=== PATIENT | female | born 1945 | race Caucasian/White ===

== ENCOUNTER 2021-10-30 08:20 | Day surgery (SDC) | payer OTHER ==
--- NOTE | 2021-10-29 12:44 | RAD REPORT ---
EXAM DESCRIPTION: Raciel Schmitz And Lupe (2 Views)10/29/2021 12:33 pm CLINICAL HISTORY: Preop for cardiac catheterization. Hypertension COMPARISON: None FINDINGS: The lungs appear clear of acute infiltrate. The heart is normal size IMPRESSION: No acute abnormalities displayed
[2021-10-29 13:07] LABS: Protime INR 0.94
[2021-10-29 13:32] LABS: Absolute Lymphocytes (CBC) 1.4 K/uL (0.7-4.9); Hematocrit 41.5 % (36.0-45.0); Lymphocytes % 27.6 % (15.3-44.8); MCV 96.7 fL (80-100); MPV 8.5 fL (7.6-11.3); RBC Red Blood Cell Count 4.29 M/uL (3.86-4.86)
[2021-10-29 13:50] LABS: Potassium 3.8 mmol/L (3.5-5.1)
[2021-10-30] MEDS ORDERED: NA CHLORIDE 0.9% 500 ML ONE (08:37)
[2021-10-30] MEDS ORDERED: FENTANYL CITR 100 MCG/2 ML ONE (08:59)
[2021-10-30] MEDS ORDERED: ATROPINE SULF 1 MG/10 ML SYR IV ONE (09:00)
[2021-10-30] MEDS ORDERED: MIDAZOLAM HCL 2 MG/2 ML INJ ONE (09:00)
[2021-10-30] MEDS ORDERED: NA CHLORIDE 0.9% 0 ML IV ONE (09:00)
[2021-10-30] MEDS ORDERED: DIPHENHYDRAMINE 50 MG/ML VIAL ONE (09:07)
[2021-10-30] MEDS ORDERED: METHYLPREDNISOLONE 125 MG INJ ONE (09:07)
[2021-10-30] MEDS ORDERED: HEPA 1000U/500MLS 1,000 UNIT/500 ML BAG IV ONE (09:27)
[2021-10-30 11:19] VITALS: O2SAT 97
--- NOTE | 2021-10-30 11:33 | OP ---
Date of Procedure: 10/30/2021 Surgeon: Randal Jeter MD [employer] Salesperson: Ms. Sunni Suarez. The patient will be at bedrest for 2 hours after her Angio-Seal and she will go home after that. We will see her in the office in the next 2 weeks. No change in medical therapy for now. Admitted on 10/30/2021 to the [facility] operator for an outpatient left heart catheterization, selective delgado ry arteriogram, common femoral artery angiogram. Indication: Unstable angina and multiple cardiac risk factors. Procedure In Detail: Ms. Hunter is 75, brought to the [facility] operator today 10/30/2021 as an outpatient, p repped and draped in routine sterile fashion. Given Versed and fentanyl for sedation. She also got 125 mg of Solu-Medrol because of iodine allergies. A 6-Mohawk sheath introduced in the right common femoral artery successfully using 10 cc of Xylocaine and Seldinger technique. Common femoral artery angiogram was normal. Angio-Seal was used to close the case. Sonu catheters were used. Initiall y, JL4 and JR4 both of them failed to cannulate the coronaries. On the left side, we used a JL3.5 an d on the right side, we used a 3DRC. She was found to have a normal RCA, was right dominant. She jung d diffuse plaquing in the circumflex and LAD without any focal stenosis. The patient tolerated the p rocedure well. There were no complications. Blood Loss: 5 mL. Postoperative Diagnosis: Mild coronary artery disease. Plan: Plan is for medical therapy. Anesthesia: Total conscious sedation 45 minutes. NB/MODL Voice ID: [id number] Report ID: [id number]
[2021-10-30 11:36] VITALS: BP 135/72
== END 2021-10-30 11:50 | disposition home or self-care (01) ==
LOC: CCL 08:20
DX: I25.110 Atherosclerotic heart disease of native coronary artery with unstable angina pectoris (principal); I34.0 Nonrheumatic mitral (valve) insufficiency; I10 Essential (primary) hypertension; E78.2 Mixed hyperlipidemia; I87.2 Venous insufficiency (chronic) (peripheral); E11.9 Type 2 diabetes mellitus without complications; Z87.891 Personal history of nicotine dependence; Z79.84 Long term (current) use of oral hypoglycemic drugs; Z79.02 Long term (current) use of antithrombotics/antiplatelets; Z79.899 Other long term (current) drug therapy; Z91.040 Latex allergy status; Z91.041 Radiographic dye allergy status; Z82.49 Family history of ischemic heart disease and other diseases of the circulatory system; Z82.3 Family history of stroke
CPT/HCPCS: 36415; 71046; 80048; 82947; 85025; 85610; 85730; 93454; C1760; C1893; G0269; J0583; J1200; J1644; J2250; J2930; J3010; J7040

== ENCOUNTER 2021-11-12 18:48 | Emergency (ER) | payer OTHER ==
--- OUTSIDE RECORDS SUMMARY | 2021-11-12 18:52 | XMS REPORT | Continuity of Care Document ---
:1945 Author Organization [facility] t Address [address] [place] [address] Dr. Penaloza [address] [place] [address] Care Team Providers Name Role Phone PCP, PATIENT DOES NOT HAVE A Primary Care Physician UnavailMaryanne Jade Attending Clinician Unavailable Lab, Ang - Db Attending Clinician Unavailable Nano Jalloh MD Attending Clinician ABDIRASHID GONZALEZ Attending Clinician Unavailable Yeni Attending Clinician Unavailable Stefany Nevarez PA-C Attending Clinician Jeannie Mims Attending Clinician Yeni Admitting Clinician Unavailable Payers Payer Name Policy Type Policy Number Effective Date Expiration Date S ource MEDICARE [place]: [id number] 2009 [employer] 00:00:00 AETNA (INDEMNITY) [id number] 2003 00:00:00 Problems Condition Condition Condition Status Onset Resolution Last Treating Co mments Source Name Details Category Date Date Treatment Clinician Date Sinus Sinus Disease Active Univers bradycardi bradycardi 7-19 it y of a a 00:00: [place] [facility] NSVT NSVT Disease Active Univers (nonsustai (nonsustai 7-19 it y of archana archana 00:00: [place] ventricula ventricula 00 Me dical r r Branch tachycardi tachycardi a) a) COVID-19 COVID-19 Disease Active Unive rs virus virus 09-25 [place] Pneumonia Pneumonia Disease Active Uni vers due to due to 09-25 [place] organism organism 00 Medica l Branch Hypoxia Hypoxia Disease Active Univers 7-17 ity of 00:00: [place] [facility] Pure Pure Disease Active 2009-03 Univers hyperchole hyperchole 1-29 it y of sterolemia sterolemia [place] Type II or Type II or Disease Active U nivers unspecifie unspecifie 4-06 it y of d type d type 00:00: [place] diabetes diabetes 00 Medica l mellitus mellitus Branch with with peripheral peripheral 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 Utility Essential Essential Disease Active Overview: Univers hypertensi hypertensi 3-27 Formattin ity of on on 00:00: g of this [place] 00 note Medical might be Branch different from the original. 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 Utility Allergies, Adverse Reactions, Alerts Allergy Allergy Status Severity Reaction(s) Onset Inactive Treating Comm ents Source Name Type Date Date Clinician iodine DA Active [facility] 09-24 [place] 00:00: [facility] tubercul DA Active [facility] in,PPD,m 718 [place] ulti-pun 00:00: Orthope cture 00 dic Hospita l nickel DA Active SV [facility] 09-24 [place] 00:00: [facility] 00 dic Hospita l latex DA Active MO [facility] 09-24 [place] 00:00: [facility]ope 00 dic Hospita l iodine DA Active [facility] 7-10 [facility] 00:[facility]: [facility]ospita 00 l of [place] tubercul DA Active [facility] in,PPD,m 7-10 [facility] ulti-pun 00:00: Hospita cture 00 l of [place] nickel DA Active [facility] 7-10 [facility] 00:00: Hospita 00 l of [place] iodine DA Active MO [facility] 5- Woman's 00:00: Hospita 00 l of [place] nickel DA Active MO [facility] 5- Woman's 00:00: Hospita 00 l of [place] latex DA Active MO [facility] 5- Woman's 00:00: Hospita 00 l of [place] Latex Propensi Active Rash Burning/p Unive rs ty to 05-26 ain ity of adverse 00:00: [place] reaction 00 Medical s Branch LATEX DRUG Active High Rash Univers INGREDI 05-26 ity of 00:00: [place] 00 Medical Branch iodine DA Active MO 2012-03 [facility] 03-10 [place] 00:00: [facility] 00 dic Hospita l niacin DA Active MO 2012-03 [facility] 03-10 [place] 00:00: [facility] 00 dic Hospita l latex DA Active MO 2012-03 [facility] 03-10 [place] 00:00: Orthope 00 dic Hospita l Iodine Propensi Active Anaphylaxis Uni vers ty to 327 ity of adverse 00:00: [place] reaction 00 Medical s Branch IODINE DRUG Active Anaphylaxis Unive rs INGREDI 06-03 ity of 00:00: [place] 00 Medical Branch Social History Social Habit Start Date Stop Date Quantity Comments Source Exposure to 2021-09-17 2021-09-27 Yes [facility] SARS-CoV-2 00:00:00 14:14:00 [place] [facility] (event) Branch Alcohol intake 2021-09-27 2021-09-27 Current University 00:00:00 00:00:00 non-drinker of [facility] alcohol (finding) [place] Tobacco use and 2021-09-24 2021-09-24 Smokeless tobacco Un iversity of exposure 00:00:00 00:00:00 non-user [facility] Sex Ass[birth year] Universit y of 00:00:00 00:00:00 [facility] Smoking Status Start Date Stop Date Source Never smoked tobacco [facility] Medications Ordered Filled Start Stop Current Ordering Indication Dosage Frequency Signature Comments Components Source Medication Medication Date Date Medication? Clinician (SIG) Name Name lisinopriL 2021- Yes [id number] 10mg Take 1 Univers 10 mg 7-21 10-20 tablet by ity of tablet 00:00: 04:59 mouth at [place] 00 :00 bedtime Medical for 90 Branch days. metFORMIN 2021- Yes [id number] 500mg Take 1 Univers 500 mg 7-21 10-20 tablet by ity of tablet 00:00: 04:59 mouth in [place] 00 :00 the Medical morning Branch for 90 days. mirtazapine 2021- Yes [id number] 7.5mg Take 1 Univers 7.5 mg 7-21 10-20 tablet by ity of tablet 00:00: 04:59 mouth at [place] 00 :00 bedtime Medical for 90 Branch days. Immunizations Ordered Filled Immunization Date Status Comments Sourc e Immunization Name Name Influenza Virus 2017-12-04 Completed Universit y of Vaccine [facility] 00:00:00 [place] Med ical Multi-dose 6+ MO Branch Pneumococcal 2012-09-23 Completed University o f Polysaccharide, 00:00:00 [place] Med ical PPSV23 (PNEUMOVAX) Branch Procedures Procedure Date / Time Performing Clinician Source Performed URINE CULTURE 2021-10-10 [facility]:19[facility] 2021-09-28 14:15:00 Yeimi [facility] HORMONE [facility] MICROALBUMIN URINE 2021-09-28 14:15:00 [facility] COMP. METABOLIC PANEL 2021-09-28 14:15:00 [id number] [place] LIPID PANEL 2021-09-28 14:15:00 [facility] ([id number])(TOTAL Medical Branch CHOLESTEROL, TRIGLYCERIDES, HDL) GLYCOSYLATED HEMOGLOBIN 2021-09-28 14:15:00 [facility] [place] ([facility] URINALYSIS 2021-09-28 14:15:00 [facility] HCV ANTIBODY 2021-09-28 14:15:00 [facility] VITAMIN D, 25-OH 2021-09-28 14:15:00 [facility] Encounters Start End Encounter Admission Attending Care Care Encounter Source Date/Time Date/Time Type Type Clinicians Facility Department ID 2021-04-[address] [id number] Common 13:37:37 Maryanne [address] [facility] 2021-09-28 2021-09-28 [place] [facility], Ang - Db [facility] [id number] Univers 09:00:00 09:46:20 [facility] [id number] [facility] [id number] Vito as MANASA?BLEA [phone] [place] [address] MEDICAL OFFICE BUILDING 2021-09-24 2021-09-24 Emergency X CARLOS HIMAMI ERT [id number] Univers 14:04:00 16:04:00 ABDIRASHID [facility] 2020-08-01 2020-08-01 Outpatient Scott_Harsha [facility] [id number] [place] 12:42:00 12:42:00 [id number] [facility] 2020-06-282020-06-28 Office Roque [facility] [id number] 13:40:14 14:10:14 Visit Stefany [facility] [id number] [place] [id number] [phone] Primary & 144 Specialty Care 2020-06-23 2020-06-23 Ancillary Rod [facility] [id number] 14:28:32 15:13:32 Visit [facility] [id number] [place] [id number] [phone] Primary & 141 Specialty Care Results Test Description Test Time Test Comments Results Result Comments Source HCV ANTIBODY 2021-09-28 22:13:17 Test Item Value Reference Range Interpretation Comme nts HCV Ab (test code = 46459-0) Negative HCV Semi-Quantitative (test code = 25889-0) [place] [facility] (A1C)2021-09-28 21:54:30 Test Item Value Reference Range Interpretation Comments HGB A1C (test code = 6.6 % 4-5.7 H 4548-4) YAHAIRA (test code = YAHAIRA) Reference RangesNormal: <5.7%Prediabetes: 5.7 - 6.4%Diabetes: > 6.5% Lab Interpretation (test Abnormal code = 62353-8) [place] [facility], [id number] 21:50:12 Test Item Value Reference Range Interpretation Comments VIT D 25OH (test code = 46 ng/mL 25-80 02712-4) YAHAIRA (test code = YAHAIRA) Deficiency: <20 ng/mLInsufficiency : 20-24 ng/mLOptimal: 25-80 ng/mL Lab Interpretation (test Normal code = 40623-2) [place] [facility] [id number] 21:08:47 Test Item Value Reference Range Interpretation Comments TSH (test code = See_Comment [Automated message] [id number]) The system [employer] generated this result transmitted ref erence range: 0.45 - 4 .70 mIU/L. The refe rence range was not u sed to interpret this result as normal/abnor mal. Lab Interpretation (test Normal code = 85795-5) [facility] [place] [facility]. METABOLIC PANEL ([id number])2021-09-28 20:52:03 Test Item Value Reference Range Interpretation Comments NA (test code = 142 mmol/L 135-145 3968723823) K (test code = 3.9 mmol/L 3.5-5 5341609447) CL (test code = 105 mmol/L 98-108 7445661973) CO2 TOTAL (test code = 31 mmol/L 23-31 1275471675) AGAP (test code = 2-16 1404691803) BUN (test code = 14 mg/dL 7-23 3717646569) GLUCOSE (test code = 98 mg/dL 70-110 4783910417) CREATININE (test code = 0.84 mg/dL 0.5-1.04 3587429384) TOTAL BILI (test code = 0.3 mg/dL 0.1-1.5 4443538375) CALCIUM (test code = 8.5 mg/dL 8.6-10.6 L 7339092700) T PROTEIN (test code = 5.7 g/dL 6.3-8.2 L 9764477816) ALBUMIN (test code = 3.5 g/dL 3.5-5 8056909490) ALK PHOS (test code = 68 U/L 34-122 0728220974) ALTv (test code = 15 U/L 5-35 1742-6) AST(SGOT) (test code = 26 U/L 13-40 7791063689) eGFR (test code = mL/min/1.73m2 1201949506) YAHAIRA (test code = YAHAIRA) Association of Glomerular Filtration Rate (GFR) and Staging of Kidney Disease* + --+ --+ ------+| GFR (mL/min/1.73 m2) ?| With Kidney Damage ?| ?Without Kidney Damage+ --------+ --------+ +| ?>90 ?| ?Stage one ?| ? Normal ?+ ---+ ---+ -------+| ?60-89 ?| ?Stage two ?| ? Decreased GFR ? + --+ --+ ------+| ?30-59 ?| ?Stage three ?| ? Stage three ? + --+ --+ ------+| ?15-29 ?| ?Stage four ? | ? Stage four ?+ ---+ ---+ -------+| ?<15 (or dialysis) ? ?| ?Stage five ? | ? Stage five ?+ ---+ ---+ -------+ *Each stage assumes the associated GFR level has been in effect for at least three months. ?Stages 1 to 5, with or without kidney disease, indicate chronic kidney disease. Notes: Determination of stages one and two (with eGFR >59mL/min/1.73 m2) requires estimation of kidney damage for at least three months as defined by structural or functional abnormalities of the kidney, manifested by either:Pathological abnormalities or Markers of kidney damage (including abnormalities in the composition of the blood or urine or abnormalities in imaging tests). Lab Interpretation Abnormal (test code = 72798-4) [place] [facility] (98157)(TOTAL CHOLESTEROL, TRIGLYCERIDES, HDL)2021-09-28 20:52:03 Test Item Value Reference Range Interpretation Comments CHOL (test code = 176 mg/dL 120-200 6434787506) HDL (test code = 45 mg/dL See_Comment L [Automated message] [id number]) The system [employer]am[employer] generated this result transmit john reference range : >=50. The refer ence range was not u sed to interpret th is result as normal/abnormal . HDLC RATIO (test code = See_Comment [Au tomated message] 5812513440) The system [employer] generated this result transmit john reference range : <=4.5. The refe rence range was not u sed to interpret th is result as normal/abnormal . TRIG (test code = 81 mg/dL 30-170 2476980265) LDL CHOL (test code = 115 mg/dL See_Comment [Auto mated message] 09695-4) The system [employer] generated this result transmit john reference range : <=160. The refe rence range was not u sed to interpret th is result as normal/abnormal . VLDL (test code = 16 mg/dL 5-60 1915035533) Lab Interpretation (test Abnormal code = 79335-3) [place] [facility]2019-07-19 17:21:00 Test Item Value Reference Range Interpretation Comments GLUBED (test code = GLUBED) 192 mg/dL 60-125 H [id number] 12:43:00 Test Item Value Reference Range Interpretation Comments GLUBED (test code = GLUBED) 138 mg/dL 60-125 H BASIC METABOLIC [id number] 07:12:00 Test Item Value Reference Range Interpretation Comments SODIUM (test code = NA) 140 mEq/L 135-145 POTASSIUM (test code = 4.8 mEq/L 3.5-5.0 K) CHLORIDE (test code = 106 mEq/L 100-115 CL) CARBON DIOXIDE (test 27 mEq/L 22-31 code = CO2) GLUCOSE (test code = 168 mg/dL 65-110 H GLU) BLOOD UREA NITROGEN 25 mg/dL 7-18 H (test code = BUN) GLOMERULAR FILTRATION 54.3 >60 Unit o f measure: RATE (test code = GFR) mL/mi n/1.73 w3Eybrytwcv Range:Healthy A dults >90 mL/min/1.73 m2 For Chronic Kid eda Disease: Stage II Mild Decrease i n GFR 60-90 Stage III Moderate Decrea se in GFR 30-59 Stag e IV Severe Decrease in GFR 15-29 Stage V Kidney Failure <15Unit of ruby ure: mL/min/1.73 x4Tdlopvets Range:Healthy A dults >90 mL/min/1.73 m2 For Chronic Kid eda Disease: Stage II Mild Decrease i n GFR 60-90 Stage III Moderate Decrea se in GFR 30-59 Stage IV Severe Decrease in GFR 15-29 Stag e V Kidney Failure <15 CREATININE (test code = 1.0 mg/dL 0.5-1.0 CREAT) CALCIUM (test code = 7.4 mg/dL 8.4-10.2 L CA) BASIC METABOLIC [id number] 07:11:00 Test Item Value Reference Range Interpretation Comments SODIUM (test code = NA) 140 mEq/L 135-145 N POTASSIUM (test code = K) 4.8 mEq/L 3.5-5.0 N CHLORIDE (test code = CL) 106 mEq/L 100-115 N CARBON DIOXIDE (test code = CO2) 27 mEq/L 22-31 N GLUCOSE (test code = GLU) 168 mg/dL 65-110 H BLOOD UREA NITROGEN (test code = 25 mg/dL 7-18 H BUN) GLOMERULAR FILTRATION RATE (test 54 ml/min >60 L code = GFR) CREATININE (test code = CREAT) 1.0 mg/dL 0.5-1.0 N CALCIUM (test code = CA) 7.4 mg/dL 8.4-10.2 L HGB [id number] 05:48:00 Test Item Value Reference Range Interpretation Comments HEMOGLOBIN (test code = HGB) 9.2 g/dL 12-16 L HEMATOCRIT (test code = HCT) 27.3 % 37-47 L [id number] 05:27:00 Test Item Value Reference Range Interpretation Comments GLUBED (test code = GLUBED) 150 mg/dL 60-125 H [id number] 20:15:00 Test Item Value Reference Range Interpretation Comments GLUBED (test code = GLUBED) 152 mg/dL 60-125 H [id number] 16:53:00 Test Item Value Reference Range Interpretation Comments GLUBED (test code = GLUBED) 170 mg/dL 60-125 H - XR PELVIS 1/2 [id number] 16:35:00 Patient Name: MAT WILLIAMSON Unit No: [id number] EXAMS: CPT CODE: [id number] XR PELVIS 1/2 VIEWS 19701 INTRAOPERATIVE LEG LENGTH FILM COMMENT: COMPARISON: No prior exams available. In progressright hip replacement is noted. AP PORTABLE RIGHT HIP COMMENT: The patient is status post joint replacement which is articulating normally. at 1635 Reported and signed by: Jake Shahid MD CC: Akin Ragsdale Technologist: MARU MANRIQUEZ (RT.R) Transcribed D/ (0655) t.CAMERON [facility] NAME: MAT WILLIAMSON [address] [facility] PHYS: Akin Kay : 1945 AGE: 72 SEX: F [place], [place] [address] LOC: Y.522 A PHONE #: [phone] EXAM DATE: 09/24/2018 ST ATUS: ADM IN FAX #: [phone] RAD #: D/C DT PAGE 1 Signed Report Patient Name: MAT WILLIAMSON Unit No: [id number] EXAMS: CPT CODE: [id number] XR PELVIS 1/2 VIEWS 18138 (Continued) Orig Print D/T: S: 09/24/2018 (163) [facility] NAME: MAT WILLIAMSON [address] [facility] PHYS: Akin Kay : 1945 AGE: 72 SEX: F [place], [place] [address] LOC: Y.522 A PHONE #: [phone] EXAM DATE: 09/24/2018 STATUS: ADM IN FAX #: [phone] RAD #: D/C DT PAGE 2 Signed Report - XR PELVIS 1/2 [id number] 16:35:00 Patient Name: MAT WILLIAMSON Unit No: [id number] EXAMS: CPT CODE: [id number] XR PELVIS 1/2 VIEWS 01489 INTRAOPERATIVE LEG LENGTH FILM COMMENT: COMPARISON: No prior exams available. In progressright hip replacement is noted. AP PORTABLE RIGHT HIP COMMENT: The patient is status post joint replacement which is articulating normally. at 1635 Reported and signed by: Jake Shahid MD CC: Akin Ragsdale Technologist: DESTINY YORK RT(R) Transcribed D/ (3605) DesiraeJCL [facility] NAME: MAT WILLIAMSON [address] [facility] PHYS: [place] - Akin Ragsdale : 1945 AGE: 72 SEX: F [place], [place] [address] LOC: Y.522 A PHONE #: [phone] EXAM DATE: 09/24/2018 ST ATUS: ADM IN FAX #: [phone] RAD #: D/C DT PAGE 1 Signed Report Patient Name: MAT WILLIAMSON Unit No: [id number] EXAMS: CPT CODE: [id number] XR PELVIS 1/2 VIEWS 91040 (Continued) Orig Print D/T: S: 09/24/2018 (163) [facility] NAME: MAT WILLIAMSON [address] [facility] PHYS: [place] - Akin Ragsdale : 1945 AGE: 72 SEX: F [place], [place] [address] LOC: YCindi2 A PHONE #: [phone] EXAM DATE: 09/24/2018 STATUS: ADM IN FAX #: [phone] RAD #: D/C DT PAGE 2 Signed [id number] 08:12:00 Test Item Value Reference Range Interpretation Comments GLUBED (test code = GLUBED) 85 mg/dL 60-125 N AB HIV 21:46:00 Test Item Value Reference Range Interpretation Comments AB HIV 1 (test code NONREACTIVE NONREACTIVE DONE AT: [facility] = HIV1AB) [facility] [address] [place], [place] [address]Done by [facility] aur 4th Gen HIV Ag/Ab C ombo Screen AB HIV 1 21:46:00 Test Item Value Reference Range Interpretation Comments AB HIV 1 2 (test NONREACTIVE NONREACTIVE Done by Sie [employer] code = [id number]) 4th Gen HIV Ag/Ab Combo Screen PROTHROMBIN [id number] 19:20:00 Test Item Value Reference Range Interpretation Comments PROTHROMBIN TIME 10.8 secs 10.1-12.5 N PATIENT (test code = PTP) INTERNATIONAL NORMAL 0.96 <2.0 RECOMME NDED THERAPEUTIC RATIO (test code = RANGE FOR ORAL INR) ANTICOAGULANTTR EATMENT: CONDITION INRPr ophylaxis of venous throm bosis in 2.0 - 3.0 high- risk medical or surg ical patientsTreatme nt of venous thrombos is 2.0 - 3.0Prevention o f embolism 2.0 - 3.0Prevention o f recurrent embol ism, or 3.0 - 4.5 patie nts with mechanical pros thetic intravascular v victor IS PATIENT ON ANTICOAGULANTS ? YLIST ANTICOAGULANT/ANTI PLT MEDICATION : AspirinHas Lab been notified if Patient is on Heparin Drip? NOIf Yes, order CBC, OCCULT BLOOD, PT every other day NTHROMBOPLASTIN TIME [id number] 19:20:00 Test Item Value Reference Range Interpretation Comments PTT ACTIVATED (test code = APTT) 29.9 secs 24.9-37.0 N IS PATIENT ON ANTICOAGULANTS ? YLIST ANTICOAGULANT/ANTI PLT MEDICATION : AspirinHas Lab been notified if Patient is on Heparin Drip? NOIf Yes, order CBC, OCCULT BLOOD, PT every other day NCOMPREHENSIVE METABOLIC [id number] 19:17:00 Test Item Value Reference Range Interpretation Comments SODIUM (test code = 142 mmol/L 136-145 N NA) POTASSIUM (test code = 3.7 mmol/L 3.5-5.1 N K) CHLORIDE (test code = 102.0 mmol/L 98-107 N CL) CARBON DIOXIDE (test 29.2 mmol/L 21-32 N code = CO2) GLUCOSE (test code = 87 mg/dL 70-110 N GLU) BLOOD UREA NITROGEN 22 mg/dL 7-18 H (test code = BUN) GLOMERULAR FILTRATION 52.5 >60 Unit o f measure: RATE (test code = GFR) mL/mi n/1.73 [id number] Range:Healthy Adults >90 mL/min/1.73 m2 For Chronic Kidney Disease: Stage II Mild Decrease i n GFR 60-90 Stage III Moderate Decrea se in GFR 30-59 St age IV Severe Decre ase in GFR 15-29 St age V Kidney Failur e <15 CREATININE (test code 1.03 mg/dL 0.55-1.30 N = CREAT) TOTAL PROTEIN (test 6.8 g/dL 6.4-8.2 N code = PROT) ALBUMIN (test code = 3.9 g/dL 3.4-5.0 N ALB) GLOBULIN (test code = 2.9 g/dL 2.2-4.2 N GLOB) ALBUMIN/GLOBULIN RATIO 1.3 0.7-2.0 N (test code = A/G) CALCIUM (test code = 8.9 mg/dL 8.2-10.1 N CA) BILIRUBIN TOTAL (test 0.27 mg/dL 0.2-1.00 N code = BILT) SGOT/AST (test code = 21.0 U/L 15-37 N AST) SGPT/ALT (test code = 23.0 U/L 12-78 N Please note new ALT) normal range. ALKALINE PHOSPHATASE 91 U/L 46-116 N TOTAL (test code = ALKP) URINALYSIS [id number] 19:02:00 Test Item Value Reference Range Interpretation Comments UA COLOR (test code = COLU) YELLOW YELLOW UA APPEARANCE (test code = CLEAR CLEAR APPU) UA GLUCOSE DIPSTICK (test code NEGATIVE NEGATIVE = DGLUU) UA BILIRUBIN DIPSTICK (test NEGATIVE NEGATIVE code = BILU) UA KETONE DIPSTICK (test code NEGATIVE mg/dL NEG = KETU) UA SPECIFIC GRAVITY (test code 1.010 1.003-1.035 = SGU) UA BLOOD DIPSTICK (test code = NEGATIVE NEGATIVE XAVI) UA PH DIPSTICK (test code = 6.5 >6.5 CLAUDIO) UA PROTEIN DIPSTICK (test code NEGATIVE mg/dL NEG = PROU) UA UROBILINIOGEN DIPSTICK 0.2 mg/dL NORM (test code = URO) UA NITRITE DIPSTICK (test code NEGATIVE NEG = JAMIN) UA LEUKOCYTE ESTERASE DIPSTICK TRACE NEGATIVE A (test code = LEUU) UA WBC (test code = WBCU) <5 /HPF 0-2 UA RBC (test code = RBCU) 0-2 /HPF 0-2 UA EPITHELIAL CELLS (test code FEW /HPF 0-2 = EPIU) UA BACTERIA (test code = BACU) FEW /HPF NONE CBC W/AUTO [id number] 18:55:00 Test Item Value Reference Range Interpretation Comments WHITE BLOOD CELL (test code = WBC) 5.9 K/mm3 5.8-11.0 N RED BLOOD CELL (test code = RBC) 3.79 M/mm3 4.2-5.4 L HEMOGLOBIN (test code = HGB) 11.8 g/dL 12-16 L HEMATOCRIT (test code = HCT) 35.8 % 37-47 L MEAN CELL VOLUME (test code = MCV) 95 fL 80-98 N MEAN CELL HGB (test code = MCH) 31.1 pg 27-34 N MEAN CELL HGB CONCENTRATION (test 33.0 g/dL 30.8-34.1 N code = MCHC) RED CELL DISTRIBUTION WIDTH (test 13.5 % 11-16 N code = RDW) PLT (test code = PLT) 187 K/mm3 130-400 N MEAN PLATELET VOLUME (test code = 11.5 fL 8.9-12.1 N MPV) NEUTROPHIL % (test code = NT%) 59.3 % 45-70 N LYMPHOCYTE % (test code = LY%) 32.7 % 20-40 N MONOCYTE % (test code = MO%) 5.6 % 3-10 N EOSINOPHIL % (test code = EO%) 1.9 % 1-5 N BASOPHIL % (test code = BA%) 0.3 % 0.0-1.1 N NEUTROPHIL # (test code = NT#) 3.51 K/mm3 2.00-7.50 N LYMPHOCYTE # (test code = LY#) 1.93 K/mm3 1.50-4.00 N MONOCYTE # (test code = MO#) 0.33 K/mm3 0.2-0.8 N EOSINOPHIL # (test code = EO#) 0.11 K/mm3 0.04-0.4 N BASOPHIL # (test code = BA#) 0.02 K/mm3 0.02-0.10 N MANUAL DIFF REQUIRED (test code = NO MANUAL DIFF MDIFF) NUCLEATED RED BLOOD CELL (test 0 % 0-0 N code = NRBC) GLYCOSYLATED HEMOGLOBIN (HA1C)2018-07-08 20:05:00 Test Item Value Reference Range Interpretation Comments GLYCOSYLATED 6.5 % 4.8-5.9 H Any condition t hat shortens HEMOGLOBIN (HA1C) erythocyte survival or (test code = GLYHGB) decreas esmean erythrocyte age (e.g., harmony very from acute blood los s,hemolytic anemai) will fa lsely lower HGBA1c resultsr egardless of the method used . HGBA1c results frompat ients with HbSS, HbCC and HbSc must be interpreted wit hcaution given the patho logical processes, incl uding anemia,increase d red cell turnover, trans fusion requirements, t hatadversely impact HGBA1c a s a marker of long-term glycemiccontrol . Alternative for ms of testing such as fructosaminesho uld be considered for these patients.DONE A T: [facility] [id number] [address], [place], [place] [address] GLYCOSYLATED HEMOGLOBIN [id number] 19:01:00 Test Item Value Reference Range Interpretation Comments GLYCOSYLATED 6.5 % 4.8-5.9 H Any condition t hat HEMOGLOBIN (HA1C) shortens e rythocyte (test code = survival or dec reasesmean GLYHGB) erythrocyte age (e.g., recovery from a cute blood loss,hemolytic anemia) will falsely lo wer HGBA1c resultsregardle ss of the method used. HG BA1c results from darrell prasad HbSS, HbCC, and HbSc must be interpreted with cautiongiven th e pathological pr ocesses, including anemia,increase d red cell turnover, trans fusion requirements, thatadversely i mpact HGBA1c as a mar ker of long-term glycemiccontrol . Alternative for ms of testing such as fructosaminesho uld be considered for these patients. MEAN BLOOD GLUCOSE 140 MG/DL 70-110 H (test code = MBG) COMPREHENSIVE METABOLIC [id number] 17:18:00 Test Item Value Reference Range Interpretation Comments SODIUM (test code = 139 mmol/L 136-145 N NA) POTASSIUM (test code = 3.9 mmol/L 3.5-5.1 N K) CHLORIDE (test code = 102.0 mmol/L 98-107 N CL) CARBON DIOXIDE (test 27.4 mmol/L 21-32 N code = CO2) GLUCOSE (test code = 98 mg/dL 70-110 N GLU) BLOOD UREA NITROGEN 14 mg/dL 7-18 N (test code = BUN) GLOMERULAR FILTRATION 59.8 >60 Unit o f measure: RATE (test code = GFR) mL/mi n/1.73 [id number] Range:Healthy Adults >90 mL/min/1.73 m2 For Chronic Kidney Disease: Stage II Mild Decrease i n GFR 60-90 Stage III Moderate Decrea se in GFR 30-59 St age IV Severe Decre ase in GFR 15-29 St age V Kidney Failur e <15 CREATININE (test code 0.92 mg/dL 0.55-1.30 N = CREAT) TOTAL PROTEIN (test 6.4 g/dL 6.4-8.2 N code = PROT) ALBUMIN (test code = 3.7 g/dL 3.4-5.0 N ALB) GLOBULIN (test code = 2.7 g/dL 2.2-4.2 N GLOB) ALBUMIN/GLOBULIN RATIO 1.4 0.7-2.0 N (test code = A/G) CALCIUM (test code = 8.6 mg/dL 8.2-10.1 N CA) BILIRUBIN TOTAL (test 0.33 mg/dL 0.2-1.00 N code = BILT) SGOT/AST (test code = 20.0 U/L 15-37 N AST) SGPT/ALT (test code = 23.0 U/L 12-78 N Please note new ALT) normal range. ALKALINE PHOSPHATASE 93 U/L 46-116 N TOTAL (test code = ALKP) PROTHROMBIN [id number] 16:54:00 Test Item Value Reference Range Interpretation Comments PROTHROMBIN TIME 10.4 secs 10.1-12.5 N PATIENT (test code = PTP) INTERNATIONAL NORMAL 0.92 <2.0 RECOMME NDED THERAPEUTIC RATIO (test code = RANGE FOR ORAL INR) ANTICOAGULANTTR EATMENT: CONDITION INRPr ophylaxis of venous throm bosis in 2.0 - 3.0 high- risk medical or surg ical patientsTreatme nt of venous thrombos is 2.0 - 3.0Prevention o f embolism 2.0 - 3.0Prevention o f recurrent embol ism, or 3.0 - 4.5 patie nts with mechanical pros thetic intravascular v victor IS PATIENT ON ANTICOAGULANTS ? YLIST ANTICOAGULANT/ANTI PLT MEDICATION : AspirinHas Lab been notified if Patient is on Heparin Drip? NOIf Yes, order CBC, OCCULT BLOOD, PT every other day NTHROMBOPLASTIN TIME [id number] 16:54:00 Test Item Value Reference Range Interpretation Comments PTT ACTIVATED (test code = APTT) 29.6 secs 24.9-37.0 N IS PATIENT ON ANTICOAGULANTS ? YLIST ANTICOAGULANT/ANTI PLT MEDICATION : AspirinHas Lab been notified if Patient is on Heparin Drip? NOIf Yes, order CBC, OCCULT BLOOD, PT every other day NCBC W/AUTO [id number] 16:21:00 Test Item Value Reference Range Interpretation Comments WHITE BLOOD CELL (test code = WBC) 5.5 K/mm3 5.8-11.0 L RED BLOOD CELL (test code = RBC) 3.73 M/mm3 4.2-5.4 L HEMOGLOBIN (test code = HGB) 11.6 g/dL 12-16 L HEMATOCRIT (test code = HCT) 35.1 % 37-47 L MEAN CELL VOLUME (test code = MCV) 94 fL 80-98 N MEAN CELL HGB (test code = MCH) 31.1 pg 27-34 N MEAN CELL HGB CONCENTRATION (test 33.0 g/dL 30.8-34.1 N code = MCHC) RED CELL DISTRIBUTION WIDTH (test 13.9 % 11-16 N code = RDW) PLT (test code = PLT) 195 K/mm3 130-400 N MEAN PLATELET VOLUME (test code = 11.1 fL 8.9-12.1 N MPV) NEUTROPHIL % (test code = NT%) 64.1 % 45-70 N LYMPHOCYTE % (test code = LY%) 26.9 % 20-40 N MONOCYTE % (test code = MO%) 7.1 % 3-10 N EOSINOPHIL % (test code = EO%) 1.3 % 1-5 N BASOPHIL % (test code = BA%) 0.4 % 0.0-1.1 N NEUTROPHIL # (test code = NT#) 3.53 K/mm3 2.00-7.50 N LYMPHOCYTE # (test code = LY#) 1.48 K/mm3 1.50-4.00 L MONOCYTE # (test code = MO#) 0.39 K/mm3 0.2-0.8 N EOSINOPHIL # (test code = EO#) 0.07 K/mm3 0.04-0.4 N BASOPHIL # (test code = BA#) 0.02 K/mm3 0.02-0.10 N MANUAL DIFF REQUIRED (test code = NO MANUAL DIFF MDIFF) NUCLEATED RED BLOOD CELL (test 0 % 0-0 N code = NRBC)
[2021-11-12] MEDS ORDERED: IBUPROFEN 200 MG TAB PO ONE (20:11)
[2021-11-12] MEDS ORDERED: IBUPROFEN 400 MG TAB ONE (20:11)
--- NOTE | 2021-11-12 20:57 | RAD REPORT ---
EXAM DESCRIPTION: RAD - Hand Left 3 View - 11/12/2021 8:50 pm CLINICAL HISTORY: PAIN COMPARISON: No comparisonsNo comparisons FINDINGS/IMPRESSION: No acute fracture. No malalignment. Moderate degenerative changes are present a t the base of the thumb.
--- NOTE | 2021-11-12 21:13 | ER ---
Nurse's Notes [facility] Name: Kathie Hunter Age: 75 yrs Sex: Female : 1945 Arrival Date: 11/12/2021 Time: 18:51 Bed 8 Private MD: Diagnosis: Pain in left hand Presentation: 11/12 18:55 Chief complaint: Patient states: I have left hand pain. My left hand hurts like hell. bm7 Coronavirus screen: At this time, the client does not indicate any symptoms associated with coronavirus-19. Ebola Screen: No symptoms or risks identified at this time. Initial Sepsis Screen: Does the patient meet any 2 criteria? No. Patient's initial sepsis screen is negative. Does the patient have a suspected source of infection? No. Patient's initial sepsis screen is negative. Risk Assessment: Do you want to hurt yourself or someone else? Patient reports no desire to harm self or others. Onset of symptoms is unknown. 18:55 Method Of Arrival: Ambulatory [facility] 18:55 Acuity: MAURICE 4 bm7 Triage Assessment: 18:56 General: Appears in no apparent distress. uncomfortable, Behavior is calm, cooperative, bm7 appropriate for age. Pain: Complains of pain in left hand Pain does not radiate. EENT: No deficits noted. No signs and/or symptoms were reported regarding the EENT system. Neuro: No deficits noted. Denies numbness in left hand. Cardiovascular: No deficits noted. Respiratory: No deficits noted. GI: No deficits noted. No signs and/or symptoms were reported involving the gastrointestinal system. : No deficits noted. No signs and/or symptoms were reported regarding the genitourinary system. Derm: No deficits noted. No signs and/or symptoms reported regarding the dermatologic system. Skin is intact, is healthy with good turgor, is fragile, is thin, Skin is dry, Skin is pink, warm \T\ dry. Skin temperature is warm. Musculoskeletal: Reports pain in left hand. Historical: - Allergies: 18:56 Iodine (Anaphylaxis); bm7 18:56 Latex, Natural Rubber; bm7 - Home Meds: 18:56 None [Active]; bm7 - PMHx: 18:56 diabetes mellitus; High Cholesterol; Hypertensive disorder; bm7 - PSHx: 18:56 TOTAL HIP REPLACEMENT; GASTRIC BYPASS; Tonsillectomy; HYSTERECTOMY; bm7 - Immunization history:: Adult Immunizations up to date, Client reports having NOT received the Covid vaccine. - Social history:: Smoking status: Patient denies any tobacco usage or history of. Screenin:31 Abuse screen: Denies threats or abuse. Nutritional screening: No deficits noted. vc1 Tuberculosis screening: No symptoms or risk factors identified. Fall Risk None identified. Vital Signs: 18:55 BP 185 / 95; Pulse 60; Resp 16; Temp 98.3(TE); Pulse Ox 100% on R/A; Weight 58.97 kg bm7 (R); Height 5 ft. 5 in. (165.10 cm); Pain 10/10; 21:07 BP 179 / 96; Pulse 57; Resp 16; Pulse Ox 100% ; vc1 18:55 Body Mass Index 21.63 (58.97 kg, 165.10 cm) bm7 ED Course: 18:51 Patient arrived in ED. ja2 18:56 Triage completed. bm7 18:56 Arm band placed on left wrist. bm7 19:01 Emanuel Rashid PA is PHCP. cp 19:01 Rogelio Zavala MD is Attending Physician. cp 19:47 David Lerner, AKUA is Primary Nurse. as6 19:50 Patient has correct armband on for positive identification. Bed in low position. Call vc1 light in reach. 20:52 XRAY Hand LEFT 3 View In Process Unspecified. EDMS 21:11 Les Morton MD is Referral Physician. cp 21:31 No provider procedures requiring assistance completed. Patient did not have IV access vc1 during this emergency room visit. Administered Medications: 20:04 Drug: Ibuprofen 600 mg Route: PO; vc1 21:30 Follow up: Response: No adverse reaction; Marked relief of symptoms vc1 Medication: 21:31 VIS not applicable for this client. vc1 Outcome: 21:13 Discharge ordered by . cp 21:31 Discharged to home ambulatory. vc1 21:31 Condition: good 21:31 Discharge instructions given to patient, Instructed on discharge instructions, follow up and referral plans. Demonstrated understanding of instructions, follow-up care. 21:43 Patient left the ED. vc1 Signatures: Dispatcher [employer] EDAR Emanuel Rashid PA PA Dona Kothari, RN RN bm7 Aisha Barnhart Ashby, RN RN as6 Caitlyn Fenton, RN RN vc1
--- NOTE | 2021-11-12 21:13 | EDPHYS ---
Physician Documentation [facility] Name: Kathie Hunter Age: 75 yrs Sex: Female : 1945 Arrival Date: 11/12/2021 Time: 18:51 Bed 8 Private MD: ED Physician Rogelio Zavala HPI: 11/12 20:00 This 75 yrs old Female presents to ER via Ambulatory with complaints of Hand Pain. cp 20:00 The patient or guardian reports pain, tenderness. The complaints affect the left fourth cp and fifth fingers. Context: resulted from an unknown cause. 20:00 Onset: The symptoms/episode began/occurred gradually, and became worse last night. cp 20:00 Associated signs and symptoms: Pertinent positives: tingling of left fourth and fifth cp fingers, Pertinent negatives: cyanosis distally. Severity of symptoms: in the emergency department the symptoms are unchanged, despite home interventions. Historical: - Allergies: 18:56 Iodine (Anaphylaxis); bm7 18:56 Latex, Natural Rubber; bm7 - Home Meds: 18:56 None [Active]; bm7 - PMHx: 18:56 diabetes mellitus; High Cholesterol; Hypertensive disorder; bm7 - PSHx: 18:56 TOTAL HIP REPLACEMENT; GASTRIC BYPASS; Tonsillectomy; HYSTERECTOMY; bm7 - Immunization history:: Adult Immunizations up to date, Client reports having NOT received the Covid vaccine. - Social history:: Smoking status: Patient denies any tobacco usage or history of. ROS: 20:05 Constitutional: Negative for chills, fever. cp 20:05 Neck: Negative for pain with movement, pain at rest, stiffness. cp 20:05 Back: Negative for pain at rest, pain with movement. 20:05 MS/extremity: Positive for pain, paresthesias, tenderness, of the left hand, Negative for injury or acute deformity, decreased range of motion, swelling, warmth. 20:05 All other systems are negative. Exam: 20:10 Constitutional: The patient appears in no acute distress, alert, awake, well developed, cp well nourished. 20:10 Head/Face: Normocephalic, atraumatic. cp 20:10 Neck: ROM/movement: is normal, is supple, without pain, no range of motions limitations. 20:10 Chest/axilla: Inspection: normal. 20:10 Cardiovascular: Rate: normal. 20:10 Musculoskeletal/extremity: Extremities: grossly normal except: noted in the left fourth and fifth fingers: pain, tenderness, There is no evidence of decreased ROM, deformity, ecchymosis, swelling, ROM: limited active range of motion due to pain, in the left hand, Pulses: noted to be 2+ in the left radial artery, Perfusion: the extremity is normally perfused throughout, the left fourth and fifth fingers decreased sensation. 20:10 Skin: cellulitis, is not appreciated, no rash present. Vital Signs: 18:55 BP 185 / 95; Pulse 60; Resp 16; Temp 98.3(TE); Pulse Ox 100% on R/A; Weight 58.97 kg bm7 (R); Height 5 ft. 5 in. (165.10 cm); Pain 10/10; 21:07 BP 179 / 96; Pulse 57; Resp 16; Pulse Ox 100% ; vc1 18:55 Body Mass Index 21.63 (58.97 kg, 165.10 cm) bm7 MDM: 19:48 Patient medically screened. cp 21:00 Differential diagnosis: dislocation, tendonitis, neuropathy, fracture. cp 21:12 Data reviewed: vital signs, nurses notes, radiologic studies, plain films. cp 21:12 Test interpretation: by ED physician or midlevel provider: plain radiologic studies. cp 21:12 Counseling: I had a detailed discussion with the patient and/or guardian regarding: the cp historical points, exam findings, and any diagnostic results supporting the discharge/admit diagnosis, radiology results, the need for outpatient follow up, a hand specialist, to return to the emergency department if symptoms worsen or persist or if there are any questions or concerns that arise at home. Response to treatment: the patient's symptoms have markedly improved after treatment, and as a result, I will discharge patient. 11/12 19:54 Order name: XRAY Hand LEFT 3 View; Complete Time: 21:09 cp 11/12 21:09 Order name: Splint - Thumb Spica; Complete Time: 21:30 cp Administered Medications: 20:04 Drug: Ibuprofen 600 mg Route: PO; vc1 21:30 Follow up: Response: No adverse reaction; Marked relief of symptoms vc1 Disposition Summary: 11/12/21 21:13 Discharge Ordered Location: Home cp Problem: new cp Symptoms: have improved cp Condition: Stable cp Diagnosis - Pain in left hand cp Followup: cp - With: Les Morton MD - When: 2 - 3 days - Reason: Recheck today's complaints Discharge Instructions: - Discharge Summary Sheet cp - Hand Exercises cp - Hand Pain cp Forms: - Medication Reconciliation Form cp - Thank You Letter cp - Antibiotic Education cp - Prescription Opioid Use cp Prescriptions: - Ibuprofen 600 mg Oral Tablet - take 1 tablet by ORAL route every 8 hours As needed take with food; 30 tablet; cp Refills: 0, Product Selection Permitted Signatures: Dispatcher [employer] EDMS Emanuel Rashid PA PA cp McCarthy, Brittany, RN RN bm7 Caitlyn Fenton RN RN vc1
[2021-11-12 23:16] VITALS: TEMP 98.3; O2SAT 100
[2021-11-12 23:19] VITALS: BP 179/96
== END 2021-11-12 21:43 | disposition home or self-care (01) ==
LOC: ER 18:48
DX: M79.642 Pain in left hand (principal); E11.9 Type 2 diabetes mellitus without complications; I10 Essential (primary) hypertension; Z91.040 Latex allergy status; Z91.048 Other nonmedicinal substance allergy status
CPT/HCPCS: 99283

== ENCOUNTER 2024-07-07 14:15 | Emergency (ER) | payer OTHER ==
--- OUTSIDE RECORDS SUMMARY | 2024-07-07 14:20 | XMS REPORT | Continuity of Care Document ---
Author Name Unknown Address [address] [facility] [place] [address] [facility] Address [address] [facility] [address] [place] [address] Care Team Providers Care Dietary Manager Name Role Phone No , Pcp Primary Care Physician Unavailab Maryanne Gao Attending Clinician Unavailable CURT REEVES Attending Clinician Unavailable JESUSITA SINGH Attending Clinician Unavail able TRED47 Attending Clinician Unavailable YUNG BRAGA Attending Clinician Unavailable LAB47 Attending Clinician Unavailable Ritesh Escobar MD Attending Clinician [phone] Sae Moreland MD Attending Clinician [phone] SAE MORELAND Attending Clinician Unavailab le Doctor Unassigned, [place] Attending Clinician U roxanne Gandhi MD, Nano Attending Clinician [phone] Lab, Ang - Db Attending Clinician Unavailable Pretty Wolff RN Attending Clinician Unavailab lauren Donohue MD, Abdirashid Mackay Attending Clinician [phone] ABDIRASHID DONOHUE Attending Clinician Unavailable MAXINE PRINCE Attending Clinician Unavailable Umair GALLO, Maxine Attending Clinician [phone] NADEEM WARREN Attending Clinician Unavailabl MATT Kate Attending Clinician Unavailable Briana GALLO, Nadeem Attending Clinician [phone] Kamila Quintero Attending Clinician + [phone] Derek PHD, Yarelis Mcnair Attending Clinician + [phone] YARELIS BILLINGS Attending Clinician Unavailab le Provider, [facility] Attending Clinician Unavailable Natasha Nolen Attending Clinician [phone] SUNNI MILLAN Attending Clinician Unavailable DEV CORADO Attending Clinician Unavailable Yeni Attending Clinician Unavailable Matt Martin PA-C Attending Clinician [phone] Jeannie Mims Attending Clinician +[phone] Sae Moreland MD Admitting Clinician [phone] SAE MORELAND Admitting Clinician Unavailab NADEEM Yoon Admitting Clinician Unavailabl lety Jaime Admitting Clinician Unavailable Payers Payer Name Policy Type Policy Number Effective Date Expirati on Date Source MEDICARE PART A \\T\\ B [id number] 2009 00:00:00 [employer] OPEN CHOICE PPO [id number] 2023 00:00:00 [employer] [place] 5 [id number] 2024 00:00:00 [employer] MEDICARE PPO 53 [id number] [facility] [place]IC[place]: [employer] [id number] 2009 00:00:00 [employer] (INDEMNITY) [id number] 2003 00:00:00 Problems Condition Name Condition Details Condition Category Status Onset Date Resolution Date Last Treatment Date Treating Clinician Comments Source Type 2 diabetes mellitus with stage 3a chronic kidney disease, without long-term current use of insulin (multi HCC) Type 2 diabetes mellitus with stage 3a chronic kidney disease, without long-term current use of insulin (multi HCC) Disease Active 04-16 00:00: 00 Mariah Alcala - [place] tabby Primary hypertensi on Primary hypertensi on Disease Active 04-16 00:00: 00 Mariah Alcala - [place] tabby Other hyperlipid emia Other hyperlipid emia Disease Active 04-16 00:00: 00 Mariah Hama tabby Age-relate d osteoporos is without current pathologic al fracture Age-relate d osteoporos is without current pathologic al fracture Disease Active 04-16 00:00: 00 Mariah Hama tabby Stage 3a chronic kidney disease Stage 3a chronic kidney disease Disease Active 04-16 00:00: 00 Mariah Alcala - [place] tabby Urinary incontinen ce Urinary incontinen ce Disease Active 04-16 00:00: 00 Mariah Hama l Statin intoleranc e Statin intoleranc e Disease Active 04-16 00:00: 00 Mariah Hama tabby Current severe episode of major depressive disorder without psychotic features (multi HCC) Current severe episode of major depressive disorder without psychotic features (multi HCC) Disease Active 04-16 00:00: 00 Mariah Hama tabby Sinus bradycardi a Sinus bradycardi a Disease Active 09-25 00:00: 00 [facility] NSVT (nonsustai archana ventricula r tachycardi a) NSVT (nonsustai archana ventricula r tachycardi a) Disease Active 09-25 00:00: 00 [facility] COVID-19 virus infection COVID-19 virus infection Disease Active 09-25 00:00: 00 [facility] Pneumonia due to infectious organism Pneumonia due to infectious organism Disease Active 09-25 00:00: 00 [facility] Hypoxia Hypoxia Disease Active 09-23 00:00: 00 [facility] Pure hyperchole sterolemia Pure hyperchole sterolemia Disease Active 2009-03 00:00: 00 [facility] Type II or unspecifie d type diabetes mellitus with peripheral nursing executive y disorders, uncontroll ed(250.72) Type II or unspecifie d type diabetes mellitus with peripheral nursing executive y disorders, uncontroll ed(250.72) Disease Active 06-13 00:00: 00 [facility] Dermatophy tosis of foot Dermatophy tosis of foot Disease Active 09-02 00:00: 00 [facility] HLD (hyperlipi demia) HLD (hyperlipi demia) Disease Active 06-03 00:00: 00 Overview: Formattin g of this note might be different from the original. 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[employer] [facility] Type II diabetes mellitus without complicati on Diabetes mellitus type 2, controlled , without complicati ons Problem Common [facility] High blood pressure High blood pressure Problem [facility] [id number] Viral illness Problem [facility] [id number] Arthritis Problem [facility] [id number] Grief Problem [facility] [id number] Uncontroll ed type 2 diabetes mellitus with hyperglyce esperanza Problem Common [facility] [id number] [address] current use of oral hypoglycem ic drug Problem [facility] [id number] Age-relate d osteoporos is with current pathologic al fracture with delayed healing, subsequent encounter Problem [facility] [id number] Rib pain Problem Commo n [facility] [id number] Rib injury Problem Com mon [facility] Allergies, Adverse Reactions, Alerts Allergy Name Allergy Type Status Severity Reaction(s) Onset Date Inactive Date Treating Clinician Comments Source Hmg-Coa- R Inhibito rs Propensi ty to adverse reaction s Active Myalgia 2-07 00:00: 00 Mariah Alcala - Externa l MILK DRUG INGREDI Active Med Diarrhea 8-10 00:00: 00 [facility] Milk Drug Intolera nce Active Diarrhea 8-10 00:00: 00 [facility] iodine DA Active SV 09-24 00:00: 00 [facility] tubercul in,PPD,m ulti-pun cture DA Active SV 09-24 00:00: 00 [facility] nickel DA Active SV 09-24 00:00: 00 [facility] latex DA Active MO 09-24 00:00: 00 [facility] iodine DA Active SV 09-16 00:00: 00 [facility] tubercul in,PPD,m ulti-pun cture DA Active SV 09-16 00:00: 00 [facility] nickel DA Active SV 09-16 00:00: 00 [facility] iodine DA Active MO 07-08 00:00: 00 [facility] nickel DA Active MO 07-08 00:00: 00 [facility] latex DA Active MO 5- 00:00: 00 [facility] Nickel Propensi ty to adverse reaction s Active 07-08 00:00: 00 Mariah Hama l Latex Propensi ty to adverse reaction s Active Rash 05-26 00:00: 00 Burning/p ain [facility] LATEX DRUG INGREDI Active High Rash 05-26 00:00: 00 [facility] iodine DA Active MO 2012-03 00:00: 00 [facility] niacin DA Active MO 2012-03 00:00: 00 [facility] latex DA Active MO 2012-03 00:00: 00 [facility] Latex Allergy to substanc e Active Rash 2012-03 00:00: 00 Other Reaction( s): Itching/H kyle/Rash Burning/p ain [facility] Iodine Propensi ty to adverse reaction s Active Anaphylaxis 2012-03 00:00: 00 Mariah Barrett l Latex Propensi ty to adverse reaction s Active Rash 2012-03 00:00: 00 Mariah mcnair Niacin, Antihype rlipidem ic Propensi ty to adverse reaction s Active 2012-03 00:00: 00 Mariah mcnair Niacin Allergy to substanc e Active 2012-03 00:00: 00 [facility] Iodine Propensi ty to adverse reaction s Active Anaphylaxis 06-03 00:00: 00 [facility] IODINE DRUG INGREDI Active Anaphylaxis 06-03 00:00: 00 [facility] Iodine Allergy to substanc e Active Anaphylaxis 06-03 00:00: 00 Other Reaction( s): shock [facility] 0 Drug allergy Active rash Common [facility] 463 Drug allergy Active shock Common [facility] Social History Social Habit Start Date Stop Date Quantity Comments Source History of tobacco use Cigarette Smoker Mariah eastman - External ASSERTION Possible Mariah Alcala - External Sexual orientation Freya Alcala - External Gender identity [facility] Alcoholic beverage intake 2024-04-20 00:00:00 2024-04-20 00:00:00 Current drinker of alcohol (finding) Mariah Cabreraybold - External History of Social function 2024-04-20 00:00:00 2024-04-20 00:00:00 Mariah carlos - External Tobacco Comment 2024-04-16 00:00:00 2024-04-16 00:00:00 Stopped smoking about 15 years ago Mariah Alcala - External Alcohol Comment 2024-04-16 00:00:00 2024-04-16 00:00:00 rarely Mariah Alcala - External Sex 2024-04-14 14:26:12 2024-04-14 14:26:12 Female (finding) Mariah Alcala - External Tobacco use and exposure 2024-04-13 00:00:00 2024-04-13 00:00:00 Smokeless tobacco non-user [facility] Exposure to SARS-CoV-2 (event) 2021-09-17 00:00:00 2021-09-27 14:14:00 Yes [facility] Alcohol intake 2021-09-27 00:00:00 2021-09-27 00:00:00 Current non-drinker of alcohol (finding) [facility] Sex assigned at 1945 00:00:00 1945 00[birth year]:00 Mariah Cabreramoyraiza Bartolome Hemphill Smoking Status Start Date Stop Date Source Ex-smoker 2024-04-16 00:00:00 2024-04-16 00:00:00 Freya orbles Semoyraiza - External [facility] smoked tobacco [facility] Medications Ordered Medication Name Filled Medication Name Start Date Stop Date Current Medication? Ordering Clinician Indication Dosage Frequency Signature (SIG) Comments Components Source Vibegron (GEMTESA OR) 04-20 16:00: 20 Yes Take by mouth. Mariah mcnair Ergocalcife rol 1.25 MG (49168 UT) oral Capsule 04-20 00:00: 00 Yes [id number] Q1W Take 1 capsule (50,000 units total) by mouth once a week. Mariah mcnair Vibegron (GEMTESA OR) 04-16 13:51: 26 Yes Take by mouth. Mariah mcnair Metformin HCl 500 MG oral Tablet 04-16 13:49: 31 04-16 00:00 :00 No TAKE 1 TABLET BY MOUTH TWICE A DAY WITH A MEAL FOR 90 DAYS for 90 Mariah mcnair Lisinopril 10 MG oral Tablet 04-16 13:49: 28 04-16 00:00 :00 No 1{tbl} QD Take 1 tablet (10 mg total) by mouth daily. Mariah mcnair Aspirin 81 MG oral Tablet Delayed Response 04-16 13:49: 22 04-16 00:00 :00 No 1{tbl} Take 1 tablet (81 mg total) by mouth every 24 hours. Mariah mcnair Alendronate Sodium 70 MG oral Tablet 04-16 13:49: 16 04-16 00:00 :00 No 1 tablet 30 minutes before the first food, beverage or medicine of the day with plain water Orally one a week for days Mariah mcnair Metoprolol Tartrate (LOPRESSOR) 50 MG oral Tablet 04-16 00:00: 00 Yes [id number] 50mg Q.5D Take 1 tablet (50 mg total) by mouth 2 times daily. Mariah mcnair oxyBUTYnin Chloride 5 MG oxyBUTYnin Chloride 5 MG 07-02 00:00: 00 No 1{table t} QD oxyBUTYnin Chloride 5 MG Furosemide 40 MG oral Tablet 07-02 00:00: 00 04-16 00:00 :00 No 1{tbl} 1 tablet (40 mg total) every 24 hours. Mariah mcnair oxyBUTYnin Chloride 5 MG oral Tablet 06-04 00:00: 00 04-16 00:00 :00 No 1{tbl} Take 1 tablet (5 mg total) by mouth every 24 hours. Mariah mcnair ondansetron (ZOFRAN (PF)) injection 4 mg 10-23 15:05: 37 Yes 4mg 4 mg, Slow IV Push, PRN, 1 dose, Starting on Fri10/23/22 at 1005, Until Discontinu ed, Routine, Nausea and Vomiting (N/V), PACU [facility] neomycin-po lymyxin-dex amethasone (MAXITROL) 3.5 mg/g-10,000 unit/g-0.1 % ophthalmic ointment 10-23 14:52: 00 10-23 14:57 :03 No PRN, Starting on Fri10/23/22 at 0952, Until Fri10/23/22 at 0957, Routine, [facility] sodium chloride (NS) injection 10-23 14:51: 00 10-23 14:57 :03 No PRN, Starting on Fri10/23/22 at 0951, Until Fri10/23/22 at 0957, Routine, [facility] dexamethaso ne (DECADRON PHOSPHATE) injection 10-23 14:51: 00 10-23 14:57 :03 No PRN, Starting on Fri10/23/22 at 0951, Until Fri10/23/22 at 0957, Routine, Intra-op [facility] ceFAZolin (ANCEF) injection 10-23 14:51: 00 10-23 14:57 :03 No PRN, Starting on Fri10/23/22 at 0951, Until Fri10/23/22 at 0957, KEY, Intra-op [facility] carbachoL (MIOSTAT) 0.01 % intraocular injection 10-23 14:50: 00 10-23 14:57 :03 No PRN, Starting on Fri10/23/22 at 0950, Until Fri10/23/22 at 0957, Routine, Intra-op [facility] EPINEPHrine 1:1,000 (1 mg/mL) (ADRENALIN) injection 10-23 14:40: 00 10-23 14:57 :03 No PRN, Starting on Fri10/23/22 at 0940, Until Fri10/23/22 at 0957, Routine, Intra-op [facility] balanced salt irrig soln comb1 (BSS PLUS) ophthalmic solution 500 mL bag 10-23 14:40: 00 10-23 14:57 :03 No PRN, Starting on Fri10/23/22 at 0940, Until Fri10/23/22 at 0957, Routine, Intra-op [facility] chondroitin sulf-sod hyaluronate (DUOVISC VISCO ELASTIC) intraocular injection 10-23 14:37: 00 10-23 14:57 :03 No PRN, Starting on Fri10/23/22 at 0937, Until Fri10/23/22 at 0957, Routine, Intra-op [facility] water for irrigation irrigation solution 10-23 14:33: 00 10-23 14:57 :03 No PRN, Starting on Fri10/23/22 at 0933, Until Fri10/23/22 at 0957, Routine, Intra-op [facility] Hyaluronida se, Human Recomb. (HYLENEX) injection 10-23 14:29: 00 10-23 14:57 :03 No PRN, Starting on Fri10/23/22 at 0929, Until Fri10/23/22 at 0957, Routine, Intra-op [facility] eye block syringe 11 mL 10-23 14:29: 00 10-23 14:57 :03 No PRN, Starting on Fri10/23/22 at 0929, Until Fri10/23/22 at 0957, Intra-op [facility] cyclopent 1%-tropic 1%-phenyl 2.5%-ketor 0.5% (MYDRIATIC #5) ophthalmic solution syringe 0.5 mL 10-23 12:45: 00 10-23 12:53 :00 No .5mL 0.5 mL, Right Eye, ONCE, 1 dose, On Fri10/23/22 at 0745, Routine, DSU Pre-op [facility] lactated ringers IV infusion 1,000 mL 10-23 12:45: 00 10-23 12:54 :00 No 1000mL at 42 mL/hr, 1,000 mL, IV Infusion, ONCE, 1 dose, On Fri10/23/22 at 0745, Routine, DSU Pre-op [facility] LISINOPRIL ORAL 2022-0 816 10:48: 16 Yes 10mg Take 10 mg by mouth in the morning. [facility] aspirin 81 mg EC tablet 2022-0 16 10:48: 16 Yes 81mg Take 1 tablet by mouth in the morning. [facility] LISINOPRIL ORAL 0 10-16 11:37: 32 Yes Take by mouth. [facility] METFORMIN 500 mg tablet 0 5 00:00: 00 10-28 04:59 :00 No [id number] 500mg TAKE 1 TABLET BY MOUTH IN THE MORNING FOR 90 DAYS. [facility] Lisinopril 10 MG Lisinopril 10 MG 2021-0 929 00:00: 00 No 1{table t} QD Lisinopril 10 MG Lisinopril 10 MG Lisinopril 10 MG 2021-0 929 00:00: 00 No 1{table t} QD Lisinopril 10 MG Lisinopril 10 MG Lisinopril 10 MG 2021-0 29 00:00: 00 No 1{table t} QD Lisinopril 10 MG lisinopriL 10 mg tablet 0 09-27 00:00: 00 12-27 04:59 :00 No [id number] 10mg Take 1 tablet by mouth at bedtime for 90 days. [facility] metFORMIN 500 mg tablet 0 09-27 00:00: 00 12-27 04:59 :00 No [id number] 500mg Take 1 tablet by mouth in the morning for 90 days. [facility] mirtazapine 7.5 mg tablet 0 09-27 00:00: 00 12-27 04:59 :00 No [id number] 7.5mg Take 1 tablet by mouth at bedtime for 90 days. [facility] Aspirin 81 81 MG Aspirin 81 81 MG No 1{table t} QD Aspirin 81 81 MG Aspirin 81 81 MG Aspirin 81 81 MG No 1{table t} QD Aspirin 81 81 MG Aspirin 81 81 MG Aspirin 81 81 MG No 1{table t} QD Aspirin 81 81 MG Pepcid 20 MG Pepcid 20 MG No 1{table t_at_be dtime} QD Pepcid 20 MG Alendronate Sodium 70 MG/75ML Alendronate Sodium 70 MG/75ML No Alendronat e Sodium 70 MG/75ML busPIRone HCl 5 MG busPIRone HCl 5 MG No 1{table t} BID busPIRone HCl 5 MG Zestoretic 20-12.5 MG Zestoretic 20-12.5 MG No 1{table t} QD Zestoretic 20-12.5 MG Tradjenta 5 MG Tradjenta 5 MG No Tradjenta 5 MG FreeStyle Lite Test - FreeStyle Lite Test - No FreeStyle Lite Test - Lisinopril- hydroCHLORO thiazide 20-12.5 MG Lisinopril- hydroCHLORO thiazide 20-12.5 MG No Lisinopril -hydroCHLO ROthiazide 20-12.5 MG Tradjenta 5 MG Tradjenta 5 MG No QD Tradjenta 5 MG Alendronate Sodium 70 MG/75ML Alendronate Sodium 70 MG/75ML No Alendronat e Sodium 70 MG/75ML Tradjenta 5 MG Tradjenta 5 MG No QD Tradjenta 5 MG Alendronate Sodium 70 MG/75ML Alendronate Sodium 70 MG/75ML No Alendronat e Sodium 70 MG/75ML Tradjenta 5 MG Tradjenta 5 MG No QD Tradjenta 5 MG Lisinopril 10 MG Lisinopril 10 MG No Lisinopril 10 MG Alendronate Sodium 70 MG/75ML Alendronate Sodium 70 MG/75ML No Alendronat e Sodium 70 MG/75ML Vital Signs Vital Name Observation Time Observation Value Comments S ource Systolic blood pressure 2024-04-20 21:53:00 142 mm[Hg] Mariah johnson - External Diastolic blood pressure 2024-04-20 21:53:00 76 mm[Hg] Mariah johnson - External Heart rate 2024-04-20 21:53:00 67 /min Samira Alcala - External Body temperature 2024-04-20 21:53:00 36.28 Cookie Mariah Cabreraybold - External Respiratory rate 2024-04-20 21:53:00 12 /min Mariah Cabreraybold - External Body height 2024-04-20 21:53:00 167.6 cm Cathy mesa Seybold - External Body weight 2024-04-20 21:53:00 68.493 kg Cathy ey Seybold - External BMI 2024-04-20 21:53:00 24.37 kg/m2 Cathy mesa Seybold - External Oxygen saturation in Arterial blood by Pulse oximetry 2024-04-20 21:53:00 100 /min Mariah Cabreraybo ld - External Systolic blood pressure 2024-04-16 19:44:00 146 mm[Hg] Mariah Cabreraybo ld - External Diastolic blood pressure 2024-04-16 19:44:00 96 mm[Hg] Mariah Cabreraybo ld - External Heart rate 2024-04-16 19:30:00 139 /min Samira y Seybold - External Body temperature 2024-04-16 19:30:00 36.89 Cookie Mariah Cabreraybold - External Respiratory rate 2024-04-16 19:30:00 14 /min Mariah Cabreraybold - External Body height 2024-04-16 19:30:00 167.6 cm Cathy mesa Seybold - External Body weight 2024-04-16 19:30:00 69.219 kg Cathy mesa Seybold - External BMI 2024-04-16 19:30:00 24.63 kg/m2 Cathy mesa Seybold - External Systolic blood pressure 2024-04-13 19:29:00 160 mm[Hg] [facility] Diastolic blood pressure 2024-04-13 19:29:00 80 mm[Hg] [facility] Body temperature 2024-04-13 19:29:00 36.56 Cookie [facility] Body height 2024-04-13 19:29:00 165.1 cm [facility] Body weight 2024-04-13 19:29:00 67.042 [facility] BMI 2024-04-13 19:29:00 24.60 kg[facility]m2 [facility] height 2023-07-03 15:20:00 64.5 [in_i] Comm on [facility] weight 2023-07-03 15:20:00 143.0 [lb_av] Co mmon [facility] temperature 2023-07-03 15:20:00 97.1 [degF] Com mon [facility] bmi 2023-07-03 15:20:00 24.16 kg/m2 Comm on [facility] oximetry 2023-07-03 15:20:00 98 % Commo n [facility] respiratory rate 2023-07-03 15:20:00 16 /min Common [facility] blood pressure systolic 2023-07-03 15:20:00 138 mm[Hg] Common [facility] blood pressure diastolic 2023-07-03 15:20:00 76 mm[Hg] Common [facility] height 2023-07-03 15:20:00 64.5 [in_i] Comm on [facility] weight 2023-07-03 15:20:00 143 [lb_av] Comm on [facility] temperature 2023-07-03 15:20:00 97.1 [degF] Com [facility] bmi 2023-07-03 15:20:00 24.16 kg/m2 Comm on [facility] oximetry 2023-07-03 15:20:00 98 % Commo n [facility] blood pressure systolic 2023-07-03 15:20:00 138 mm[Hg] Common [facility] blood pressure diastolic 2023-07-03 15:20:00 76 mm[Hg] Common [facility] height 2023-06-05 11:20:00 64.5 [in_i] Comm on [facility] weight 2023-06-05 11:20:00 143.4 [lb_av] Co mmon [facility] temperature 2023-06-05 11:20:00 97.3 [degF] Com mon [facility] bmi 2023-06-05 11:20:00 24.23 kg/m2 Comm on [facility] oximetry 2023-06-05 11:20:00 99 % Commo n [facility] respiratory rate 2023-06-05 11:20:00 16 /min Common [facility] blood pressure systolic 2023-06-05 11:20:00 137 mm[Hg] Common [facility] blood pressure diastolic 2023-06-05 11:20:00 70 mm[Hg] Common [facility] height 2023-02-05 11:40:00 64.5 [in_i] Comm on [facility] weight 2023-02-05 11:40:00 135 [lb_av] Comm on [facility] bmi 2023-02-05 11:40:00 22.81 kg/m2 Comm on [facility] height 2022-12-23 14:00:00 64.5 [in_i] Comm on [facility] weight 2022-12-23 14:00:00 134.6 [lb_av] Co mmon [facility] temperature 2022-12-23 14:00:00 97.6 [degF] Com mon [facility] bmi 2022-12-23 14:00:00 22.74 kg/m2 Comm on [facility] oximetry 2022-12-23 14:00:00 98 % Commo n [facility] respiratory rate 2022-12-23 14:00:00 16 /min [facility] blood pressure systolic 2022-12-23 14:00:00 135 mm[Hg] [facility] blood pressure diastolic 2022-12-23 14:00:00 88 mm[Hg] [facility] Systolic blood pressure 2022-10-23 15:20:00 133 mm[Hg] [facility] Diastolic blood pressure 2022-10-23 15:20:00 56 mm[Hg] [facility] Respiratory rate 2022-10-23 15:20:00 15 /min [facility] Oxygen saturation in Arterial blood by Pulse oximetry 2022-10-23 15:20:00 100 /min [facility] Heart rate 2022-10-23 15:10:00 84 /min [facility] Body temperature 2022-10-23 14:53:00 36.67 Cookie [facility] Body height 2022-10-17 22:00:00 166.4 cm [facility] Body weight 2022-10-17 22:00:00 59.875 kg [facility] BMI 2022-10-17 22:00:00 21.63 kg/m2 [facility] Systolic blood pressure 2022-10-23 12:49:00 168 mm[Hg] [facility] Diastolic blood pressure 2022-10-23 12:49:00 73 mm[Hg] [facility] Heart rate 2022-10-23 12:49:00 55 /min [facility] Body temperature 2022-10-23 12:49:00 36.72 Cookie [facility] Respiratory rate 2022-10-23 12:49:00 14 /min [facility] Oxygen saturation in Arterial blood by Pulse oximetry 2022-10-23 12:49:00 99 /min [facility] Body height 2022-10-17 22:00:00 166.4 cm [facility] Body weight 2022-10-17 22:00:00 59.875 kg [facility] BMI 2022-10-17 22:00:00 21.63 kg/m2 [facility] height 2022-08-12 15:20:00 64.5 [in_i] Comm on [facility] weight 2022-08-12 15:20:00 130.6 [lb_av] Co mmon [facility] temperature 2022-08-12 15:20:00 98.5 [degF] Com mon [facility] bmi 2022-08-12 15:20:00 22.07 kg/m2 Comm on [facility] oximetry 2022-08-12 15:20:00 98 % Commo n [facility] respiratory rate 2022-08-12 15:20:00 16 /min Common [facility] blood pressure systolic 2022-08-12 15:20:00 138 mm[Hg] Common [facility] blood pressure diastolic 2022-08-12 15:20:00 78 mm[Hg] Common [facility] height 2022-08-12 15:40:00 64.5 [in_i] Comm on [facility] weight 2022-08-12 15:40:00 130.6 [lb_av] Co mmon [facility] temperature 2022-08-12 15:40:00 98.5 [degF] Com [facility] bmi 2022-08-12 15:40:00 22.07 kg/m2 Comm on [facility] oximetry 2022-08-12 15:40:00 98 % Commo n [facility] respiratory rate 2022-08-12 15:40:00 16 /min Common [facility] blood pressure systolic 2022-08-12 15:40:00 138 mm[Hg] Common [facility] blood pressure diastolic 2022-08-12 15:40:00 78 mm[Hg] Common [facility] height 2022-05-24 09:40:00 64.5 [in_i] Comm on [facility] weight 2022-05-24 09:40:00 132.8 [lb_av] Co mmon [facility] temperature 2022-05-24 09:40:00 97.2 [degF] Com mon [facility] bmi 2022-05-24 09:40:00 22.44 kg/m2 Comm on [facility] oximetry 2022-05-24 09:40:00 100 % Commo n [facility] respiratory rate 2022-05-24 09:40:00 16 /min Common [facility] blood pressure systolic 2022-05-24 09:40:00 133 mm[Hg] [facility] diastolic 2022-05-24 09:40:00 83 mm[Hg] Common [facility] height 2022-03-28 10:40:00 64.5 [in_i] Comm on [facility] weight 2022-03-28 10:40:00 133 [lb_av] Comm on [facility] temperature 2022-03-28 10:40:00 97.6 [degF] Com mon [facility] bmi 2022-03-28 10:40:00 22.47 kg/m2 Comm on [facility] oximetry 2022-03-28 10:40:00 98 % Commo n [facility] respiratory rate 2022-03-28 10:40:00 16 /min [facility] blood pressure systolic 2022-03-28 10:40:00 140 mm[Hg] [facility] blood pressure diastolic 2022-03-28 10:40:00 82 mm[Hg] Common [facility] height 2021-12-26 09:40:00 65.0 [in_i] Comm on [facility] weight 2021-12-26 09:40:00 137.3 [lb_av] Co mmon [facility] temperature 2021-12-26 09:40:00 98.6 [degF] Com mon [facility] bmi 2021-12-26 09:40:00 22.85 kg/m2 Comm on [facility] oximetry 2021-12-26 09:40:00 100 % Commo n [facility] respiratory rate 2021-12-26 09:40:00 17 /min Common [facility] blood pressure systolic 2021-12-26 09:40:00 136 mm[Hg] Common [facility] blood pressure diastolic 2021-12-26 09:40:00 88 mm[Hg] Common [facility] height 2021-12-26 09:00:00 65.0 [in_i] Comm on [facility] weight 2021-12-26 09:00:00 137.3 [lb_av] Co mmon [facility] temperature 2021-12-26 09:00:00 98.6 [degF] Com mon [facility] bmi 2021-12-26 09:00:00 22.85 kg/m2 Comm on [facility] oximetry 2021-12-26 09:00:00 100 % Commo n [facility] respiratory rate 2021-12-26 09:00:00 17 /min [facility] blood pressure systolic 2021-12-26 09:00:00 179 mm[Hg] Common [facility] blood pressure diastolic 2021-12-26 09:00:00 84 mm[Hg] Common [facility] height 2021-12-06 13:20:00 65 [in_i] Commo n [facility] weight 2021-12-06 13:20:00 136 [lb_av] Comm on [facility] temperature 2021-12-06 13:20:00 96.3 [degF] Com mon [facility] bmi 2021-12-06 13:20:00 22.63 kg/m2 Comm on [facility] oximetry 2021-12-06 13:20:00 98 % Commo n [facility] respiratory rate 2021-12-06 13:20:00 18 /min Common [facility] blood pressure systolic 2021-12-06 13:20:00 150 mm[Hg] Common [facility] blood pressure diastolic 2021-12-06 13:20:00 82 mm[Hg] [facility] Procedures Procedure Date / Time Performed Performing Clinician Source POCT URINALYSIS DIPSTICK 2024-04-13 20:42:00 Shawn, [facility] PHACOEMULSIFICATION OF CATARACT WITH INTRAOCULAR LENS IMPLANT 2022-10-23 14:18:00 Sae Moreland [facility] POCT GLUCOSE (AUTOMATED) 2022-10-23 12:52:00 Sae Moreland [facility] POCT GLUCOSE (AUTOMATED) 2022-10-23 12:52:00 Sae Moreland [facility] ASSIGNMENT OF BENEFITS 2022-10-16 19:07:28 Doctor Unassigned, [place] [facility] URINE CULTURE 2021-10-10 15:19:00 Hiram [facility] THYROID STIMULATING HORMONE 2021-09-28 14:15:00 Hiram [facility] MICROALBUMIN URINE 2021-09-28 14:15:00 Hiram [facility] COMP. METABOLIC PANEL (75229) 2021-09-28 14:15:00 Hiram Nano [facility] LIPID PANEL (71270)(TOTAL CHOLESTEROL, TRIGLYCERIDES, HDL) 2021-09-28 14:15:00 Hiram [facility] GLYCOSYLATED HEMOGLOBIN (A1C) 2021-09-28 14:15:00 Hiram Nano [facility] URINALYSIS 2021-09-28 14:15:00 Hiram [facility] HCV ANTIBODY 2021-09-28 14:15:00 Hiram [facility] VITAMIN D, 25-OH 2021-09-28 14:15:00 Hiram [facility] Encounters Start Date/Time End Date/Time Encounter Type Admission Type Attending [facility] Care Facility Care Department Encounter ID Source 2023-07-03 16:55:00 Outpatient Maryanne Cooper [facility] [id number] [facility] 2023-04-24 07:40[facility]00 [facility] [id number] [facility] 2023-01-03 16:25:00 Outpatient Maryanne Cooper [facility] [id number] [facility] 2022-12-19 08:20:00 Outpatient Maryanne Cooper STLMLC STLMLC [id number] [facility] 2022-11-08 09:52:00 Outpatient Maryanne Cooper STLMLC STLMLC [id number] [facility] 2022-06-20 15:24:00 Outpatient Maryanne Cooper STLMLC STLMLC [id number] [facility] 2022-05-24 10:38:00 Outpatient Maryanne Cooper STLMLC STLMLC [id number] [facility] 2022-03-26 08:05:00 Outpatient Maryanne Cooper STLMLC STLMLC [id number] [facility] 2021-12-24 16:34:00 Outpatient Maryanne Cooper STLMLC STLMLC [id number] [facility] 2021-12-06 13:57:00 Outpatient Maryanne Cooper STLMLC STLMLC [id number] [facility] 2021-12-04 08:53:00 Outpatient Maryanne Cooper STLMLC STLMLC [id number] [facility] 2021 13:47:00 Outpatient Maryanne Cooper STLMLC STLMLC [id number] [facility] 2021-04-04 13:37:37 Outpatient Maryanne Cooper STLMLC STLMLC [id number] [facility] 2021-01-08 08:52:09 Emergency [facility] [id number] [facility] 2024-05-25 13:20:00 2024-05-25 13:20:00 Outpatient CURT REEVES [facility] [id number] [facility] 2024-05-09 00:00:00 2024-05-09 00:00:00 Outpatient JESUSITA SINGH [id number] Mariah [facility] 2024-04-20 16:45:00 2024-04-20 16:45:00 Outpatient TREAlexandr GARCIA [id number] [facility] 2024-04-20 16:30:00 2024-04-20 16:30:00 Outpatient YUNG BRAGASEY [id number] [facility] 2024-04-20 00:00:00 2024-04-20 00:00:00 Outpatient FRANCISCO JESUSITA GARCIA MARIAH [id number] Mariah [facility] 2024-04-16 16:45:00 2024-04-16 16:45:00 Outpatient JAVIER PRITCHETTSEY [id number] Mariah [facility] 2024-04-16 14:45:00 2024-04-16 14:45:00 Outpatient DEEAlexandr PRITCHETTSEY [id number] [facility] 2024-04-16 14:00:00 2024-04-16 14:00:00 Outpatient CALUDE SINGHIE MARIAH GARCIA [id number] [facility] 2024-04-13 13:40:00 2024-04-13 14:24:17 Office Visit Ritesh Escobar [facility] 1.2.840.114 [id number] [facility] 2023-07-10 00:00:00 2023-07-10 00:00:00 (TEL) STLMLC STLC [id number] [facility] 2023-07-03 00:00:00 2023-07-03 00:00:00 OFFICE VISIT ESTAB PT LEVEL 4 STLMLC STLMLC [id number] [facility] 2023-07-03 00:00:00 2023-07-03 00:00:00 [facility] STLMLC STLMLC [id number] [facility] 2023-06-05 00:00:00 2023-06-05 00:00:00 OFFICE VISIT ESTAB PT LEVEL 3 STLMLC STLC [id number] [facility] 2023-04-28 00:00:00 2023-04-28 00:00:00 (TEL) STLMLC STLMLC [id number] [facility] 2023-02-07 00:00:00 2023-02-07 00:00:00 (TEL) STLMLC STLMLC [id number] [facility] 2023-02-05 00:00:00 2023-02-05 00:00:00 (TEL) STLMLC STLMLC [id number] [facility] 2023-02-05 00:00:00 2023-02-05 00:00:00 OFFICE VISIT ESTAB PT LEVEL 3 STLMLC STLMLC [id number] [facility] 2023-01-06 00:00:00 2023-01-06 00:00:00 (TEL) STLMLC STLMLC [id number] [facility] 2022-12-23 00:00:00 2022-12-23 00:00:00 OFFICE VISIT ESTAB PT LEVEL 3 STLMLC STLMLC [id number] [facility] 2022-10-23 07:36:00 2022-10-23 10:36:00 Hospital Encounter Sae Moreland [facility] 1.2.840.114 350.1.13.10 4.2.7.2.686 [id number] [facility] 2022-10-23 07:36:00 2022-10-23 10:36:00 Outpatient R [facility] [id number] [facility] 2022-10-23 08:56:00 2022-10-23 09:31:00 Surgery Sae Moreland [facility] 1.2.840.114 350.1.13.10 4.2.7.2.686 [id number] [facility] 2022-10-16 00:00:00 2022-10-16 00:00:00 Orders Only Doctor Unassigned, [place] [facility] 1.2.840.114 350.1.13.10 4.2.7.2.686 [id number] [facility] 2022-08-14 00:00:00 2022-08-14 00:00:00 (TEL) STLMLC STLMLC [id number] [facility] 2022-08-12 00:00:00 2022-08-12 00:00:00 OFFICE VISIT ESTAB PT LEVEL 3 STLMLC STLMLC [id number] [facility] 2022-08-12 00:00:00 2022-08-12 00:00:00 SUB ANNUAL MCR WELLNESS VISIT STLMLC STLMLC [id number] [facility] 2022-07-28 00:00:00 2022-07-28 00:00:00 Brittny Gandhi [facility] 1.2.840.114 350.1.13.10 4.2.7.2.686 [id number] [facility] 2022-05-24 00:00:00 2022-05-24 00:00:00 OFFICE VISIT ESTAB PT LEVEL 3 STLMLC STLMLC [id number] [facility] 2022-03-28 00:00:00 2022-03-28 00:00:00 OFFICE VISIT NEW PT LEVEL 4 STLMLC STLMLC [id number] [facility] 2022-02-15 00:00:00 2022-02-15 00:00:00 (TEL) STLMLC STLMLC [id number] [facility] 2021-12-26 00:00:00 2021-12-26 00:00:00 OFFICE VISIT EST PT LEVEL 3 STLMLC STLMLC [id number] [facility] 2021-12-26 00:00:00 2021-12-26 00:00:00 SUB ANNUAL MCR WELLNESS VISIT STLMLC STLMLC [id number] [facility] 2021-12-20 13:15:00 2021-12-20 13:15:00 Ambulatory Pre-Reg nullFlavo r [facility] [place] [id number] Kassidy Melo 2021-12-06 00:00:00 2021-12-06 00:00:00 OFFICE VISIT NEW PT LEVEL 4 STLMLC STLMLC [id number] [facility] 2021-10-10 10:00:00 2021-10-10 10:17:14 Rn Postpartum Visit Lab, Henrry Gandhi [facility] MANASA?[facility] 1..840.114 350.1.13.10 4.2.7.2.686 [id number] [facility] 2021-10-10 10:00:00 2021-10-10 10:00:00 Outpatient Isaac GANDHI [facility] [id number] [facility] 2021-10-09 00:00:00 2021-10-09 00:00:00 [facility] 1..840.114 350.1.13.10 4.2.7.2.686 [id number] [facility] 2021-09-28 09:00:00 2021-09-28 09:46:20 Rn Postpartum Visit Lab, [facility] 1..840.114 350.1.13.10 4.2.7.2.686 [id number] [facility] 2021-09-28 09:00:00 2021-09-28 09:15:00 Rn Postpartum Visit Lab, Henrry Gandhi [facility] 1..840.114 350.1.13.10 4.2.7.2.686 [id number] [facility] 2021-09-28 09:00:00 2021-09-28 09:00:00 [facility] [id number] 2021-09-28 09:00:00 2021-09-28 09:00:00 [facility] [id number] [facility] 2021-09-27 14:00:00 2021-09-27 15:18:08 Outpatient R HIRAM [facility] [id number] [facility] 2021-09-27 14:00:00 2021-09-27 15:18:08 Office Visit Hiram [facility] MANASA?[facility] 1.2.840.114 350.1.13.10 4.2.7.2.686 [id number] [facility] 2021-09-27 14:00:00 2021-09-27 15:18:08 [facility] [id number] [facility] 2021-09-27 00:00:00 2021-09-27 00:00:00 Abstract [facility] 1.2.840.114 350.1.13.10 4.2.7.2.686 [id number] [facility] 2021-09-25 14:00:00 2021-09-25 14:00:00 Outpatient [facility] [id number] [facility] 2021-09-25 14:00:00 2021-09-25 14:00:00 Outpatient R HIRAM [facility] [id number] [facility] 2021-09-25 14:00:00 2021-09-25 14:00:00 Outpatient R HIRAM [facility] [id number] [facility] 2021-09-25 00:00:00 2021-09-25 00:00:00 Letter (Out) Pretty Wolff [facility] 1.2.840.114 350.1.13.10 4.2.7.2.686 [id number] [facility] 2021-09-24 14:04:00 2021-09-24 16:04:00 Emergency Abdirashid Donohue S [facility] 1.2.840.114 350.1.13.10 4.2.7.2.686 [id number] [facility] 2021-09-24 14:04:00 2021-09-24 16:04:00 Emergency X LEANNE DONOHUEMARIA [facility] [id number] [facility] 2021-09-24 14:04:00 2021-09-24 14:04:00 Emergency X ABDIRASHID DONOHUE [facility] ERT [id number] [facility] 2021-09-24 12:00:00 2021-09-24 12:27:00 Outpatient MAXINE MEYERS [facility] [id number] [facility] 2021-09-24 12:00:00 2021-09-24 12:27:00 Urgent Care [facility] 1.2.840.114 350.1.13.10 4.2.7.2.686 [id number] [facility] 2021-09-24 12:00:00 2021-09-24 12:27:00 Outpatient MAXINE MEYERS [facility] [id number] [facility] 2021-09-24 12:00:00 2021-09-24 12:27:00 Outpatient MAXINE MEYERS [facility] [id number] [facility] 2021-09-24 12:00:00 2021-09-24 12:27:00 Outpatient MAXINE MEYERS [facility] [id number] [facility] 2021-09-24 12:00:00 2021-09-24 12:27:00 Outpatient MAXINE MEYERS [facility] [id number] [facility] 2021-09-24 12:00:00 2021-09-24 12:27:00 Outpatient R MAXINE PRINCE [facility] [id number] [facility] 2021-09-24 12:00:00 2021-09-24 12:27:00 Outpatient R MAXINE PRINCE [facility] [id number] [facility] 2021-09-24 12:00:00 2021-09-24 12:27:00 Outpatient R MAXINE PRINCE [facility] [id number] [facility] 2021-09-24 12:00:00 2021-09-24 12:27:00 Outpatient R UMAIRMAXINE [facility] [id number] [facility] 2021-09-24 12:00:00 2021-09-24 12:27:00 Outpatient R UMAIRMAXINE [facility] [id number] [facility] 2021-06-11 11:15:00 2021-06-11 11:15:00 Outpatient R NADEEM WARREN [facility] [id number] [facility] 2021-04-23 11:15:00 2021-04-23 11:15:00 Outpatient R NADEEM WARREN [facility] [id number] [facility] 2021-04-19 11:00:00 2021-04-19 11:00:00 Outpatient R MATT MARTIN [facility] [id number] [facility] 2021-03-29 11:00:00 2021-03-29 11:00:00 Outpatient R MATT MARTIN [facility] [id number] [facility] 2021-03-28 14:26:37 2021-03-28 23:59:00 Outpatient R NADEEM WARREN [facility] [id number] [facility] 2021-03-28 14:26:37 2021-03-28 23:59:00 Hospital Encounter Nadeem Warren [facility] 1.2.840.114 350.1.13.10 4.2.7.2.686 [id number] [facility] 2021-03-14 10:45:00 2021-03-14 11:00:00 Office Visit Nadeem Warren [facility] 1.2.840.114 350.1.13.10 4.2.7.2.686 [id number] [facility] 2021-03-14 10:45:00 2021-03-14 10:45:00 Outpatient R NADEEM WARREN [facility] [id number] [facility] 2021-03-14 09:45:00 2021-03-14 10:30:00 Ancillary Visit Kamila Helton Deborah L [facility] 1.2840.114 350.1.13.10 4.2.7.2.686 [id number] [facility] 2021-03-14 09:45:00 2021-03-14 09:45:00 Outpatient YARELIS MARTIN [facility] [id number] [facility] 2021-03-14 09:45:00 2021-03-14 09:45:00 [facility] [id number] [facility] 2021-03-14 00:00:00 2021-03-14 00:00:00 Orders Only Doctor Unassigned, [place] [facility] 1.2840.114 350.1.13.10 4.2.7.2.686 [id number] [facility] 2021-02-15 16:15:00 2021-02-15 16:15:00 Outpatient MATT DENNEY [facility] [id number] [facility] 2021-02-15 16:15:00 2021-02-15 16:15:00 Outpatient MATT DENNEY [facility] [id number] [facility] 2021-01-04 15:00:00 2021-01-04 15:00:00 Outpatient Isaac MATT MARTIN [facility] [id number] [facility] 2021-01-04 15:00:00 2021-01-04 15:00:00 Outpatient Isaac MATT MARTIN [facility] [id number] [facility] 2020-11-19 16:36:36 2020-11-19 16:56:36 Urgent Care Provider, [facility] 1..840.114 350.1.13.10 4.2.7.2.686 [id number] [facility] 2020-11-19 16:40:00 2020-11-19 16:40:00 Outpatient [facility] [id number] [facility] 2020-10-19 13:00:00 2020-10-19 13:00:00 Outpatient SUNNI SOLO [facility] [id number] [facility] 2020-10-19 13:00:00 2020-10-19 13:00:00 Outpatient SUNNI SOLO [facility] [id number] [facility] 2020-09-23 08:00:00 2020-09-23 08:00:00 Outpatient DEV MCDONALD [facility] [id number] [facility] 2020-09-23 08:00:00 2020-09-23 08:00:00 Outpatient DEV MCDONALD [facility] [id number] [facility] 2020-08-01 12:42:00 2020-08-01 12:42:00 Outpatient Yeni [facility] [id number] [facility] 2020-06-28 13:40:14 2020-06-28 14:10:14 Office Visit Matt Martin [facility] 1..840.114 350.1.13.10 4.2.7.2.686 [id number] 2020-06-28 13:45:00 2020-06-28 13:45:00 Outpatient MATT DENNEY [facility] [id number] [facility] 2020-06-28 10:15:00 2020-06-28 10:15:00 Outpatient MATT DENNEY [facility] [id number] [facility] 2020-06-23 14:28:32 2020-06-23 15:13:32 Ancillary Visit Jeannie Velasco [facility] 1.2.840.114 350.1.13.10 4.2.7.2.686 [id number] 2020-06-23 14:30:00 2020-06-23 14:30:00 Outpatient MATT DENNEY [facility] [id number] [facility] Results Test Description Test Time Test Comments Results Result Co mments Source [facility] RATIO, RANDOM [id number] 00:00:00* Test Item Value Reference Range Interpretation Comme nts ALBUMIN, URINE, RANDOM (test code = 76546-5) 0.4 MG/DL NOT ESTAB MG/DL CALC ALBUMIN/CREAT, RND (test code = 41692-7) 2 MG/G See_Comment [Automated [employer]] The system which generated this result transmitted reference range: <30 MG/G. The reference range was not used to interpret this result as normal/abnormal. CREATININE, URINE, CONC. (test code = 2161-8) 166.9 MG/DL NOT ESTAB MG/DL POCT GLUCOSE (AUTOMATED)2022-10-23 12:55:29* Test Item Value Reference Range Interpretation Comme nts POCT GLU (test code = 1279946556) 86 mg/dL 70-110 Lab Interpretation (test cod e = 52596-0) [facility] 12:55:29* Test Item Value Reference Range Interpretation Comme nts POCT GLU (test code = 5480938173) 86 mg/dL 70-110 Lab Interpretation (test cod e = 74237-1) Normal [facility] [id number] 22:13:17* Test Item Value Reference Range Interpretation Comme [facility] HCV Ab (test code = 86429-6) Negative HCV Semi-Quantitative (test code = 59229-7) [facility] (A1C)2021-09-28 21:54:30* Test Item Value Reference Range Interpretation Comme [facility] HGB A1C (test code = 4548-4) 6.6 % 4-5.7 H YAHAIRA (test code = YAHAIRA) Reference RangesNormal: <5.7%Prediabetes: 5.7 - 6.4%Diabetes: > 6.5% Lab Interpretation (test code = 48003-5) [facility]normal [facility], [id number] 21:50:12* Test Item Value Reference Range Interpretation Comme [facility] VIT D 25OH (test code = 89995-9) 46 ng/mL 25-80 YAHAIRA (test code = YAHAIRA) Deficiency: <20 ng/mLInsufficiency : 20-24 ng/mLOptimal: 25-80 ng/mL Lab Interpretation (test code = 97955-5) [facility] [facility] [id number] 21:08:47 * Test Item Value Reference Range Interpretation Comme [facility] TSH (test code = 0935893164) See_Comment [Automated [employer]] The system which generated this result transmitted reference range: 0.45 - 4.70 mIU/L. The reference range was not used to interpret this result as normal/abnormal. Lab Interpretation (test code = 92260-5) Normal [facility] METABOLIC PANEL (51549)2021-09-28 20:52:03* Test Item Value Reference Range Interpretation Comme nts NA (test code = 2503177213) 142 mmol/L 135-145 K (test code = 8717561173) 3.9 mmol/L 3.5-5 CL (test code = 1121048579) 105 mmol/L 98-108 CO2 TOTAL (test code = 3220796415) 31 mmol/L 23-31 AGAP (test code = 4275385569) 2-16 BUN (test code = 6880056457) 14 mg/dL 7-23 GLUCOSE (test code = 0608208113) 98 mg/dL 70-110 CREATININE (test code = 0903520125) 0.84 mg/dL 0.5-1.04 TOTAL BILI (test code = 0916292558) 0.3 mg/dL 0.1-1.1 CALCIUM (test code = 5746812420) 8.5 mg/dL 8.6-10.6 L T PROTEIN (test code = 7064980566) 5.7 g/dL 6.3-8.2 L ALBUMIN (test code = 3543599960) 3.5 g/dL 3.5-5 ALK PHOS (test code = 8516713836) 68 U/L 34-122 ALTv (test code = 1742-6) 15 U/L 5-35 AST(SGOT) (test code = 1647633450) 26 U/L 13-40 eGFR (test code = 3396663217) mL/min/1.73m2 YAHAIRA (test code = YAHAIRA) Association of [...] or abnormalities in imaging tests). Lab Interpretation (test code = 29884-5) Abnormal [facility]ville[facility] (59023)(TOTAL CHOLESTEROL, TRIGLYCERIDES, HDL)2021-09-28 20:52:03* Test Item Value Reference Range Interpretation Comme nts CHOL (test code = 5483339925) 176 mg/dL 120-200 HDL (test code = 2455454774) 45 mg/dL See_Comment L [Automated [employer]] The system which generated this result transmitted reference range: >=50. The reference range was not used to interpret this result as normal/abnormal. HDLC RATIO (test code = 4314799733) See_Comment [Automated [employer]] The system which generated this result transmitted reference range: <=4.5. The reference range was not used to interpret this result as normal/abnormal. TRIG (test code = 4253287779) 81 mg/dL 30-170 LDL CHOL (test code = 81426-8) 115 mg/dL See_Comment [Automated [employer]] The system which generated this result transmitted reference range: <=160. The reference range was not used to interpret this result as normal/abnormal. VLDL (test code = 6845343895) 16 mg/dL 5-60 Lab Interpretation (test code = 63067-9) Abnormal [facility]villeGLUBED2019-07-19 17:21:00* Test Item Value Reference Range Interpretation Comme nts GLUBED (test code = GLUBED) 192 mg/dL 60-125 H [id number] 12:43:00* Test Item Value Reference Range Interpretation Comme nts GLUBED (test code = GLUBED) 138 mg/dL 60-125 H BASIC METABOLIC [id number] 07:12:00* Test Item Value Reference Range Interpretation Comme nts SODIUM (test code = NA) 140 mEq/L 135-145 POTASSIUM (test code = K) 4.8 mEq/L 3.5-5.0 CHLORIDE (test code = CL) 106 mEq/L 100-115 CARBON DIOXIDE (test code = CO2) 27 mEq/L 22-31 GLUCOSE (test code = GLU) 168 mg/dL 65-110 H BLOOD UREA NITROGEN (test code = BUN) 25 mg/dL 7-18 H GLOMERULAR FILTRATION RATE (test code = GFR) 54.3 >60 Unit of m easure: mL/min/1.73 e5Vplzfpipi Range:Healthy Adults >90 mL/min/1.73 m2 For Chronic Kidney Disease: Stage II Mild Decrease in GFR 60-90 Stage III Moderate Decrease in GFR 30-59 Stage IV Severe Decrease in GFR 15-29 Stage V Kidney Failure <15Unit of measure: mL/min/1.73 a2Odgwqzlsx Range:Healthy Adults >90 mL/min/1.73 m2 For Chronic Kidney Disease: Stage II Mild Decrease in GFR 60-90 Stage III Moderate Decrease in GFR 30-59 Stage IV Severe Decrease in GFR 15-29 Stage V Kidney Failure <15 CREATININE (test code = CREAT) 1.0 mg/dL 0.5-1.0 CALCIUM (test code = CA) 7.4 mg/dL 8.4-10.2 L BASIC METABOLIC [id number] 07:11:00* Test Item Value Reference Range Interpretation Comme nts SODIUM (test code = NA) 140 mEq/L 135-145 N POTASSIUM (test code = K) 4.8 mEq/L 3.5-5.0 N CHLORIDE (test code = CL) 106 mEq/L 100-115 N CARBON DIOXIDE (test code = CO2) 27 mEq/L 22-31 N GLUCOSE (test code = GLU) 168 mg/dL 65-110 H BLOOD UREA NITROGEN (test co de = BUN) 25 mg/dL 7-18 H GLOMERULAR FILTRATION RATE ( test code = GFR) 54 ml/min >60 L CREATININE (test code = CREAT) 1.0 mg/dL 0.5-1.0 N CALCIUM (test code = CA) 7.4 mg/dL 8.4-10.2 L HGB [id number] 05:48:00* Test Item Value Reference Range Interpretation Comme nts HEMOGLOBIN (test code = HGB) 9.2 g/dL 12-16 L HEMATOCRIT (test code = HCT) 27.3 % 37-47 L [id number] 05:27:00* Test Item Value Reference Range Interpretation Comme nts GLUBED (test code = GLUBED) 150 mg/dL 60-125 H [id number] 20:15:00* Test Item Value Reference Range Interpretation Comme nts GLUBED (test code = GLUBED) 152 mg/dL 60-125 H [id number] 16:53:00* Test Item Value Reference Range Interpretation Comme nts GLUBED (test code = GLUBED) 170 mg/dL 60-125 H - XR PELVIS 1/2 [id number] 16:35:00Patient Name: KATHIE HUNTER Unit No: [id number] EXAMS: CPT CODE: [id number] XR PELVIS 1/2 VIEWS 51615 INTRAOPERATIVE LEG LENGTH FILM COMMENT: COMPARISON: No prior exams available. In progress right hip replacement is noted. AP PORTABLE RIGHT HIP COMMENT: The patient is status post joint replacement which is articulating normally. Electronically Signed by Jake Shahid MD on09/24/2018 at 1635 Reported and signed by: Jake Shahid MD CC: Akin Ragsdale Technologist: Isaac MANRIQUEZ (RT.R) Transcribed D/ (4287) [facility] NAME: KATHIE HUNTER [address] [facility] PHYS: Akin Kay : 1945 AGE: 72 SEX: F [place] [address] LOC: Y.522 A PHONE #: [phone] EXAM DATE: 09/24/2018 STATUS: ADM IN FAX #: [phone] RAD #: D/C DT PAGE 1 Signed Report Patient Name: KATHIE HUNTER Unit No: [id number] EXAMS: CPT CODE: [id number] XR PELVIS 1/2 VIEWS 59358 (Continued) Orig Print D/T: S: 09/24/2018 (1638) [facility] NAME: KATHIE HUNTER [address] [facility] PHYS: Akin Kay Juan Mcleod : 1945 AGE: 72 SEX: F [place], [place] [address] LOC: Y.522 A PHONE #: [phone] EXAM DATE: 09/24/2018 STATUS: ADM IN FAX #: [phone] RAD #: D/C DT PAGE 2 Signed Report- XR PELVIS 1/2 [id number] 16:35:00Patient Name: KATHIE HUNTER Unit No: [id number] EXAMS: CPT CODE: [id number] XR PELVIS 1/2VIEWS 33690 INTRAOPERATIVE LEG LENGTH FILM COMMENT: COMPARISON: No prior exams available. In progress right hip replacement is noted. AP PORTABLE RIGHT HIP COMMENT: The patient is status post joint replacement which is articulating normally. at 1635 Reported and signed by: Jake Shahid MD CC: Akin Ragsdale Technologist: DESTINY ESTES RT(R) Transcribed D/ (2962) [facility] NAME: AKTHIE HUNTER [address] [facility] PHYS: [place]AR[place] - Melyssa,Akinserene Mcleod : 1945 AGE: 72 SEX: F [place] [address] LOC: Y.522 A PHONE #: [phone] EXAM DATE: 09/24/2018 STATUS: ADM IN FAX #: [phone] RAD #: D/C DT PAGE 1 Signed Report Patient Name: KATHIE HUNTER Unit No: [id number] EXAMS: CPT CODE: [id number] XR PELVIS 1/2 VIEWS 10087 (Continued) Orig Print D/T: S: 09/24/2018 (4868) [facility] NAME: KATHIE HUNTER [address] PHYS: Akin Kay M : 1945 AGE: 72 SEX: F [place], [place] [address] LOC: Y.522 A PHONE #: [phone] EXAM DATE: 09/24/2018 STATUS: ADM IN FAX #:[phone] RAD #: D/C DT PAGE 2 Signed Report [id number] 08:12:00* Test Item Value Reference Range Interpretation Comme nts GLUBED (test code = GLUBED) 85 mg/dL 60-125 N AB HIV 1 [id number] 21:46:00* Test Item Value Reference Range Interpretation Comme nts AB HIV 1 2 (test code = YWM66NA) NONREACTIVE NONREACTIVE Done by [employer] HIV Ag/Ab Combo Screen AB HIV 21:46:00* Test Item Value Reference Range Interpretation Comme nts AB HIV 1 (test code = HIV1AB) NONREACTIVE NONREACTIVE DONE AT: [address] [address] by [employer] 4[employer] HIV Ag/Ab Combo Screen PROTHROMBIN [id number] 19:20:00* Test Item Value Reference Range Interpretation Comme nts PROTHROMBIN TIME PATIENT (test code = PTP) 10.8 secs 10.1-12.5 N INTERNATIONAL NORMAL RATIO (test code = INR) 0.96 <2.0 RECOMMENDED THER APEUTIC RANGE FOR ORAL ANTICOAGULANTTREATMENT: CONDITION INRProphylaxis of venous thrombosis in 2.0 - 3.0 high-risk medical or surgical patientsTreatment of venous thrombosis 2.0 - 3.0Prevention of embolism 2.0 - 3.0Prevention of recurrent embolism, or 3.0 - 4.5 patients with mechanical prosthetic intravascular valves IS PATIENT ON ANTICOAGULANTS ? YLIST ANTICOAGULANT/ANTI PLT MEDICATION : AspirinHas Lab been notified if Patient is on Heparin Drip? NOIf Yes, order CBC, OCCULT BLOOD, PT every other day NTHROMBOPLASTIN TIME [id number] 19:20:00 * Test Item Value Reference Range Interpretation Comme nts PTT ACTIVATED (test code = APTT) 29.9 secs 24.9-37.0 N IS PATIENT ON ANTICOAGULANTS ? YLIST ANTICOAGULANT/ANTI PLT MEDICATION : AspirinHas Lab been notified if Patient is on Heparin Drip? NOIf Yes, order CBC, OCCULT BLOOD, PT every other day NCOMPREHENSIVE METABOLIC [id number] 19:17:00* Test Item Value Reference Range Interpretation Comme nts SODIUM (test code = NA) 142 mmol/L 136-145 N POTASSIUM (test code = K) 3.7 mmol/L 3.5-5.1 N CHLORIDE (test code = CL) 102.0 mmol/L 98-107 N CARBON DIOXIDE (test code = CO2) 29.2 mmol/L 21-32 N GLUCOSE (test code = GLU) 87 mg/dL 70-110 N BLOOD UREA NITROGEN (test code = BUN) 22 mg/dL 7-18 H GLOMERULAR FILTRATION RATE (test code = GFR) 52.5 >60 Unit of m easure: mL/min/1.73 u6Aayldizwd Range:Healthy Adults >90 mL/min/1.73 m2 For Chronic Kidney Disease: Stage II Mild Decrease in GFR 60-90 Stage III Moderate Decrease in GFR 30-59 Stage IV Severe Decrease in GFR 15-29 Stage V Kidney Failure <15 CREATININE (test code = CREAT) 1.03 mg/dL 0.55-1.30 N TOTAL PROTEIN (test code = PROT) 6.8 g/dL 6.4-8.2 N ALBUMIN (test code = ALB) 3.9 g/dL 3.4-5.0 N GLOBULIN (test code = GLOB) 2.9 g/dL 2.2-4.2 N ALBUMIN/GLOBULIN RATIO (test code = A/G) 1.3 0.7-2.0 N CALCIUM (test code = CA) 8.9 mg/dL 8.2-10.1 N BILIRUBIN TOTAL (test code = BILT) 0.27 mg/dL 0.2-1.00 N SGOT/AST (test code = AST) 21.0 U/L 15-37 N SGPT/ALT (test code = ALT) 23.0 U/L 12-78 N Please note new normal range. ALKALINE PHOSPHATASE TOTAL (test code = ALKP) 91 U/L 46-116 N URINALYSIS [id number] 19:02:00* Test Item Value Reference Range Interpretation Comme nts UA COLOR (test code = COLU) YELLOW YELLOW UA APPEARANCE (test code = APPU) CLEAR CLEAR UA GLUCOSE DIPSTICK (test co de = DGLUU) NEGATIVE NEGATIVE UA BILIRUBIN DIPSTICK (test code = BILU) NEGATIVE NEGATIVE UA KETONE DIPSTICK (test cod e = KETU) NEGATIVE mg/dL NEG UA SPECIFIC GRAVITY (test co de = SGU) 1.010 1.003-1.035 UA BLOOD DIPSTICK (test code = AXVI) NEGATIVE NEGATIVE UA PH DIPSTICK (test code = CLAUDIO) 6.5 >6.5 UA PROTEIN DIPSTICK (test co de = PROU) NEGATIVE mg/dL NEG UA UROBILINIOGEN DIPSTICK (test code = URO) 0.2 mg/dL NORM UA NITRITE DIPSTICK (test co de = JAMIN) NEGATIVE NEG UA LEUKOCYTE ESTERASE DIPSTI CK (test code = LEUU) TRACE NEGATIVE A UA WBC (test code = WBCU) <5 /HPF 0-2 UA RBC (test code = RBCU) 0-2 /HPF 0-2 UA EPITHELIAL CELLS (test co de = EPIU) FEW /HPF 0-2 UA BACTERIA (test code = BACU) FEW /HPF NONE CBC W/AUTO [id number] 18:55:00* Test Item Value Reference Range Interpretation Comme nts WHITE BLOOD CELL (test code = WBC) [...] 27-34 N MEAN CELL HGB CONCENTRATION (test code = MCHC) 33.0 g/dL 30.8-34.1 N RED CELL DISTRIBUTION WIDTH (test code = RDW) 13.5 % 11-16 N PLT (test code = PLT) 187 K/mm3 130-400 N MEAN PLATELET VOLUME (test c ode = MPV) 11.5 fL 8.9-12.1 N NEUTROPHIL % (test code = NT%) 59.3 [...] K/mm3 0.02-0.10 N MANUAL DIFF REQUIRED (test c ode = MDIFF) NO MANUAL DIFF NUCLEATED RED BLOOD CELL (te st code = NRBC) 0 % 0-0 N GLYCOSYLATED HEMOGLOBIN (HA1C)2018-07-08 20:05:00* Test Item Value Reference Range Interpretation Comme nts GLYCOSYLATED HEMOGLOBIN (HA1C) (test code = GLYHGB) 6.5 % 4.8-5.9 H Any conditi on that shortens erythocyte survival or decreasesmean erythrocyte age (e.g., recovery from acute blood loss,hemolytic anemai) will falsely lower HGBA1c resultsregardless of the method used. HGBA1c results frompatients with HbSS, HbCC and HbSc must be interpreted withcaution given the pathological processes, including anemia,increased red cell turnover, transfusion requirements, thatadversely impact HGBA1c as a marker of long-term glycemiccontrol. Alternative forms of testing such as fructosamineshould be considered for these patients.DONE AT: [facility] [address] [place] [address] GLYCOSYLATED HEMOGLOBIN [id number] 19:01:00* Test Item Value Reference Range Interpretation Comme nts GLYCOSYLATED HEMOGLOBIN (HA1C) (test code = GLYHGB) 6.5 % 4.8-5.9 H Any condition th at shortens erythocyte survival or decreasesmean erythrocyte age (e.g., recovery from acute blood loss,hemolytic anemia) will falsely lower HGBA1c resultsregardless of the method used. HGBA1c results from patientswith HbSS, HbCC, and HbSc must be interpreted with cautiongiven the pathological processes, including anemia,increased red cell turnover, transfusion requirements, thatadversely impact HGBA1c as a marker of long-term glycemiccontrol. Alternative forms of testing such as fructosamineshould be considered for these patients. MEAN BLOOD GLUCOSE (test code = MBG) 140 MG/DL 70-110 H COMPREHENSIVE METABOLIC [id number] 17:18:00* Test Item Value Reference Range Interpretation Comme nts SODIUM (test code = NA) 139 mmol/L 136-145 N POTASSIUM (test code = K) 3.9 mmol/L 3.5-5.1 N CHLORIDE (test code = CL) 102.0 mmol/L 98-107 N CARBON DIOXIDE (test code = CO2) 27.4 mmol/L 21-32 N GLUCOSE (test code = GLU) 98 mg/dL 70-110 N BLOOD UREA NITROGEN (test code = BUN) 14 mg/dL 7-18 N GLOMERULAR FILTRATION RATE (test code = GFR) 59.8 >60 Unit of m easure: mL/min/1.73 l5Prrscourj Range:Healthy Adults >90 mL/min/1.73 m2 For Chronic Kidney Disease: Stage II Mild Decrease in GFR 60-90 Stage III Moderate Decrease in GFR 30-59 Stage IV Severe Decrease in GFR 15-29 Stage V Kidney Failure <15 CREATININE (test code = CREAT) 0.92 mg/dL 0.55-1.30 N TOTAL PROTEIN (test code = PROT) 6.4 g/dL 6.4-8.2 N ALBUMIN (test code = ALB) 3.7 g/dL 3.4-5.0 N GLOBULIN (test code = GLOB) 2.7 g/dL 2.2-4.2 N ALBUMIN/GLOBULIN RATIO (test code = A/G) 1.4 0.7-2.0 N CALCIUM (test code = CA) 8.6 mg/dL 8.2-10.1 N BILIRUBIN TOTAL (test code = BILT) 0.33 mg/dL 0.2-1.00 N SGOT/AST (test code = AST) 20.0 U/L 15-37 N SGPT/ALT (test code = ALT) 23.0 U/L 12-78 N Please note new normal range. ALKALINE PHOSPHATASE TOTAL (test code = ALKP) 93 U/L 46-116 N PROTHROMBIN [id number] 16:54:00* Test Item Value Reference Range Interpretation Comme nts PROTHROMBIN TIME PATIENT (test code = PTP) 10.4 secs 10.1-12.5 N INTERNATIONAL NORMAL RATIO (test code = INR) 0.92 <2.0 RECOMMENDED THER APEUTIC RANGE FOR ORAL ANTICOAGULANTTREATMENT: CONDITION INRProphylaxis of venous thrombosis in 2.0 - 3.0 high-risk medical or surgical patientsTreatment of venous thrombosis 2.0 - 3.0Prevention of embolism 2.0 - 3.0Prevention of recurrent embolism, or 3.0 - 4.5 patients with mechanical prosthetic intravascular valves IS PATIENT ON ANTICOAGULANTS ? YLIST ANTICOAGULANT/ANTI PLT MEDICATION : AspirinHas Lab been notified if Patient is on Heparin Drip? NOIf Yes, order CBC, OCCULT BLOOD, PT every other day NTHROMBOPLASTIN TIME [id number] 16:54:00 * Test Item Value Reference Range Interpretation Comme nts PTT ACTIVATED (test code = APTT) 29.6 secs 24.9-37.0 N IS PATIENT ON ANTICOAGULANTS ? YLIST ANTICOAGULANT/ANTI PLT MEDICATION : AspirinHas Lab been notified if Patient is on Heparin Drip? NOIf Yes, order CBC, OCCULT BLOOD, PT every other day NCBC W/AUTO [id number] 16:21:00* Test Item Value Reference Range Interpretation Comme nts WHITE BLOOD CELL (test code = WBC) [...] 27-34 N MEAN CELL HGB CONCENTRATION (test code = MCHC) 33.0 g/dL 30.8-34.1 N RED CELL DISTRIBUTION WIDTH (test code = RDW) 13.9 % 11-16 N PLT (test code = PLT) 195 K/mm3 130-400 N MEAN PLATELET VOLUME (test c ode = MPV) 11.1 fL 8.9-12.1 N NEUTROPHIL % (test code = NT%) 64.1 [...] K/mm3 0.02-0.10 N MANUAL DIFF REQUIRED (test c ode = MDIFF) NO MANUAL DIFF NUCLEATED RED BLOOD CELL (te st code = NRBC) 0 % 0-0 N History and Physical Notes Date/Time Note Provider Source 2022-10-23 08:31:49 Formatting of this n ote might be different from the original. H&P Update H&P was reviewed and the patient was examined and there was no change in the patient's condition. [facility] Notes Date/Time Note Provider Source 2024-04-20 16:07:55 Chief Complaint Patient presents with Follow-Up Visit No noted acute distress. Vital signs stable. [phone] (home) [phone] (work) [facility] Denisha Santamaria MA [facility] 2024-04-16 13:33:13 Chief Complaint Patient presents with Physical Due for her HRA/physical, not fasting Marianne Villa MA, II [facility] 2022-10-22 12:26:27 Formatting of this n ote might be different from the original. Arrival time given for 10/23/22 at 0800. No reported change in health condition since pre-op screening call. No significant medical visits noted in chart review notes or reported by patient. Mana Hong RN [facility] 2022-10-17 17:26:09 Formatting of this n ote might be different from the original. Images from the original note were not included. Your procedure is at [facility] on 10/23/22. The address is [address] [place] [address], [address]. [facility] nursing staff will call you the workday before your procedure to let you know what time to arrive.On the day of your procedure, please go inside that door and check in at the desk. Please note: You may not travel home alone and that includes in a taxi or by bus. We must speak to your Responsible Adult (who will be picking you up) the morning of your procedure, before the start of your procedure. This person must be an adult over the age of 18 years of age. Do not eat any solid food after midnight the night before surgery. You may have sips of clear liquids such as water, gatorade, and sprite up until two hours before your scheduled procedure. You may take your medications with a sip of water as directed by physician. Anticoagulants will be per physician guidance. Medication Note(s)/Instructions:Will continue ASA per MD instruction. Pending screening, we may test for COVID. If a patient tests positive, their cases are cancelled and/or rescheduled. COVID SCREENING NOTE: Denies COVID symptoms, no testing required. Additional requests, questions, concerns:n/a Patient verbalized understanding of pre-op instructions and voiced no further questions at this time. T [facility] 2018-10-07 07:49:00 [facility] Discharge Summary REPORT#:[id number] REPORT STATUS: Signed DATE:10/07/18 TIME: 748 PATIENT: KATHIE HUNTER UNIT #: [id number] ROOM/BED: [facility]-A : 43 AGE: 72 SEX: F ATTEND: Akin Ragsdale MD ADM AUTHOR: Akin Ragsdale MD * ALL edits or amendments must be made on the electronic/computer document * PCP PCP Discharge to: home General Information Date of discharge: 09/25/18 Hospital course: Discharge Diagnosis: Right Hip Degenerative Disease Procedure: Right Hip Arthroplasty Hospital Course and Findings The patient underwent the procedure without incident. Findings were significant for degenerative disease of the hip. The patient was hemodynamically and medically monitored during the postoperative period. Anticoagulation was instituted for postoperative DVT prophylaxis. The patient was progressively able to tolerate PO pain medications and the appropriate diet. Physical therapy was instituted, with a progressive ability to ambulate and perform exercises. The patient was eventually deemed stable and safe for discharge. At discharge, the patient was comfortable, with a controlled pain level. There were no chest or abdominal symptoms present. Discharge physical examination demonstrated stable vital signs and no acute distress. The patient had an intact wound with no significant drainage, and no calf tenderness and a negative Aleksandr s sign bilaterally. There were no neurologic or vascular deficits or changes from the preoperative state. Disposition: Discharged to home Discharge Condition: Stable Instructions: Instruction sheet given to patient Activity: Ambulate with assistance and walking aid, with weight-bearing as instructed in the hospital. Weight bearing limitations were reviewed with the patient during the hospitalization. Diet: As per preoperatively Prescriptions 1. Pain Medications: As per discharge prescription, with progressive weaning as pain decreases 2. Anticoagulation: As per discharge prescription, or PreOp anticoagulant, as discussed with patient Follow-up Appointment: Patient instructed to arrange appointment for an office visit in 2 weeks Med Rec Med Rec Discharge meds: Stop taking the following medications: ASPIRIN (ASPIRIN) 81 MG TAB.CHEW ORAL DAILY. Continue taking these medications: metFORMIN (GLUCOPHAGE) 500 MG TAB 500 MILLIGRAM ORAL TWICE DAILY. BIOTIN (BIOTIN) 5 MG CAP ORAL DAILY. FAMOTIDINE (PEPCID) 20 MG TAB 20 MILLIGRAM ORAL DAILY. UBIDECARENONE (CO Q-10) 200 MG CAP 200 MILLIGRAM ORAL DAILY. MIRABEGRON (MYRBETRIQ) 50 MG TAB.ER.24H 50 MILLIGRAM ORAL DAILY. LISINOPRIL/HCTZ (ZESTORETIC 20/12.5 MG) 1 TAB TAB 1 TABLET ORAL DAILY. Start taking the following new medications: ASPIRIN EC (ECOTRIN) 81 MG TAB.EC 81 MILLIGRAM ORAL TWICE DAILY WITH MEALS. Qty = 60 No Refills POLYETHYLENE GLYCOL 3350 (MIRALAX) 17 GM POWDER 17 GRAM ORAL BEDTIME. Days = 30 Qty = 30 No Refills Instructions: please take daily for constipation prevention MELOXICAM (MOBIC) 15 MG TAB 15 MILLIGRAM ORAL DAILY. Qty = 30 No Refills HYDROcodone/APAP (NORCO 10/325) 1 TAB TAB 1 TABLET ORAL EVERY 6 HOURS NEEDED. as needed for pain Qty = 60 No Refills Instructions: take for breakthrough pain after taking Tramadol METHOCARBAMOL (ROBAXIN) 500 MG TAB 500 MILLIGRAM ORAL FOUR TIMES A DAY. Qty = 20 No Refills traMADol (ULTRAM) 50 MG TAB 50 MILLIGRAM ORAL EVERY FOUR HOURS. Qty = 60 No Refills Discharge Instructions Wound/dressing care: Keep wound clean and dry Equipment/supplies: Walker Follow-up Appointments Attending Physician: Attending Physician: Akin Ragsdale MD Follow up: In 1-2 weeks at 0753 RPT #:[id number] END OF REPORT [facility] 2018-09-25 10:04:00 [facility] ([facility]) Clinical Note REPORT#:[id number] REPORT STATUS: Signed DATE:09/25/18 TIME: 1004 PATIENT: KATHIE HUNTER UNIT #: [id number] ROOM/BED: [address] : 43 AGE: 72 SEX: F ATTEND: Akin Ragsdale MD ADM AUTHOR: Alexandr Delgado MD * ALL edits or amendments must be made on the electronic/computer document * Clinical Note Note: [facility] Alexandr Blanca M.D. (cell text [phone]) Assessment/Plan 1.) Anemia of acute blood loss- .Hgb 9.2, asymptomatic. 2.) S/p Left MARGARITO- .acute pain control. Anticoagulation as per Dr. Ragsdale. 3.) Hypertension- .follow BP and hold Rxs if SBP<120. 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 * OK for DISCHARGE per Internal Medicine. Prior Events/Overnight: Uneventful. Chief Complaint: No significant complaints. Objective Vital Signs Date Temp Pulse Resp B/P B/P Mean Pulse Ox FiO2 09/24-09/25 96.6-98.4 58-75 11-18 108-138/62-73 78.2-97 97-100 24-32 Gen: Alert, oriented, in mild discomfort Neck: No Masses, No Thyromegaly- CV: Regular Rate Rhythm / Edema- no significant Resp: Clear To Ascultation / Normal Respiratory Effort ABD: NonTender / NonDistended MS/Skin: No Cyanosis / No nodules / +Ankle DF/PF / nl capillary refill of toes. Other: thighs soft, deressing dry Labs/X-ray: Laboratory Tests: 09/25 09/25 09/24 09/24 0505 0400 2000 1641 Chemistry Sodium (135 - 145 mEq/L) 140 Potassium (3.5 - 5.0 mEq/L) 4.8 Chloride (100 - 115 mEq/L) 106 Carbon Dioxide (22 - 31 mEq/L) 27 BUN (7 - 18 mg/dL) 25 H Creatinine (0.5 - 1.0 mg/dL) 1.0 Glomerular Filtr Rate (>60) 54.3 Glucose (65 - 110 mg/dL) 168 H POC Glucose (60 - 125 mg/dL) 150 H 152 H 170 H Calcium (8.4 - 10.2 mg/dL) 7.4 L Hematology Hgb (12 - 16 g/dL) 9.2 L Hct (37 - 47 %) 27.3 L Alexandr Blanca M.D. at 1043 RPT #:[id number] END OF REPORT [facility] 2018-09-25 07:28:00 [facility] ([facility]) Clinical Note REPORT#:[id number] REPORT STATUS: Signed DATE:09/25/18 TIME: 727 PATIENT: KATHIE HUNTER UNIT #: [id number] ROOM/BED: [address] : 44 AGE: 72 SEX: F ATTEND: Akin Ragsadle MD ADM AUTHOR: Akin Ragsdale MD * ALL edits or amendments must be made on the electronic/computer document * Clinical Note Note: POD# 1 right hip Joint Arthroplasty Patient well, reports pain is mild-moderate AF VSS Exam: dressing dry/intact Moves toes DF/PF Sensory unchanged A/P: Mobilize with physical Therapy DVT prophylaxis ongoing Following labs Remove coverlet, do not recover, patient may shower Discharge planning at 0728 RPT #:[id number] END OF REPORT [facility] 2018-09-24 17:42:00 [facility] ([facility]) Clinical Note REPORT#:[id number] REPORT STATUS: Signed DATE:09/24/18 TIME: 1741 PATIENT: KATHIE HUNTER UNIT #: [id number] ROOM/BED: [address] : 44 AGE: 72 SEX: F ATTEND: Akin Ragsdale MD ADM AUTHOR: Alexandr Delgado MD * ALL edits or amendments must be made on the electronic/computer document * Clinical Note Note: [facility] Alexandr Blanca MD (cell text [phone]) Internal Medicine Consult at request of : Dr. Akin Ragsdale Chief Complaint: left hip pain HPI: .72 yo F is now s/p Left Total Hip Arthroplasty (MARGARITO) by Dr. Ragsdale. Ms. Hunter relates 4 years of progressive right hip pain (recently severe, 10/17), worse with activity, and achy and stiff at times in quality. She has failed conservative management. Comorbidities: see below. PmHx: .Hypertension, Type 2 diabetes, [place] (resolved with weight loss), congenital kidney anomaly, overactive bladder, Gerd, Esteban syndrome ALLERGY: Allergies: iodine (Coded, Severe, SHORTNESS OF BREATH, RASH, 09/24/18) nickel (Coded, Severe, REDNESS, ITCHING, 09/24/18) tuberculin,PPD,multi-puncture (Coded, Severe, swelling-not positive reaction, ) latex (Coded, Intermediate, HIVES, 09/24/18) Home Medications: Home Medications: metFORMIN (GLUCOPHAGE) 500 MG PO BID BIOTIN FAMOTIDINE (PEPCID) 20 MG PO DAILY UBIDECARENONE (CO Q-10) 200 MG PO DAILY MIRABEGRON (MYRBETRIQ) 50 MG PO DAILY LISINOPRIL/HCTZ (ZESTORETIC 20/12.5 MG) 1 TAB PO DAILY ASPIRIN EC (ECOTRIN) 81 MG PO BID MEALS POLYETHYLENE GLYCOL 3350 (MIRALAX) 17 GM PO BEDTIME MELOXICAM (MOBIC) 15 MG PO DAILY HYDROcodone/APAP (NORCO 10/325) 1 TAB PO Q6H PRN PRN pain METHOCARBAMOL (ROBAXIN) 500 MG PO QID traMADol (ULTRAM) 50 MG PO Q4H SgHx: .Gastric sleeve in 2014, Hysterectomy, Tonsillectomy SHx: Tob: Quit 1994, 1 ppd x 30 yrs, FHx: .No significant hx of DVT/PE. Alcohol: none Drugs: none Lives: with family Vitals: Vital Signs Date Temp Pulse Resp B/P B/P Mean Pulse Ox FiO2 /18 96.6-98.4 58-66 11-16 129-163/62-70 93-97 97-100 32 Gen: Alert, in mild discomfort, nl nutrition. EYE: Nl lids conjunctiva. ENT: Nl ears Nose, nl lips,. Neck: Supple, nl thyroid, No masses. CV: Regular Rate Rhythm, no heave or significant murmur. Edema- none Feet toes normal temperature. RESP: Clear to Auscultation, normal Respiratory effort. ABD: Soft, NonDistended,. LYM: No significant cervical Lymphadenopathy. MS: No Clubbing, cyanosis, r anterior thigh soft, dressing dry NEURO: Nonfocal, grossly normal sensation of LE, +Ankle DF/PF PSY: Normal insight, Normal mood, oriented, . Preop Labs(09/16/18): CBC:. Hgb 11.8, Plt 187, CHEM: Na 142, K 3.7, Cr 1.03(eGFR 52.5%), . (medium to high risk of complications or morbidity) (major surgery) (IV sedative, meds) Assessment Plan 1.) Anemia of Acute Blood Loss- .will recheck 09/25/18. 2.) S/p Left MARGARITO- .acute pain control. Anticoagulation as per Dr. Ragsdale. 3.) Hypertension- .follow BP and hold Rxs if SBP<120. 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 Alexandr Blanca M.D. Thanks! at 1821 [facility] #:[id number] END OF REPORT [facility] 2018-09-24 10:07:00 [facility] ([facility]) Operative Note - Full REPORT#:[id number] REPORT STATUS: Signed DATE:09/24/18 TIME: 1007 PATIENT: KATHIE HUNTER UNIT #: [id number] ROOM/BED: [place] [address] : 44 AGE: 72 SEX: F ATTEND: Akin Ragsdale MD ADM AUTHOR: Akin Ragsdale MD * ALL edits or amendments must be made on the electronic/computer document * Operative Report Start date: 09/24/18 Start time: 0000 Pre-procedure diagnosis: R HIP OA Post-procedure diagnosis: SAME Procedures performed: R AHA Technique/Procedure: Anterior Approach Total Hip Replacement OPERATIVE PROCEDURE IN DETAIL The patient was identified in the holding area, and all questions and concerns were answered. The patient verbally confirmed the site and side of the surgery and marking of the site was done. The patient was brought to the operating room and after adequate anesthesia was obtained was placed supine on a well-padded Al[place] table. The leg was then prepped in routine sterile manner, following which it was draped including the perineum and operative areas with adhesive Ioban Drape. A surgical time-out was performed to identify correct patient, surgical site and surgery. We verified patient had received preoperative antibiotics. An incision was started slightly lateral to the anterior superior iliac spine and extended distally to make it centered over the greater trochanter. The incision was carried deep to the fascia. The fascia was incised, and the interval between the sartorius and tensor fascia juana was developed. The leash of vessel across the interval was cauterized. The hip capsule was identified and retractors were placed laterally and medially around the femoral neck. The capsule was incised in an H fashion with one limb along the neck and the other along the acetabular labrum. The capsule elevated from the intertrochanteric line distally and proximally. The neck is cut in situ according to pre-operative templating at two sites, using intraoperative fluoroscopy to confirm the level of resection. The fragment of femoral neck is removed, and the head is removed using a corkscrew. Our attention was then directed to the acetabulum. Anterior and posterior retractors were placed around the acetabulum. Remnants of labrum were excised anteriorly and posteriorly using a combination of electrocautery and sharp dissection. The acetabulum was reamed sequentially with increasing size hemispherical reamers using an offset reamer handle under fluoroscopic guidance until bleeding cancellous bone was uncovered. An acetabular component was impacted with offset inserters under fluoroscopic guidance to assure an adequate amount of inclination and anteversion. The poly liner was placed and fully seated with an impactor. Our attention was then directed to the femur. A trochanteric hook was placed lateral, around the greater trochanter. The femur was then was mobilized by external rotation, hyperextension and adduction of the leg. Dissection of the lateral capsule from the lateral neck and piriformis fossa allowed elevation of the femur which was held in place with the trochanteric hook. Preparation of the femur was started with a box osteotome, followed by a canal finder and then sequential broaching of the femoral canal using an offset broach handle until an appropriate fit and stability was encountered. A trial head and neck were assembled onto the broach and the hip was reduced. An intraoperative low AP pelvis x-ray was used to confirm the position and orientation of acetabular components, the fit and fill of the femoral component, and the leg length at trial reduction. The x-ray was used to make any adjustments needed. The trial components were then removed and the final components inserted. The tissues were then lavaged, and the hip was relocated and stability was checked. Closure was completed with a heavy absorbable suture to the capsule, followed by a running absorbable suture to the fascia. Subcutaneous absorbable suture and skin subcuticular stitches were then placed. If appropriate a 1/8 hemovac drain was placed below the fascia exiting distal and lateral to the wound. Sterile dressings were then applied. The patient was woken up from anesthesia and transferred to the recovery in stable condition. INDICATIONS FOR MOBILE WEB APPLICATION DEVELOPER The presence of a skilled surgical instrument repair specialist was medically necessary to aid for the entire procedure. Their responsibilities include patient positioning, retraction of soft tissues for wide exposure so that the surgeon can use both hands to perform the surgery, as well as stabilizing the limb for surgical instrumentation throughout the case. Retraction for exposure/visualization, as well as stabilization of the extremity is vital to the procedure and not possible without an assistant maintenance manager. In addition having an assistant maintenance manager shortens operative times which decreases expenses and improves outcomes. I am not part of any residency or fellowship training programs and therefore require the help of the assistant maintenance manager listed above for this surgery. IMPLANTS Depuy 54mm [place] cup, 36+4 liner, 4 hi trilock, 36+1.5 mm CERAMIC head Primary Surgeon: MELYSSA Wool Brusher(s): BEATRIZ PALOMARES Anesthesia: TIVA Operative findings: OA Complications: none Estimated blood loss in ml's: 300 Specimens removed/altered: none Implant(s): DEPUY at 1009 RPT #:[id number] END OF REPORT [facility] 2018-07-08 15:07:00 [id number] [place] [address] PATIENT NAME: KATHIE HUNTER ADMIT DATE: ACCOUNT NO: [id number] ROOM NO: AGE: 72 REPORT TYPE: ELECTROCARDIOGRAM SEX: F ADMITTING PHYSICIAN:Jose Carlos Alicea MD ATTENDING PHYSICIAN:Jose Carlos Alicea MD Order: [id number] Test Reason : PRE OP CLEARANCE, H/O HTN Test Date/Time Stamp: FriJul 08 2018 15:07:27 Blood Pressure : / mmHG Vent. Rate : 066 BPM Atrial Rate : 066 BPM P-R Int : 142 ms QRS Dur : 092 ms QT Int : 412 ms P-R-T Axes : 073 078 074 degrees QTc Int : 431 ms Normal sinus rhythm Normal ECG No previous ECGs available Confirmed by ELINOR OWENS MD ([id number]) on 07/11/2018 12:46:17 PM Referred By: Jose Carlos Alicea Confirmed by:ELINOR OWENS MD at 1246 PATIENT NAME: KATHIE HUNTER HCATO
--- NOTE | 2024-07-07 15:39 | RAD REPORT ---
EXAMINATION: CT CERVICAL SPINE WITHOUT CONTRAST HISTORY: PAIN COMPARISON: None TECHNIQUE: Multiple contiguous axial images were obtained in a CT of the cervical spine without IV co ntrast. Sagittal and coronal reformats were performed. One or more of the following dose reduction techniques were used: Automated exposure control, adjustment of the mA and kV according to patient si ze, and iterative reconstruction. Unless otherwise specified, incidental findings do not require dedicated imaging follow-up. FINDINGS: The vertebral bodies and intervertebral discs demonstrate normal height and alignment without fractu re or subluxation. There is disc thinning seen with posterior osteophyte formation noted mid and lower cervical levels. No prevertebral soft tissue swelling is seen. The posterior facets are well aligned. Normal alignment of the skull base with the cervical spine is seen. The odontoid appears normal and the lateral masses are symmetric. The lung apices are unremarkable. Mild carotid atherosclerosis. IMPRESSION: No evidence of acute osseous abnormality of the cervical spine. Moderate mid and lower cervical degenerative changes.
--- NOTE | 2024-07-07 15:49 | RAD REPORT ---
EXAMINATION: CT CHEST WITHOUT CONTRAST CLINICAL INDICATION: Cough;Chest pain TECHNIQUE: Routine CT scan of the chest without intravenous contrast. One or more of the following do se reduction techniques were used: Automated exposure control, adjustment of the mA and/or kV according to patient size, and/or iterative reconstruction. Unless otherwise specified, incidental fi ndings do not require dedicated imaging follow-up. COMPARISON: No prior exam. FINDINGS: LOWER NECK: Visualized thyroid gland and soft tissues are normal. LUNGS: The lungs are clear. No evidence of airspace or interstitial process. No worrisome nodules. PLEURA: No pleural effusion. No pneumothorax. . MEDIASTINUM AND LYMPH NODES: No mediastinal mass or fluid collection. Normal size mediastinal, hilar, and axillary lymph nodes. OSSEOUS STRUCTURES AND CHEST WALL: Intact. Mild dextroscoliosis of the thoracic spine. UPPER ABDOMEN: No significant abnormalities. IMPRESSION: No acute intrathoracic findings. Examination limited by lack of IV contrast.
[2024-07-07 16:16] LABS: Absolute Eosinophils 0.1 K/uL (0-0.5); Absolute Lymphocytes (CBC) 1.6 K/uL (0.7-4.9); Absolute Monocytes 0.3 K/uL (0.1-1.3); Absolute Neutrophil 2.7 K/uL (1.8-8.0); Basophils % 0.6 % (0-1.3); Eosinophils % 1.7 % (0-4.4); Hematocrit 35.4 % (36.0-45.0); Hemoglobin 11.9 g/dL (12.0-15.0); Lymphocytes % 33.9 % (15.3-44.8); MCH 29.2 pg (27.0-35.0); MCHC 33.6 g/dL (32.0-36.0); MCV 87.1 fL (80-100); MPV 8.7 fL (7.6-11.3); Monocytes % 6.2 % (3.3-12.3); Neutrophils % 57.6 % (41.7-73.7); Nucleated Red Blood Cells % 0.1 % (0-0); Platelets 160 thou/uL (152-406); RBC Red Blood Cell Count 4.06 M/uL (3.86-4.86); Red Cell Distribution Width 15.9 % (12.1-15.2)
[2024-07-07 16:31] LABS: Albumin 3.6 g/dL (3.4-5.0); Albumin/Globulin Ratio 1.1 (1.1-1.8); Anion Gap 7.8 mEq/L (5.0-15.0); Bilirubin Total 0.3 mg/dL (0.2-1.0); Globulin 3.2 g/dL (2.3-3.5); Potassium 3.8 mEq/L (3.5-5.1); Protein, Total 6.8 g/dL (6.4-8.2)
[2024-07-07] MEDS ORDERED: ONDANSETRON 4 MG/2 ML VIAL ONE (16:36)
[2024-07-07] MEDS ORDERED: DIAZEPAM 5 MG TABLET ONE (16:37)
[2024-07-07] MEDS ORDERED: NA CHLORIDE 0.9% 500 ML ONE (16:37)
[2024-07-07] MEDS ORDERED: KETOROLAC 30 MG/ML INJ ONE (16:37)
--- NOTE | 2024-07-07 17:55 | ER ---
Nurse's Notes [facility] Name: Kahtie Hunter Age: 78 yrs Sex: Female : 1945 Arrival Date: 07/07/2024 Time: 14:15 Bed 12 Private MD: Diagnosis: Torticollis;Strain of muscle, fascia and tendon at neck level, initial encounter Presentation: 07/07 14:47 Chief complaint: Patient states: woke up with a crick on right side of neck that has iw been bothering her all day, she feels it catch when she turns her head , radiates to her shoulder and into her ribs. Coronavirus screen: At this time, the client does not indicate any symptoms associated with coronavirus-19. Ebola Screen: No symptoms or risks identified at this time. Initial Sepsis Screen: Does the patient meet any 2 criteria? No. Patient's initial sepsis screen is negative. Does the patient have a suspected source of infection? No. Patient's initial sepsis screen is negative. Risk Assessment: Do you want to hurt yourself or someone else? Patient reports no desire to harm self or others. Onset of symptoms was July 07, 2024. 14:47 Method Of Arrival: Ambulatory iw 14:47 Acuity: MAURICE 4 iw 15:22 Acuity: MAURICE 3 iw Historical: - Allergies: 14:48 Iodine (Anaphylaxis); iw 14:48 Latex; iw - PMHx: 14:48 diabetes mellitus; High Cholesterol; Hypertensive disorder; iw - PSHx: 14:48 Gastric Bypass; hysterectomy; Tonsillectomy; TOTAL HIP REPLACEMENT; iw - Immunization history:: Adult Immunizations unknown. - Infectious Disease History:: Denies. - Social history:: Smoking status: Patient/guardian denies using tobacco, but has a distant history of tobacco abuse. Screenin:46 [facility] ED Fall Risk Assessment (Adult) History of falling in the last 3 months, ph including since admission No falls in past 3 months (0 pts) Confusion or Disorientation No (0 pts) Intoxicated or Sedated No (0 pts) Impaired Gait No (0 pts) Mobility Assist Device Used No (0 pt) Altered Elimination No (0 pt) Score/Fall Risk Level 0 - 2 = Low Risk Oriented to surroundings, Maintained a safe environment, Hourly rounding (assess needs \T\ fall precautionary measures) done. Abuse screen: Denies threats or abuse. Denies injuries from another. Nutritional screening: No deficits noted. Tuberculosis screening: No symptoms or risk factors identified. Assessment: 16:47 General: Appears in no apparent distress. slender, well groomed, Behavior is calm, ph cooperative, appropriate for age. Pain: Complains of pain in R side of neck. Neuro: Level of Consciousness is awake, alert, obeys commands, Oriented to person, place, time, situation. Cardiovascular: Capillary refill < 3 seconds in bilateral fingers Patient's skin is warm and dry. Respiratory: Airway is patent Respiratory effort is even, unlabored. Derm: Skin is pink, warm \T\ dry. Vital Signs: 14:47 BP 169 / 89; Pulse 66; Resp 16; Pulse Ox 100% on R/A; Weight 79.38 kg; Height 5 ft. 5 iw in. ; Pain 10/10; 16:47 BP 158 / 87; Pulse 65; Resp 18; Pulse Ox 100% on R/A; ph 18:25 BP 139 / 78; Pulse 61; Resp 18; Temp 97.4; Pulse Ox 100% on R/A; ph 14:47 Body Mass Index 29.12 (79.38 kg, 165.1 cm) iw 14:47 Pain Scale: Adult iw ED Course: 14:18 Patient arrived in ED. im 14:18 Emanuel Rashid PA is PHCP. cp 14:37 Emanuel Ortiz MD is Attending Physician. yadira 14:48 Triage completed. iw 14:49 Arm band placed on. iw 15:31 CT Chest Wo Con In Process Unspecified. EDMS 15:31 CT C Spine In Process Unspecified. EDMS 16:09 CMP Sent. bc6 16:09 CBC with Diff Sent. bc6 16:09 Initial lab(s) drawn, by il, sent to lab. Inserted saline lock: 20 gauge in right bc6 antecubital area, using aseptic technique. Blood collected. Flushed with 10 mL NS. 16:32 Lorin Melgoza, RN is Primary Nurse. ph 16:46 Patient has correct armband on for positive identification. Bed in low position. Call ph light in reach. Side rails up X 1. Pulse ox on. NIBP on. Door closed. Noise minimized. Warm blanket given. 16:47 No provider procedures requiring assistance completed. ph 17:56 Stalin Smith MD is Referral Physician. yadira 18:25 IV discontinued, intact, bleeding controlled, No redness/swelling at site. Pressure ph dressing applied. Administered Medications: 16:48 Drug: Ketorolac IVP 15 mg IVP once Route: IVP; Site: right antecubital; ph 18:24 Follow up: Response: No adverse reaction; Pain is decreased ph 16:48 Drug: Ondansetron IVP 4 mg IVP once; over 2 minutes Route: IVP; Site: right antecubital;ph 18:24 Follow up: Response: No adverse reaction ph 16:48 Drug: Diazepam PO 5 mg PO once Route: PO; ph 17:30 Follow up: Response: No adverse reaction; Pain is decreased ph 16:48 Drug: NS 0.9% IV 500 ml 500 ml IV at 1 bolus once; to be given as a bolus over 30 ph minutes Volume: 500 ml; Route: IV; Rate: 1 bolus; Site: right antecubital; 17:30 Follow up: Response: No adverse reaction; IV Status: Completed infusion; IV Intake: ph 500ml 18:23 Drug: Decadron - Dexamethasone IVP 10 mg IVP once Route: IVP; Site: right antecubital; ph 18:24 Follow up: Response: No adverse reaction ph Medication: 16:46 VIS not applicable for this client. ph Intake: 17:30 IV: 500ml; Total: 500ml. ph Outcome: 17:54 Discharge ordered by . yadira 18:25 Discharged to home ambulatory, ph 18:25 Condition: good 18:25 Discharge instructions given to patient, Instructed on discharge instructions, follow up and referral plans. medication usage, Demonstrated understanding of instructions, follow-up care, medications, Prescriptions given X 4, 18:25 Patient left the ED. ph Signatures: Dispatcher [employer] EDMS Emanuel Ortiz MD MD cha Williams, Irene, RN RN Lorin Melgoza RN RN Emanuel Rashid PA PA cp [place], [facility] Irlanda Walsh Corrections: (The following items were deleted from the chart) 14:48 14:47 BP 169 / 89; Pulse 66bpm; Resp 16bpm; Pulse Ox 100% RA; Pain 10/10, Adult; iw iw
--- NOTE | 2024-07-07 17:55 | EDPHYS ---
Physician Documentation [facility] Name: Kathie Hunter Age: 78 yrs Sex: Female : 1945 Arrival Date: 07/07/2024 Time: 14:15 Bed 12 Private MD: JONNA Physician Emanuel Ortiz HPI: 07/07 17:47 This 78 yrs old Female presents to ER via Ambulatory with complaints of Neck yadira Pain, <24hrs Old, Shoulder Pain, Flank Pain. 17:47 The patient or guardian complains of decreased range of motion, pain, that is acute. yadira The symptoms are located at the cervical spine on the left trapezius and right trapezius. Onset: The symptoms/episode began/occurred 3 day(s) ago. Context: The problem was sustained at an unknown location, at a SLEEPING IN HER CAR. Associated signs and symptoms: The patient has no apparent associated signs or symptoms. Associated signs and symptoms: The patient has no apparent associated signs or symptoms. The pain does not radiate. Modifying factors: The symptoms are alleviated by remaining still, the symptoms are aggravated by movement, pressure. Severity of symptoms: At their worst the symptoms were moderate, in the emergency department the symptoms are unchanged. The patient has experienced similar episodes in the past, a few times. Historical: - Allergies: 14:48 Iodine (Anaphylaxis); iw 14:48 Latex; iw - PMHx: 14:48 diabetes mellitus; High Cholesterol; Hypertensive disorder; iw - PSHx: 14:48 Gastric Bypass; hysterectomy; Tonsillectomy; TOTAL HIP REPLACEMENT; iw - Immunization history:: Adult Immunizations unknown. - Infectious Disease History:: Denies. - Social history:: Smoking status: Patient/guardian denies using tobacco, but has a distant history of tobacco abuse. ROS: 17:48 Constitutional: Negative for fever, chills, and weight loss, Eyes: Negative for injury, yadira pain, redness, and discharge, ENT: Negative for injury, pain, and discharge, Cardiovascular: Negative for chest pain, palpitations, and edema, Respiratory: Negative for shortness of breath, cough, wheezing, and pleuritic chest pain, Abdomen/GI: Negative for abdominal pain, nausea, vomiting, diarrhea, and constipation, Back: Negative for injury and pain, : Negative for injury, bleeding, discharge, and swelling, MS/Extremity: Negative for injury and deformity, Skin: Negative for injury, rash, and discoloration, Neuro: Negative for headache, weakness, numbness, tingling, and seizure, Psych: Negative for depression, anxiety, suicide ideation, homicidal ideation, and hallucinations, Allergy/Immunology: Negative for hives, rash, and allergies, Endocrine: Negative for neck swelling, polydipsia, polyuria, polyphagia, and marked weight changes, Hematologic/Lymphatic: Negative for swollen nodes, abnormal bleeding, and unusual bruising, 17:48 Neck: Positive for injury or acute deformity, pain with movement, pain at rest, tenderness, of the back and right trapezius and cervical spine, Exam: 17:48 Constitutional: This is a well developed, well nourished patient who is awake, alert, yadira and in no acute distress. Head/Face: Normocephalic, atraumatic. Eyes: Pupils equal round and reactive to light, extra-ocular motions intact. Lids and lashes normal. Conjunctiva and sclera are non-icteric and not injected. Cornea within normal limits. Periorbital areas with no swelling, redness, or edema. ENT: Nares patent. No nasal discharge, no septal abnormalities noted. Tympanic membranes are normal and external auditory canals are clear. Oropharynx with no redness, swelling, or masses, exudates, or evidence of obstruction, uvula midline. Mucous membranes moist. Chest/axilla: Normal chest wall appearance and motion. Nontender with no deformity. No lesions are appreciated. Cardiovascular: Regular rate and rhythm with a normal S1 and S2. No gallops, murmurs, or rubs. Normal PMI, no JVD. No pulse deficits. Respiratory: Lungs have equal breath sounds bilaterally, clear to auscultation and percussion. No rales, rhonchi or wheezes noted. No increased work of breathing, no retractions or nasal flaring. Abdomen/GI: Soft, non-tender, with normal bowel sounds. No distension or tympany. No guarding or rebound. No evidence of tenderness throughout. Skin: Warm, dry with normal turgor. Normal color with no rashes, no lesions, and no evidence of cellulitis. MS/ Extremity: Pulses equal, no cyanosis. Neurovascular intact. Full, normal range of motion., bilateral aka Neuro: Awake and alert, GCS 15, oriented to person, place, time, and situation. Cranial nerves II-XII grossly intact. Motor strength 5/5 in all extremities. Sensory grossly intact. Cerebellar exam normal. Normal gait. Psych: Awake, alert, with orientation to person, place and time. Behavior, mood, and affect are within normal limits. 17:48 Neck: External neck: is normal, no acute changes, C-spine: appears grossly normal, no acute changes, Thyroid: appears normal, Trachea: is midline with no obvious abnormalities, ROM/movement: limited range of motion, that is mild, Meningeal signs: are not present, Kernig's sign is negative, Brudzinski's sign is negative, Lymph nodes: no appreciated lymphadenopathy, 17:48 Cardiovascular: Rate: normal, Rhythm: regular, Pulses: no pulse deficits are appreciated, Pulses are 4+ in bilateral radial, brachial, femoral, popliteal, posterior tibial and and dorsalis pedis arteries.. Heart sounds: normal, Edema: is not appreciated, JVD: is not appreciated, Vital Signs: 14:47 BP 169 / 89; Pulse 66; Resp 16; Pulse Ox 100% on R/A; Weight 79.38 kg; Height 5 ft. 5 iw in. ; Pain 10/10; 16:47 BP 158 / 87; Pulse 65; Resp 18; Pulse Ox 100% on R/A; ph 18:25 BP 139 / 78; Pulse 61; Resp 18; Temp 97.4; Pulse Ox 100% on R/A; ph 14:47 Body Mass Index 29.12 (79.38 kg, 165.1 cm) iw 14:47 Pain Scale: Adult iw MDM: 14:37 Medical Screening Exam initiated yadira 17:50 Differential diagnosis: arthritis, C-Spine Fracture Cervical Disc Herniation Cervical yadira Discogenic Pain Cervical Facet Syndrome Cervical Raiculopathy cervical strain, Degenerative Disc Disease fracture, Neck Contusion Osteoarthritis Simple Wedge Fracture Spondylosis subluxation, Thoracic Outlet Syndrome torticollis. Data reviewed: vital signs, nurses notes, lab test result(s), radiologic studies, CT scan. Consideration of Admission/Observation Escalation of care including admission/observation considered. I considered the following discharge prescriptions or medication management in the emergency department Medications were administered in the Emergency Department. See MAR. Independent interpretation of the following test(s) in the Emergency Department CT Scan: My interpretation is CT C SPINE. Test considered but Not performed: MRI: NO MRI SPINE. Historians other than the Patient: PT WELL INFORMED. Care significantly affected by the following chronic conditions: Diabetes, Hypertension, OA. Counseling: I had a detailed discussion with the patient and/or guardian regarding the historical points, exam findings, and any diagnostic results supporting the discharge/admit diagnosis, lab results, radiology results, the need for outpatient follow up, for definitive care, a family practitioner. 07/07 15:15 Order name: CBC with Diff; Complete Time: 17:40 [facility] 07/07 15:15 Order name: CMP; Complete Time: 17:40 [facility] 07/07 15:15 Order name: CT Chest Wo Con; Complete Time: 17:40 [facility] 07/07 15:15 Order name: CT C Spine; Complete Time: 17:40 yadira Administered Medications: 16:48 Drug: Ketorolac IVP 15 mg IVP once Route: IVP; Site: right antecubital; ph 18:24 Follow up: Response: No adverse reaction; Pain is decreased ph 16:48 Drug: Ondansetron IVP 4 mg IVP once; over 2 minutes Route: IVP; Site: right antecubital;ph 18:24 Follow up: Response: No adverse reaction ph 16:48 Drug: Diazepam PO 5 mg PO once Route: PO; ph 17:30 Follow up: Response: No adverse reaction; Pain is decreased ph 16:48 Drug: NS 0.9% IV 500 ml 500 ml IV at 1 bolus once; to be given as a bolus over 30 ph minutes Volume: 500 ml; Route: IV; Rate: 1 bolus; Site: right antecubital; 17:30 Follow up: Response: No adverse reaction; IV Status: Completed infusion; IV Intake: ph 500ml 18:23 Drug: Decadron - Dexamethasone IVP 10 mg IVP once Route: IVP; Site: right antecubital; ph 18:24 Follow up: Response: No adverse reaction ph Disposition Summary: 07/07/24 17:54 Discharge Ordered Notes: Location: Home yadira Problem: new yadira Symptoms: have improved yadira Condition: Stable yadira Diagnosis - Torticollis yadira - Strain of muscle, fascia and tendon at neck level, initial encounter yadira Followup: yadira - With: Private Physician - When: 2 - 3 days - Reason: Recheck today's complaints, Continuance of care, Re-evaluation by your physician Followup: [facility] - With: Stalin Smith MD - When: 2 - 3 days - Reason: Recheck today's complaints, Re-evaluation by your physician Discharge Instructions: - Discharge Summary Sheet [facility] - Acute Torticollis, Adult [facility] - Cervical Sprain yadira - Cervical Sprain, [id number] yadira - Neck Contusion, [id number] Forms: - Medication Reconciliation Form [facility] - Antibiotic Education [facility] - Prescription Opioid Use [facility] - Patient Portal Instructions [facility] - Leadership Thank You Letter [facility] Prescriptions: - diclofenac sodium 50 mg Oral tablet, delayed release (enteric coated) - take 1 tablet ORAL route 3 times per day; 21 tablet; Refills: 0, Product [facility] Selection Permitted - Tylenol 325 mg Oral tablet - take 2 tablets ORAL route every 6 hours as needed; 16 tablet; Refills: 0, [facility] Product Selection Permitted - methocarbamol 750 mg Oral tablet - take 1 tablet ORAL route 4 times per day; 28 tablet; Refills: 0, Product [facility] Selection Permitted - Dexamethasone 4mg Oral tablet - take 1 tablet ORAL route daily for 4 days; 4 tablet; Refills: 0, Product [facility] Selection Permitted Signatures: Dispatcher [employer] Emanuel Contreras MD MD cha Williams, Irene, AKUA RN Lorin Livingston RN RN ph
[2024-07-07] MEDS ORDERED: dexAMETHasone 10 MG/ML VIAL ONE (18:11)
[2024-07-07 18:40] VITALS: O2SAT 100
[2024-07-07 18:52] VITALS: BP 139/78; TEMP 97.4
== END 2024-07-07 18:25 | disposition home or self-care (01) ==
LOC: ER 14:15
DX: S16.1XXA Strain of muscle, fascia and tendon at neck level, initial encounter (principal); M43.6 Torticollis
CPT/HCPCS: 36415; 71250; 72125; 80053; 85025; J1100; J2405; J7040

== ENCOUNTER 2024-10-13 10:17 | Emergency (ER) | payer OTHER ==
--- OUTSIDE RECORDS SUMMARY | 2024-10-13 10:24 | XMS REPORT | Continuity of Care Document ---
Author Name Unknown Address [address] [facility] [address] [place] [address] [facility] Address [address] [facility] [address] [place] [address] Care Team Providers Care Station Usher Name Role Phone No MD, Pcp Primary Care Physician Unavailab Maryanne Gao Attending Clinician Unavailable CURT REEVES Attending Clinician Unavailable JESUSITA SINGH Attending Clinician Unavail able TRED47 Attending Clinician Unavailable YUNG BRAGA Attending Clinician Unavailable LAB47 Attending Clinician Unavailable Ritesh Escobar MD Attending Clinician [phone] Sae Moreland MD Attending Clinician [phone] SAE MORELAND Attending Clinician Unavailab le Doctor Unassigned, [place] Attending Clinician U roxanne Gandhi MD, Nano Attending Clinician [phone] Lab, Ang - Db Attending Clinician Unavailable Pretty Wolff RN Attending Clinician Unavailab lauren Donohue MD, Abdirashid Mackay Attending Clinician [phone] ABDIRASHID DONOHUE Attending Clinician Unavailable MAXINE PRINCE Attending Clinician Unavailable Umair GALLO, Maxine Attending Clinician [phone] NADEEM WARREN Attending Clinician Unavailabl MATT Kate Attending Clinician Unavailable Briana GALLO, Nadeem Attending Clinician [phone] Kamila Quintero Attending Clinician + [phone] Derek PHD, Yarelis Mcnair Attending Clinician + [phone] YARELIS BILLINGS Attending Clinician Unavailab le Provider, [facility] Attending Clinician Unavailable Natasha Nolen Attending Clinician [phone] SUNNI MILLAN Attending Clinician Unavailable DEV CORADO Attending Clinician Unavailable Yeni Attending Clinician Unavailable Matt Martin PA-C Attending Clinician [phone] Jeannie Mims Attending Clinician +[phone] Sae Moreland MD Admitting Clinician [phone] SAE MORELAND Admitting Clinician Unavailab NADEEM Yoon Admitting Clinician Unavailabl lety Jaime Admitting Clinician Unavailable Payers Payer Name Policy Type Policy Number Effective Date Expirati on Date Source MEDICARE PART A \\T\\ B [id number] 2009 00:00:00 [employer] OPEN CHOICE PPO [id number] 2023 00:00:00 [employer] [place] 5 [id number] 2024 00:00:00 [employer] MEDICARE PPO 53 [id number] [facility] [place]: [employer] [id number] 2009 00:00:00 [employer] (INDEMNITY) [id number] 2003 00:00:00 Problems Condition Name Condition Details Condition Category Status Onset Date Resolution Date Last Treatment Date Treating Clinician Comments Source Stage 3a chronic kidney disease Stage 3a chronic kidney disease Disease Active 04-16 00:00: 00 Mariah mcnair Urinary incontinen ce Urinary incontinen ce Disease Active 04-16 00:00: 00 Mariah Hama tabby Statin intoleranc e Statin intoleranc e Disease Active 04-16 00:00: 00 Mariah mcnair Current severe episode of major depressive disorder without psychotic features (multi HCC) Current severe episode of major depressive disorder without psychotic features (multi HCC) Disease Active 04-16 00:00: 00 Mariah mcnair Type 2 diabetes mellitus with stage 3a chronic kidney disease, without long-term current use of insulin (multi HCC) Type 2 diabetes mellitus with stage 3a chronic kidney disease, without long-term current use of insulin (multi HCC) Disease Active 04-16 00:00: 00 Mariah mcnair Primary hypertensi on Primary hypertensi on Disease Active 04-16 00:00: 00 Mariah mcnair Other hyperlipid emia Other hyperlipid emia Disease Active 04-16 00:00: 00 Mariah Hama tabby Age-relate d osteoporos is without current pathologic al fracture Age-relate d osteoporos is without current pathologic al fracture Disease Active 04-16 00:00: 00 Mariah Hama tabby Sinus bradycardi a Sinus bradycardi a Disease Active 09-25 00:00: 00 [facility] NSVT (nonsustai archana ventricula r tachycardi a) NSVT (nonsustai archana ventricula r tachycardi a) Disease Active 09-25 00:00: 00 [facility] COVID-19 virus infection COVID-19 virus infection Disease Active 09-25 00:00: 00 [facility] Pneumonia due to infectious organism Pneumonia due to infectious organism Disease Active 09-25 00:00: 00 [facility] Hypoxia Hypoxia Disease Active 09-23 00:00: 00 [facility] Pure hyperchole sterolemia Pure hyperchole sterolemia Disease Active 2009-03 00:00: 00 [facility] Type II or unspecifie d type diabetes mellitus with peripheral coordinator mining products y disorders, uncontroll ed(250.72) Type II or unspecifie d type diabetes mellitus with peripheral coordinator mining products y disorders, uncontroll ed(250.72) Disease Active 06-13 00:00: 00 [facility] Dermatophy tosis of foot Dermatophy tosis of foot Disease Active 09-02 00:00: 00 [facility] HLD (hyperlipi demia) HLD (hyperlipi demia) Disease Active 06-03 00:00: 00 Overview: Formattin g of this note might be different from the original. ICD10 Diagnosis Term Account Contact Associate Utility [facility] Essential hypertensi on Essential hypertensi on Disease Active 06-03 00:00: 00 Overview: Formattin g of this note might be different from the original. ICD10 Diagnosis Term Account Contact Associate Utility [facility] Dyspnea and respirator y abnormalit y Dyspnea and respirator y abnormalit y Disease Active 06-03 00:00: 00 Overview: Formattin g of this note might be different from the original. ICD10 Diagnosis Term Account Contact Associate Utility [facility] Type II diabetes mellitus without complicati on Diabetes mellitus type 2, controlled , without complicati ons Problem [facility] High blood pressure High blood pressure Problem [facility] [id number] Viral illness Problem [facility] [id number] Arthritis Problem [facility] [id number] Grief Problem [facility] [id number] Uncontroll ed type 2 diabetes mellitus with hyperglyce esperanza Problem [facility] [id number] assisted current use of oral hypoglycem ic drug Problem [facility] [id number] Age-relate d osteoporos is with current pathologic al fracture with delayed healing, subsequent encounter Problem [facility] [id number] Rib pain Problem [facility] [id number] Rib injury Problem [facility] Allergies, Adverse Reactions, Alerts Allergy Name Allergy Type Status Severity Reaction(s) Onset Date Inactive Date Treating Clinician Comments Source Hmg-Coa- R Inhibito rs Propensi ty to adverse reaction s Active Myalgia 2-07 00:00: 00 Mariah Alcala - Externa l MILK DRUG INGREDI Active Med Diarrhea 8-10 00:00: 00 [facility] Milk Drug Intolera nce Active Diarrhea 8-10 00:00: 00 [facility] iodine DA Active SV 09-24 00:00: 00 [...] reaction s Active 07-08 00:00: 00 Mariah Barrett l Latex Propensi ty to adverse reaction s Active Rash 05-26 00:00: 00 Burning/p ain [facility] LATEX DRUG INGREDI Active High Rash 05-26 00:00: 00 [facility] iodine DA Active MO 2012-03 00:00: 00 [facility] niacin DA Active MO 2012-03 00:00: 00 [facility] latex DA Active MO 2012-03 00:00: 00 [facility] Iodine Propensi ty to adverse reaction s Active Anaphylaxis 2012-03 00:00: 00 Mariah Hama l Latex Propensi ty to adverse reaction s Active Rash 2012-03 00:00: 00 Mariah mcnair Niacin, Antihype rlipidem ic Propensi ty to adverse reaction s Active 2012-03 00:00: 00 Mariah mcnair Latex Allergy to substanc e Active Rash 2012-03 00:00: 00 Other Reaction( s): Itching/H kyle/Rash Burning/p ain [facility] Niacin Allergy to substanc e Active 2012-03 00:00: 00 [facility] Iodine Propensi ty to adverse reaction s Active Anaphylaxis 06-03 00:00: 00 [facility] IODINE DRUG INGREDI Active Anaphylaxis 06-03 00:00: 00 [facility] Iodine Allergy to substanc e Active Anaphylaxis 06-03 00:00: 00 Other Reaction( s): shock [facility] 0 Drug allergy Active rash [facility] 463 Drug allergy Active shock [facility] Social History Social Habit Start Date Stop Date Quantity Comments Source History of tobacco use Cigarette Smoker Mariah eastman - External ASSERTION Possible Mariah Alcala - External Sexual orientation Freya Alcala - External Gender identity [facility] Alcoholic beverage intake 2024-04-20 00:00:00 2024-04-20 00:00:00 [...] SARS-CoV-2 (event) 2021-09-17 00:00:00 2021-09-27 14:14:00 Yes [facility] Alcohol intake 2021-09-27 00:00:00 2021-09-27 00:00:00 Current non-drinker of alcohol (finding) [facility] Sex assigned at 1945 00:00:00 1945 00[birth year]:00 Mariah Cabreramoyraiza Bartolome Hemphill Smoking Status Start Date Stop Date Source Ex-smoker 2024-04-16 00:00:00 2024-04-16 00:00:00 Freya robles Semoyraiza - External Never smoked tobacco [facility] Medications Ordered Medication Name Filled Medication Name Start Date Stop Date Current Medication? Ordering Clinician Indication Dosage Frequency Signature (SIG) Comments Components Source Vibegron (GEMTESA OR) 04-20 16:00: 20 Yes Take by mouth. Mariah mcnair Ergocalcife rol 1.25 MG (35546 UT) oral Capsule 04-20 00:00: 00 Yes [id number] Q1W Take 1 capsule (50,000 units total) [...] MG oral Tablet 04-16 00:00: 00 Yes [id number] 50mg Q.5D Take 1 tablet (50 mg [...] Nausea and Vomiting (N/V), PACU [facility] neomycin-po lymyxin-dex amethasone (MAXITROL) 3.5 mg/g-10,000 unit/g-0.1 % ophthalmic ointment 10-23 14:52: 00 10-23 14:57 :03 No PRN, Starting on Fri10/23/22 at 0952, Until Fri10/23/22 at 0957, Routine, [facility] sodium chloride (NS) [facility] 10-23 14:51: 00 10-23 14:57 :03 No PRN, Starting on Fri10/23/22 at 0951, Until Fri10/23/22 at 0957, Routine, [facility] dexamethaso ne (DECADRON PHOSPHATE) injection 10-23 14:51: 00 10-23 14:57 :03 No PRN, Starting on Fri10/23/22 at 0951, Until Fri10/23/22 at 0957, Routine, Intra-op [facility] ceFAZolin (ANCEF) injection 10-23 14:51: 00 10-23 14:57 :03 No PRN, Starting on Fri10/23/22 at 0951, Until Fri10/23/22 at 0957, KEY, Intra-op [facility] carbachoL (MIOSTAT) 0.01 % intraocular injection 10-23 14:50: 00 10-23 14:57 :03 No PRN, Starting on Fri10/23/22 at 0950, Until Fri10/23/22 at 0957, Routine, Intra-op [facility] EPINEPHrine 1:1,000 (1 mg/mL) (ADRENALIN) injection 10-23 14:40: 00 10-23 14:57 :03 No PRN, Starting on Fri10/23/22 at 0940, Until Fri10/23/22 at 0957, Routine, Intra-op [facility] balanced salt irrig soln comb1 (BSS PLUS) ophthalmic solution 500 mL bag 10-23 14:40: 00 10-23 14:57 :03 No PRN, Starting on Fri10/23/22 at 0940, Until Fri10/23/22 at 0957, Routine, Intra-op [facility] chondroitin sulf-sod hyaluronate (DUOVISC VISCO ELASTIC) intraocular injection 10-23 14:37: 00 10-23 14:57 :03 No PRN, Starting on Fri10/23/22 at 0937, Until Fri10/23/22 at 0957, Routine, Intra-op [facility] water for irrigation irrigation solution 10-23 14:33: 00 10-23 14:57 :03 No PRN, Starting on Fri10/23/22 at 0933, Until Fri10/23/22 at 0957, Routine, Intra-op [facility] Hyaluronida se, Human Recomb. (HYLENEX) injection 10-23 14:29: 00 10-23 14:57 :03 No PRN, Starting on Fri10/23/22 at 0929, Until Fri10/23/22 at 0957, Routine, Intra-op [facility] eye block syringe 11 mL 10-23 14:29: 00 10-23 14:57 :03 No PRN, Starting on Fri10/23/22 at 0929, Until Fri10/23/22 at 0957, Intra-op [facility] cyclopent 1%-tropic 1%-phenyl 2.5%-ketor 0.5% (MYDRIATIC #5) ophthalmic solution syringe 0.5 mL 10-23 12:45: 00 10-23 12:53 :00 No .5mL 0.5 mL, Right Eye, ONCE, 1 dose, On Fri10/23/22 at 0745, Routine, DSU Pre-op [facility] lactated ringers IV infusion 1,000 mL 10-23 12:45: 00 10-23 12:54 :00 No 1000mL at 42 mL/hr, 1,000 mL, IV Infusion, ONCE, 1 dose, On Fri10/23/22 at 0745, Routine, DSU Pre-op [facility] LISINOPRIL ORAL 2022-0 816 10:48: 16 Yes 10mg Take 10 mg by mouth in the morning. [facility] aspirin 81 mg EC tablet 2022-0 16 10:48: 16 Yes 81mg Take 1 tablet by mouth in the morning. [facility] LISINOPRIL ORAL 0 10-16 11:37: 32 Yes Take by mouth. [facility] METFORMIN 500 mg tablet 0 5 00:00: 00 10-28 04:59 :00 No [id number] 500mg TAKE 1 TABLET BY MOUTH IN THE MORNING FOR 90 DAYS. [facility] Lisinopril 10 MG Lisinopril 10 MG 2021-0 929 00:00: 00 No 1{table t} QD Lisinopril 10 MG Lisinopril 10 MG Lisinopril 10 MG 2021-0 929 00:00: 00 No 1{table t} QD Lisinopril 10 MG Lisinopril 10 MG Lisinopril 10 MG 2021-0 29 00:00: 00 No 1{table t} QD Lisinopril 10 MG lisinopriL 10 mg tablet 0 09-27 00:00: 00 12-27 04:59 :00 No [id number] 10mg Take 1 tablet by mouth at bedtime for 90 days. [facility] metFORMIN 500 mg tablet 0 09-27 00:00: 00 12-27 04:59 :00 No [id number] 500mg Take 1 tablet by mouth in the morning for 90 days. [facility] mirtazapine 7.5 mg tablet 0 09-27 00:00: 00 12-27 04:59 :00 No [id number] 7.5mg Take 1 tablet by mouth at bedtime for 90 days. [facility] Aspirin 81 81 MG Aspirin 81 81 [...] height 2023-07-03 15:20:00 64.5 [in_i] [facility] weight 2023-07-03 15:20:00 143.0 [lb_av] [facility] temperature 2023-07-03 15:20:00 97.1 [degF] [facility] bmi 2023-07-03 15:20:00 24.16 kg/m2 [facility] oximetry 2023-07-03 15:20:00 98 % [facility] respiratory rate 2023-07-03 15:20:00 16 /min [facility] blood pressure systolic 2023-07-03 15:20:00 138 mm[Hg] [facility] blood pressure diastolic 2023-07-03 15:20:00 76 mm[Hg] [facility] height 2023-07-03 15:20:00 64.5 [in_i] [facility] weight 2023-07-03 15:20:00 143 [lb_av] [facility] temperature 2023-07-03 15:20:00 97.1 [degF] Com [facility] bmi 2023-07-03 15:20:00 24.16 kg/m2 [facility] oximetry 2023-07-03 15:20:00 98 % [facility] blood pressure systolic 2023-07-03 15:20:00 138 mm[Hg] [facility] blood pressure diastolic 2023-07-03 15:20:00 76 mm[Hg] Common [facility] height 2023-06-05 11:20:00 64.5 [in_i] [facility] weight 2023-06-05 11:20:00 143.4 [lb_av] [facility] temperature 2023-06-05 11:20:00 97.3 [degF] [facility] bmi 2023-06-05 11:20:00 24.23 kg/m2 [facility] oximetry 2023-06-05 11:20:00 99 % [facility] respiratory rate 2023-06-05 11:20:00 16 /min [facility] blood pressure systolic 2023-06-05 11:20:00 137 mm[Hg] [facility] blood pressure diastolic 2023-06-05 11:20:00 70 mm[Hg] [facility] height 2023-02-05 11:40:00 64.5 [in_i] [facility] weight 2023-02-05 11:40:00 135 [lb_av] [facility] bmi 2023-02-05 11:40:00 22.81 kg/m2 [facility] height 2022-12-23 14:00:00 64.5 [in_i] [facility] weight 2022-12-23 14:00:00 134.6 [lb_av] [facility] temperature 2022-12-23 14:00:00 97.6 [degF] [facility] bmi 2022-12-23 14:00:00 22.74 kg/m2 [facility] oximetry 2022-12-23 14:00:00 98 % [facility] respiratory rate 2022-12-23 14:00:00 16 /min [facility] blood pressure systolic 2022-12-23 14:00:00 135 mm[Hg] [facility] blood pressure diastolic 2022-12-23 14:00:00 88 mm[Hg] [facility] Systolic blood pressure 2022-10-23 15:20:00 133 mm[Hg] [facility] Diastolic blood pressure 2022-10-23 15:20:00 56 mm[Hg] [facility] Respiratory rate 2022-10-23 15:20:00 15 /min [facility] Oxygen saturation in Arterial blood by Pulse oximetry 2022-10-23 15:20:00 100 /min [facility] Heart rate 2022-10-23 15:10:00 84 /min [facility] Body temperature 2022-10-23 14:53:00 36.67 Cookie [facility] Body height 2022-10-17 22:00:00 166.4 cm [facility] Body weight 2022-10-17 22:00:00 59.875 kg [facility] BMI 2022-10-17 22:00:00 21.63 kg/m2 [facility] Systolic blood pressure 2022-10-23 12:49:00 168 mm[Hg] [facility] Diastolic blood pressure 2022-10-23 12:49:00 73 mm[Hg] [facility] Heart rate 2022-10-23 12:49:00 55 /min [facility] Body temperature 2022-10-23 12:49:00 36.72 Cookie [facility] Respiratory rate 2022-10-23 12:49:00 14 /min [facility] Oxygen saturation in Arterial blood by Pulse oximetry 2022-10-23 12:49:00 99 /min [facility] Body height 2022-10-17 22:00:00 166.4 cm [facility] Body weight 2022-10-17 22:00:00 59.875 kg [facility] BMI 2022-10-17 22:00:00 21.63 kg/m2 [facility] height 2022-08-12 15:20:00 64.5 [in_i] [facility] weight 2022-08-12 15:20:00 130.6 [lb_av] [facility] temperature 2022-08-12 15:20:00 98.5 [degF] [facility] bmi 2022-08-12 15:20:00 22.07 kg/m2 [facility] oximetry 2022-08-12 15:20:00 98 % [facility] respiratory rate 2022-08-12 15:20:00 16 /min [facility] blood pressure systolic 2022-08-12 15:20:00 138 mm[Hg] Common [facility] blood pressure diastolic 2022-08-12 15:20:00 78 mm[Hg] Common [facility] height 2022-08-12 15:40:00 64.5 [in_i] [facility] weight 2022-08-12 15:40:00 130.6 [lb_av] [facility] temperature 2022-08-12 15:40:00 98.5 [degF] Com [facility] bmi 2022-08-12 15:40:00 22.07 kg/m2 [facility] oximetry 2022-08-12 15:40:00 98 % [facility] respiratory rate 2022-08-12 15:40:00 16 /min [facility] blood pressure systolic 2022-08-12 15:40:00 138 mm[Hg] Common [facility] blood pressure diastolic 2022-08-12 15:40:00 78 mm[Hg] Common [facility] height 2022-05-24 09:40:00 64.5 [in_i] [facility] weight 2022-05-24 09:40:00 132.8 [lb_av] [facility] temperature 2022-05-24 09:40:00 97.2 [degF] [facility] bmi 2022-05-24 09:40:00 22.44 kg/m2 [facility] oximetry 2022-05-24 09:40:00 100 % [facility] respiratory rate 2022-05-24 09:40:00 16 /min [facility] blood pressure systolic 2022-05-24 09:40:00 133 mm[Hg] [facility] blood pressure diastolic 2022-05-24 09:40:00 83 mm[Hg] [facility] height 2022-03-28 10:40:00 64.5 [in_i] [facility] weight 2022-03-28 10:40:00 133 [lb_av] [facility] temperature 2022-03-28 10:40:00 97.6 [degF] [facility] bmi 2022-03-28 10:40:00 22.47 kg/m2 [facility] oximetry 2022-03-28 10:40:00 98 % [facility] respiratory rate 2022-03-28 10:40:00 16 /min [facility] blood pressure systolic 2022-03-28 10:40:00 140 mm[Hg] [facility] blood pressure diastolic 2022-03-28 10:40:00 82 mm[Hg] Common [facility] height 2021-12-26 09:40:00 65.0 [in_i] [facility] weight 2021-12-26 09:40:00 137.3 [lb_av] [facility] temperature 2021-12-26 09:40:00 98.6 [degF] Com [facility] bmi 2021-12-26 09:40:00 22.85 kg/m2 [facility] oximetry 2021-12-26 09:40:00 100 % [facility] respiratory rate 2021-12-26 09:40:00 17 /min [facility] blood pressure systolic 2021-12-26 09:40:00 136 mm[Hg] [facility] blood pressure diastolic 2021-12-26 09:40:00 88 mm[Hg] Common [facility] height 2021-12-26 09:00:00 65.0 [in_i] [facility] weight 2021-12-26 09:00:00 137.3 [lb_av] [facility] temperature 2021-12-26 09:00:00 98.6 [degF] Com [facility] bmi 2021-12-26 09:00:00 22.85 kg/m2 [facility] oximetry 2021-12-26 09:00:00 100 % [facility] respiratory rate 2021-12-26 09:00:00 17 /min [facility] blood pressure systolic 2021-12-26 09:00:00 179 mm[Hg] Common [facility] blood pressure diastolic 2021-12-26 09:00:00 84 mm[Hg] Common [facility] height 2021-12-06 13:20:00 65 [in_i] [facility] weight 2021-12-06 13:20:00 136 [lb_av] [facility] temperature 2021-12-06 13:20:00 96.3 [degF] Com [facility] bmi 2021-12-06 13:20:00 22.63 kg/m2 [facility] oximetry 2021-12-06 13:20:00 98 % [facility] respiratory rate 2021-12-06 13:20:00 18 /min [facility] blood pressure systolic 2021-12-06 13:20:00 150 mm[Hg] Common [facility] blood pressure diastolic 2021-12-06 13:20:00 82 mm[Hg] [facility] Procedures Procedure Date / Time Performed Performing Clinician Source POCT URINALYSIS DIPSTICK 2024-04-13 20:42:00 Shawn, [facility] PHACOEMULSIFICATION OF CATARACT WITH INTRAOCULAR LENS IMPLANT 2022-10-23 14:18:00 Sae Moreland [facility] POCT GLUCOSE (AUTOMATED) 2022-10-23 12:52:00 Sae Moreland [facility] POCT GLUCOSE (AUTOMATED) 2022-10-23 12:52:00 Sae Moreland [facility] ASSIGNMENT OF BENEFITS 2022-10-16 19:07:28 Doctor Unassigned, [place] [facility] URINE CULTURE 2021-10-10 15:19:00 [facility] THYROID STIMULATING HORMONE 2021-09-28 14:15:00 [facility] MICROALBUMIN URINE 2021-09-28 14:15:00 [facility] COMP. METABOLIC PANEL (03022) 2021-09-28 14:15:00 Hiram Nano [facility] LIPID PANEL (12684)(TOTAL CHOLESTEROL, TRIGLYCERIDES, HDL) 2021-09-28 14:15:00 [facility] GLYCOSYLATED HEMOGLOBIN (A1C) 2021-09-28 14:15:00 Hiram Nano [facility] URINALYSIS 2021-09-28 14:15:00 [facility] HCV ANTIBODY 2021-09-28 14:15:00 [facility] VITAMIN D, 25-OH 2021-09-28 14:15:00 [facility] Encounters Start Date/Time End Date/Time Encounter Type Admission Type Attending [facility] Care Facility Care Department Encounter ID Source 2023-07-03 16:55:00 Outpatient Maryanne Cooper [facility] [id number] [facility] 2023-04-24 07:40[facility] [id number] [facility] 2023-01-03 16:25:00 Outpatient Maryanne Cooper [facility] [id number] [facility] 2022-12-19 08:20:00 Outpatient Maryanne Cooper STLMLC STLMLC [id number] [facility] 2022-11-08 09:52:00 Outpatient Maryanne Cooper STLMLC STLMLC [id number] [facility] 2022-06-20 15:24:00 Outpatient Maryanne Cooper STLMLC STLMLC [id number] [facility] 2022-05-24 10:38:00 Outpatient Maryanne Cooper STLMLC STLMLC [id number] [facility] 2022-03-26 08:05:00 Outpatient Maryanne Cooper STLMLC STLMLC [id number] [facility] 2021-12-24 16:34:00 Outpatient Maryanne Cooper STLMLC STLMLC [id number] [facility] 2021-12-06 13:57:00 Outpatient Maryanne Cooper STLMLC STLMLC [id number] [facility] 2021-12-04 08:53:00 Outpatient Maryanne Cooper STLMLC STLMLC [id number] [facility] 2021 13:47:00 Outpatient Maryanne Cooper STLMLC STLMLC [id number] [facility] 2021-04-04 13:37:37 Outpatient Maryanne Cooper STLMLC STLMLC [id number] [facility] 2021-01-08 08:52:09 Emergency [facility] [id number] [facility] 2024-05-25 13:20:00 2024-05-25 13:20:00 Outpatient CURT REEVES [facility] [id number] [facility] 2024-05-09 00:00:00 2024-05-09 00:00:00 Outpatient JESUSITA SINGH [id number] [facility] 2024-04-20 16:45:00 2024-04-20 16:45:00 Outpatient TREAlexandr GARCIA [id number] [facility] 2024-04-20 16:30:00 2024-04-20 16:30:00 Outpatient YUNG BRAGASEY [id number] [facility] 2024-04-20 00:00:00 2024-04-20 00:00:00 Outpatient FRANCISCO JESUSITA GARCIA MARIAH [id number] [facility] 2024-04-16 16:45:00 2024-04-16 16:45:00 Outpatient JAVIER PRITCHETTSEY [id number] [facility] 2024-04-16 14:45:00 2024-04-16 14:45:00 Outpatient DEEAlexandr PRITCHETTSEY [id number] [facility] 2024-04-16 14:00:00 2024-04-16 14:00:00 Outpatient CLAUDE SINGHIE MARIAH GARCIA [id number] [facility] 2024-04-13 13:40:00 2024-04-13 14:24:17 Office Visit Ritesh Escobar [facility] [address] [facility] 1.2.840.114 350.1.13.58 9.2.7.2.686 [id number] [facility] 2023-07-10 00:00:00 2023-07-10 00:00:00 (TEL) STLMLC STLC [id number] [facility] 2023-07-03 00:00:00 2023-07-03 00:00:00 OFFICE VISIT ESTAB PT LEVEL 4 STLMLC STLMLC [id number] [facility] 2023-07-03 00:00:00 2023-07-03 00:00:00 SUB ANNUAL [facility] WELLNESS VISIT STLMLC STLMLC [id number] [facility] 2023-06-05 00:00:00 2023-06-05 00:00:00 OFFICE VISIT ESTAB PT LEVEL 3 STLMLC STLC [id number] [facility] 2023-04-28 00:00:00 2023-04-28 00:00:00 (TEL) STLMLC STLMLC [id number] [facility] 2023-02-07 00:00:00 2023-02-07 00:00:00 (TEL) STLMLC STLMLC [id number] [facility] 2023-02-05 00:00:00 2023-02-05 00:00:00 (TEL) STLMLC STLMLC [id number] [facility] 2023-02-05 00:00:00 2023-02-05 00:00:00 OFFICE VISIT ESTAB PT LEVEL 3 STLMLC STLMLC [id number] [facility] 2023-01-06 00:00:00 2023-01-06 00:00:00 (TEL) STLMLC STLMLC [id number] [facility] 2022-12-23 00:00:00 2022-12-23 00:00:00 OFFICE VISIT ESTAB PT LEVEL 3 STLMLC STLMLC [id number] [facility] 2022-10-23 07:36:00 2022-10-23 10:36:00 Hospital Encounter Sae Moreland [facility] 1.2.840.114 350.1.13.10 4.2.7.2.686 [id number] [facility] 2022-10-23 07:36:00 2022-10-23 10:36:00 Outpatient R SAE [facility] OPH [id number] [facility] 2022-10-23 08:56:00 2022-10-23 09:31:00 Surgery Sae Moreland [facility] 1.2.840.114 350.1.13.10 4.2.7.2.686 [id number] [facility] 2022-10-16 00:00:00 2022-10-16 00:00:00 Orders Only Doctor Unassigned, [place] [facility] 1.2.840.114 350.1.13.10 4.2.7.2.686 [id number] [facility] 2022-08-14 00:00:00 2022-08-14 00:00:00 (TEL) STLMLC STLMLC [id number] [facility] 2022-08-12 00:00:00 2022-08-12 00:00:00 OFFICE VISIT ESTAB PT LEVEL 3 STLMLC STLMLC [id number] [facility] 2022-08-12 00:00:00 2022-08-12 00:00:00 SUB ANNUAL MCR WELLNESS VISIT STLMLC STLMLC [id number] [facility] 2022-07-28 00:00:00 2022-07-28 00:00:00 Brittny Gandhi [facility] 1.2.840.114 350.1.13.10 4.2.7.2.686 [id number] [facility] 2022-05-24 00:00:00 2022-05-24 00:00:00 OFFICE VISIT ESTAB PT LEVEL 3 STLMLC STLMLC [id number] [facility] 2022-03-28 00:00:00 2022-03-28 00:00:00 OFFICE VISIT NEW PT LEVEL 4 STLMLC STLMLC [id number] [facility] 2022-02-15 00:00:00 2022-02-15 00:00:00 (TEL) STLMLC STLMLC [id number] [facility] 2021-12-26 00:00:00 2021-12-26 00:00:00 OFFICE VISIT EST PT LEVEL 3 STLMLC STLMLC [id number] [facility] 2021-12-26 00:00:00 2021-12-26 00:00:00 SUB ANNUAL MCR WELLNESS VISIT STLMLC STLMLC [id number] [facility] 2021-12-20 13:15:00 2021-12-20 13:15:00 Ambulatory Pre-Reg nullFlavo r [facility] [place] [id number] Kassidy Melo 2021-12-06 00:00:00 2021-12-06 00:00:00 OFFICE VISIT NEW PT LEVEL 4 STLMLC STLMLC [id number] [facility] 2021-10-10 10:00:00 2021-10-10 10:17:14 Rig Welder Visit Lab, Henrry Gandhi [facility] MANASA?[facility] 1..840.114 350.1.13.10 4.2.7.2.686 [id number] [facility] 2021-10-10 10:00:00 2021-10-10 10:00:00 Outpatient Isaac GANDHI [facility] [id number] [facility] 2021-10-09 00:00:00 2021-10-09 00:00:00 [facility] 1..840.114 350.1.13.10 4.2.7.2.686 [id number] [facility] 2021-09-28 09:00:00 2021-09-28 09:46:20 Rig Welder Visit Lab, [facility] 1..840.114 350.1.13.10 4.2.7.2.686 [id number] [facility] 2021-09-28 09:00:00 2021-09-28 09:15:00 Rig Welder Visit Lab, Henrry Gandhi [facility] OFF[facility] 1..840.114 350.1.13.10 4.2.7.2.686 [id number] [facility] 2021-09-28 09:00:00 2021-09-28 09:00:00 [facility] [id number] [facility] 2021-09-28 09:00:00 2021-09-28 09:00:00 [facility] [id number] [facility] 2021-09-27 14:00:00 2021-09-27 15:18:08 Outpatient R HIRAM [facility] [id number] [facility] 2021-09-27 14:00:00 2021-09-27 15:18:08 Office Visit Hiram [facility] MANASA?[facility] 1.2.840.114 350.1.13.10 4.2.7.2.686 [id number] [facility] 2021-09-27 14:00:00 2021-09-27 15:18:08 Outpatient R [facility] [id number] [facility] 2021-09-27 00:00:00 2021-09-27 00:00:00 Abstract [facility] 1.2.840.114 350.1.13.10 4.2.7.2.686 [id number] [facility] 2021-09-25 14:00:00 2021-09-25 14:00:00 Outpatient [facility] [id number] [facility] 2021-09-25 14:00:00 2021-09-25 14:00:00 Outpatient R HIRAM [facility] [id number] [facility] 2021-09-25 14:00:00 2021-09-25 14:00:00 Outpatient R HIRAM [facility] [id number] [facility] 2021-09-25 00:00:00 2021-09-25 00:00:00 Letter (Out) Pretty Wolff [facility] 1.2.840.114 350.1.13.10 4.2.7.2.686 [id number] [facility] 2021-09-24 14:04:00 2021-09-24 16:04:00 Emergency Abdirashid Donohue S [facility] 1.2.840.114 350.1.13.10 4.2.7.2.686 [id number] [facility] 2021-09-24 14:04:00 2021-09-24 16:04:00 Emergency X LEANNE DONOHUEMARIA ESTHER [facility] ERT [id number] [facility] 2021-09-24 14:04:00 2021-09-24 14:04:00 Emergency X ABDIRASHID DONOHUE [facility] ERT [id number] [facility] 2021-09-24 12:00:00 2021-09-24 12:27:00 Outpatient MAXINE MEYERS [facility] [id number] [facility] 2021-09-24 12:00:00 2021-09-24 12:27:00 Urgent Care Umair [facility] 1.2.840.114 350.1.13.10 4.2.7.2.686 [id number] [facility] 2021-09-24 12:00:00 2021-09-24 12:27:00 Outpatient MAXINE MEYERS [facility] [id number] [facility] 2021-09-24 12:00:00 2021-09-24 12:27:00 Outpatient MAXINE MEYERS [facility] [id number] [facility] 2021-09-24 12:00:00 2021-09-24 12:27:00 Outpatient MAXINE MEYERS [facility] [id number] [facility] 2021-09-24 12:00:00 2021-09-24 12:27:00 Outpatient MAXINE MEYERS [facility] [id number] [facility] 2021-09-24 12:00:00 2021-09-24 12:27:00 Outpatient R MAXINE PRINCE [facility] [id number] [facility] 2021-09-24 12:00:00 2021-09-24 12:27:00 Outpatient R MAXINE PRINCE [facility] [id number] [facility] 2021-09-24 12:00:00 2021-09-24 12:27:00 Outpatient R MAXINE PRINCE [facility] [id number] [facility] 2021-09-24 12:00:00 2021-09-24 12:27:00 Outpatient R [facility] [id number] [facility] 2021-09-24 12:00:00 2021-09-24 12:27:00 Outpatient R UMAIRMAXINE [facility] [id number] [facility] 2021-06-11 11:15:00 2021-06-11 11:15:00 Outpatient R NADEEM WARREN [facility] [id number] [facility] 2021-04-23 11:15:00 2021-04-23 11:15:00 Outpatient R NADEEM WARREN [facility] [id number] [facility] 2021-04-19 11:00:00 2021-04-19 11:00:00 Outpatient R MATT MARTIN [facility] [id number] [facility] 2021-03-29 11:00:00 2021-03-29 11:00:00 Outpatient R MATT MARTIN [facility] [id number] [facility] 2021-03-28 14:26:37 2021-03-28 23:59:00 Outpatient R NADEEM WARREN [facility] [id number] [facility] 2021-03-28 14:26:37 2021-03-28 23:59:00 Hospital Encounter Nadeem Warren [facility] 1.2.840.114 350.1.13.10 4.2.7.2.686 [id number] [facility] 2021-03-14 10:45:00 2021-03-14 11:00:00 Office Visit Nadeem Warren [facility] 1.2.840.114 350.1.13.10 4.2.7.2.686 [id number] [facility] 2021-03-14 10:45:00 2021-03-14 10:45:00 Outpatient R NADEEM WARREN [facility] [id number] [facility] 2021-03-14 09:45:00 2021-03-14 10:30:00 Ancillary Visit Kamila Helton Deborah L [facility] 1.2840.114 350.1.13.10 4.2.7.2.686 [id number] [facility] 2021-03-14 09:45:00 2021-03-14 09:45:00 Outpatient YARELIS MARTIN [facility] [id number] [facility] 2021-03-14 09:45:00 2021-03-14 09:45:00 [facility] [id number] [facility] 2021-03-14 00:00:00 2021-03-14 00:00:00 Orders Only Doctor Unassigned, [place] [facility] 1.2840.114 350.1.13.10 4.2.7.2.686 [id number] [facility] 2021-02-15 16:15:00 2021-02-15 16:15:00 Outpatient MATT DENNEY [facility] [id number] [facility] 2021-02-15 16:15:00 2021-02-15 16:15:00 Outpatient MATT DENNEY [facility] [id number] [facility] 2021-01-04 15:00:00 2021-01-04 15:00:00 Outpatient MATT DENNEY [facility] [id number] [facility] 2021-01-04 15:00:00 2021-01-04 15:00:00 Outpatient MATT DENNEY [facility] [id number] [facility] 2020-11-19 16:36:36 2020-11-19 16:56:36 Urgent Care Provider, [facility] 1..840.114 350.1.13.10 4.2.7.2.686 [id number] [facility] 2020-11-19 16:40:00 2020-11-19 16:40:[address] [facility] [id number] [facility] 2020-10-19 13:00:00 2020-10-19 13:00:00 Outpatient Isaac MILLAN SUNNI [facility] [id number] [facility] 2020-10-19 13:00:00 2020-10-19 13:00:00 Outpatient Isaac MILLAN SUNNI [facility] [id number] [facility] 2020-09-23 08:00:00 2020-09-23 08:00:00 Outpatient DVE MCDONALD [facility] [id number] [facility] 2020-09-23 08:00:00 2020-09-23 08:00:00 Outpatient DEV MCDONALD [facility] [id number] [facility] 2020-06-28 13:40:14 2020-06-28 14:10:14 Office Visit Matt Martin [facility] 1..840.114 350.1.13.10 4.2.7.2.686 [id number] 2020-06-28 13:45:00 2020-06-28 13:45:00 Outpatient MATT DENNEY [facility] [id number] [facility] 2020-06-28 10:15:00 2020-06-28 10:15:00 Outpatient MATT DENNEY [facility] [id number] [facility] 2020-06-23 14:28:32 2020-06-23 15:13:32 Ancillary Visit Jeannie Velasco [facility] 1.2.840.114 350.1.13.10 4.2.7.2.686 [id number] 2020-06-23 14:30:00 2020-06-23 14:30:00 Outpatient MATT DENNEY [facility] [id number] [facility] Results Test Description Test Time Test Comments Results Result Co mments Source [facility] R[facility]OM DKHAL0580-02-19 00:00:00* Test Item Value Reference Range Interpretation Comme nts ALBUMIN, URINE, RANDOM (test code = 68184-5) 0.4 MG/DL NOT ESTAB MG/DL CALC ALBUMIN/CREAT, RND (test code = 12982-1) 2 MG/G See_Comment [Automated Roundsa ge] The system which generated this result transmitted reference range: <30 MG/G. The reference range was not used to interpret this result as normal/abnormal. CREATININE, URINE, CONC. (test code = 2161-8) 166.9 MG/DL NOT ESTAB MG/DL POCT GLUCOSE (AUTOMATED)2022-10-23 12:55:29* Test Item Value Reference Range Interpretation Comme nts POCT GLU (test code = 5641214881) 86 mg/dL 70-110 Lab Interpretation (test cod e = 61511-9) [facility]2022-10-23 12:55:29* Test Item Value Reference Range Interpretation Comme nts POCT GLU (test code = 0754728326) 86 mg/dL 70-110 Lab Interpretation (test cod e = 52029-4) Normal [facility] [id number] 22:13:17* Test Item Value Reference Range Interpretation Comme nts HCV Ab (test code = 77428-5) Negative HCV Semi-Quantitative (test code = 91889-1) [facility] HEMOGLOBIN (A1C)2021-09-28 21:54:30* Test Item Value Reference Range Interpretation Comme [facility] HGB A1C (test code = 4548-4) 6.6 % 4-5.7 H YAHAIRA (test code = YAHAIRA) Reference RangesNormal: <5.7%Prediabetes: 5.7 - 6.4%Diabetes: > 6.5% Lab Interpretation (test code = 87088-4) Abnormal [facility]IT[facility] D, [id number] 21:50:12* Test Item Value Reference Range Interpretation Comme [facility] VIT D 25OH (test code = 22262-9) 46 ng/mL 25-80 YAHAIRA (test code = YAHAIRA) Deficiency: <20 ng/mLInsufficiency : 20-24 ng/mLOptimal: 25-80 ng/mL Lab Interpretation (test code = 59618-0) Normal [facility] STIMULATING [id number] 21:08:47 * Test Item Value Reference Range Interpretation Comme [facility] TSH (test code = 2454947339) See_Comment [Automated messa ge] The system which generated this result transmitted reference range: 0.45 - 4.70 mIU/L. The reference range was not used to interpret this result as normal/abnormal. Lab Interpretation (test code = 09762-6) Normal [facility]. METABOLIC PANEL (13426)2021-09-28 20:52:03* Test Item Value Reference Range Interpretation Comme [facility] NA (test code = 5870522241) 142 mmol/L 135-145 K (test code = 0397383779) 3.9 mmol/L 3.5-5 CL (test code = 9409657720) 105 mmol/L 98-108 CO2 TOTAL (test code = 3820759554) 31 mmol/L 23-31 AGAP (test code = 9917184941) 2-16 BUN (test code = 6885126598) 14 mg/dL 7-23 GLUCOSE (test code = 5571409731) 98 mg/dL 70-110 CREATININE (test code = 5195801191) 0.84 mg/dL 0.5-1.04 TOTAL BILI (test code = 2689319446) 0.3 mg/dL 0.1-1.1 CALCIUM (test code = 4675302835) 8.5 mg/dL 8.6-10.6 L T PROTEIN (test code = 9032618398) 5.7 g/dL 6.3-8.2 L ALBUMIN (test code = 8433788366) 3.5 g/dL 3.5-5 ALK PHOS (test code = 0917729157) 68 U/L 34-122 ALTv (test code = 1742-6) 15 U/L 5-35 AST(SGOT) (test code = 6152367206) 26 U/L 13-40 eGFR (test code = 8832978852) mL/min/1.73m2 YAHAIRA (test code = YAHAIRA) Association [...] imaging tests). Lab Interpretation (test code = 91653-6) [facility] BranchLIP[facility] (58453)(TOTAL CHOLESTEROL, TRIGLYCERIDES, HDL)2021-09-28 20:52:03* Test Item Value Reference Range Interpretation Comme nts CHOL (test code = 7086131969) 176 mg/dL 120-200 HDL (test code = 2468132983) 45 mg/dL See_Comment L [Automated Roundsa [employer] [employer]] The system which generated this result transmitted reference range: >=50. The reference range was not used to interpret this result as normal/abnormal. HDLC RATIO (test code = 3096334824) See_Comment [Automated Roundsa [employer] [employer]] The system which generated this result transmitted reference range: <=4.5. The reference range was not used to interpret this result as normal/abnormal. TRIG (test code = 9279769534) 81 mg/dL 30-170 LDL CHOL (test code = 05051-0) 115 mg/dL See_Comment [Automated Roundsa [employer] [employer]] The system which generated this result transmitted reference range: <=160. The reference range was not used to interpret this result as normal/abnormal. VLDL (test code = 5124859801) 16 mg/dL 5-60 Lab Interpretation (test code = 56895-6) Abnormal [facility] 17:21:00* Test Item Value Reference Range Interpretation Comme nts GLUBED (test code = GLUBED) 192 mg/dL 60-125 H [id number] 12:43:00* Test Item Value Reference Range Interpretation Comme nts GLUBED (test code = GLUBED) 138 mg/dL 60-125 H BASIC METABOLIC [id number] 07:12:00* Test Item Value Reference Range Interpretation [...] 54.3 >60 Unit of m easure: mL/min/1.73 q0Hnedarsdk Range:Healthy Adults >90 mL/min/1.73 m2 For Chronic Kidney Disease: Stage II Mild Decrease in GFR 60-90 Stage III Moderate Decrease in GFR 30-59 Stage IV Severe Decrease in GFR 15-29 Stage V Kidney Failure <15Unit of measure: mL/min/1.73 j3Qczvseiqz Range:Healthy Adults >90 mL/min/1.73 m2 For Chronic Kidney Disease: Stage II Mild Decrease in GFR 60-90 Stage III Moderate Decrease in GFR 30-59 Stage IV Severe Decrease in GFR 15-29 Stage V Kidney Failure <15 CREATININE (test code = CREAT) 1.0 mg/dL 0.5-1.0 CALCIUM (test code = CA) 7.4 mg/dL 8.4-10.2 L BASIC METABOLIC [id number] 07:11:00* Test Item Value Reference Range Interpretation [...] = CA) 7.4 mg/dL 8.4-10.2 L HGB [id number] 05:48:00* Test Item Value Reference Range Interpretation Comme nts HEMOGLOBIN (test code = HGB) 9.2 g/dL 12-16 L HEMATOCRIT (test code = HCT) 27.3 % 37-47 L [id number] 05:27:00* Test Item Value Reference Range Interpretation Comme nts GLUBED (test code = GLUBED) 150 mg/dL 60-125 H [id number] 20:15:00* Test Item Value Reference Range Interpretation Comme nts GLUBED (test code = GLUBED) 152 mg/dL 60-125 H [id number] 16:53:00* Test Item Value Reference Range Interpretation Comme nts GLUBED (test code = GLUBED) 170 mg/dL 60-125 H - XR PELVIS 1/2 [id number] 16:35:00Patient Name: KATHIE HUNTER Unit No: [id number] EXAMS: CPT CODE: [id number] XR PELVIS 1/2 VIEWS 96407 INTRAOPERATIVE LEG LENGTH FILM COMMENT: COMPARISON: No prior exams available. In progress right hip replacement is noted. AP PORTABLE RIGHT HIP COMMENT: The patient is status post joint replacement which is articulating normally. at 1635 Reported and signed by: Jake Shahid MD CC: Akin Ragsdale Technologist: Isaac MANRIQUEZ (RT.R) Transcribed D/ (8097) [place] [facility] NAME: KATHIE HUNTER [address] [facility] PHYS: GOPARISH Mancuso MelyssaAkinserene Mcleod : 1945 AGE: 72 SEX: F [place], [place] [address] LOC: Y.522 A PHONE #: [phone] EXAM DATE: 09/24/2018 STATUS: ADM IN FAX #: [phone] RAD #: D/C DT PAGE 1 Signed Report Patient Name: KATHIE HUNTER Unit No: [id number] EXAMS: CPT CODE: [id number] XR PELVIS 1/2 VIEWS 06375 (Continued) Orig Print D/T: S: 09/24/2018 (1638) [place] [facility] NAME: KATHIE HUNTER [address] [facility] PHYS: Akin Kay : 1945 AGE: 72 SEX: F [place], [place] [address] LOC: Y.522 A PHONE #: [phone] EXAM DATE: 09/24/2018 STATUS: ADM IN FAX #: [phone] RAD #: D/C DT PAGE 2 Signed Report - XR PELVIS 1/2 [id number] 16:35:00Patient Name: KATHIE HUNTER Unit No: [id number] EXAMS: CPT CODE: [id number] XR PELVIS 1/2VIEWS 29328 INTRAOPERATIVE LEG LENGTH FILM COMMENT: COMPARISON: No prior exams available. In progress right hip replacement is noted. AP PORTABLE RIGHT HIP COMMENT: The patient is status post joint replacement which is articulating normally. Electronically Signed by Jake Shahid MD on09/24/2018 at 1635 Reported and signed by: Jake Shahid MD CC: Aikn Ragsdale Technologist: DESTINY ESTES RT(R) Transcribed D/ (5765) [email or web address] [facility] NAME: KATHIE HUNTER [address] [facility] PHYS: Akin Kay : 1945 AGE: 72 SEX: F [place] [address] LOC: Y.522 A PHONE #: [phone] EXAM DATE: 09/24/2018 STATUS: ADM IN FAX #: [phone] RAD #: D/C DT PAGE 1 Signed Report Patient Name: KATHIE HUNTER Unit No: [id number] EXAMS: CPT CODE: [id number] XR PELVIS 1/2 VIEWS 02633 (Continued)Orig Print D/T: S: 09/24/2018 (1638) [facility] NAME: KATHIE HUNTER [address] [facility] PHYS: Akin Kay : 1945 AGE: 72 SEX: F [place] [address] LOC: Y.522 A PHONE #: [phone] EXAM DATE: 09/24/2018 STATUS: ADM IN FAX #: [phone] RAD #: D/C DT PAGE 2 Signed Report [id number] 08:12:00* Test Item Value Reference Range Interpretation Comme nts GLUBED (test code = GLUBED) 85 mg/dL 60-125 N AB HIV 1 [id number] 21:46:00* Test Item Value Reference Range Interpretation Comme nts AB HIV 1 2 (test code = PII35JF) NONREACTIVE NONREACTIVE Done by [employer] 4th Gen HIV Ag/Ab Combo Screen AB HIV 21:46:00* Test Item Value Reference Range Interpretation Comme nts AB HIV 1 (test code = HIV1AB) NONREACTIVE NONREACTIVE DONE AT: [address] [id number] by [employer] 4th Gen HIV Ag/Ab Combo Screen PROTHROMBIN [id number] 19:20:00* Test Item Value Reference Range Interpretation [...] BLOOD, PT every other day NTHROMBOPLASTIN TIME [id number] 19:20:00 * Test Item Value Reference Range Interpretation Comme nts PTT ACTIVATED (test code = APTT) 29.9 secs 24.9-37.0 N IS PATIENT ON ANTICOAGULANTS ? YLIST ANTICOAGULANT/ANTI PLT MEDICATION : AspirinHas Lab been notified if Patient is on Heparin Drip? NOIf Yes, order CBC, OCCULT BLOOD, PT every other day NCOMPREHENSIVE METABOLIC [id number] 19:17:00* Test Item Value Reference Range Interpretation [...] 52.5 >60 Unit of m easure: mL/min/1.73 c2Bvgwnvevn Range:Healthy Adults >90 mL/min/1.73 m2 For Chronic [...] = ALKP) 91 U/L 46-116 N URINALYSIS [id number] 19:02:00* Test Item Value Reference Range Interpretation [...] 1.003-1.035 UA BLOOD DIPSTICK (test code = XAVI) NEGATIVE NEGATIVE UA PH DIPSTICK (test code [...] = BACU) FEW /HPF NONE CBC W/AUTO [id number] 18:55:00* Test Item Value Reference Range Interpretation [...] fructosamineshould be considered for these patients.DONE AT: [address] [address] GLYCOSYLATED HEMOGLOBIN [id number] 19:01:00* Test Item Value Reference Range Interpretation [...] MBG) 140 MG/DL 70-110 H COMPREHENSIVE METABOLIC [id number] 17:18:00* Test Item Value Reference Range Interpretation [...] 59.8 >60 Unit of m easure: mL/min/1.73 h0Zvezbghzt Range:Healthy Adults >90 mL/min/1.73 m2 For Chronic [...] = ALKP) 93 U/L 46-116 N PROTHROMBIN [id number] 16:54:00* Test Item Value Reference Range Interpretation [...] BLOOD, PT every other day NTHROMBOPLASTIN TIME [id number] 16:54:00 * Test Item Value Reference Range Interpretation Comme nts PTT ACTIVATED (test code = APTT) 29.6 secs 24.9-37.0 N IS PATIENT ON ANTICOAGULANTS ? YLIST ANTICOAGULANT/ANTI PLT MEDICATION : AspirinHas Lab been notified if Patient is on Heparin Drip? NOIf Yes, order CBC, OCCULT BLOOD, PT every other day NCBC W/AUTO [id number] 16:21:00* Test Item Value Reference Range Interpretation [...] was no change in the patient's condition. [facility] Notes Date/Time Note Provider Source 2024-04-20 16:07:55 Chief Complaint Patient presents with Follow-Up Visit No noted acute distress. Vital signs stable. [phone] (home) [phone] (work) [facility] Denisha Santamaria MA [facility] 2024-04-16 13:33:13 Chief Complaint Patient presents with Physical Due for her HRA/physical, not fasting Marianne Villa MA II [facility] 2022-10-22 12:26:27 Formatting of this n ote might be different from the original. Arrival time given for 10/23/22 at 0800. No reported change in health condition since pre-op screening call. No significant medical visits noted in chart review notes or reported by patient. Mana Hong RN [facility] 2022-10-17 17:26:09 Formatting of this n ote might be different from the original. Images from the original note were not included. Your procedure is at [facility] on 10/23/22. The address is [address] [place] [address], [address]. [facility] nursing staff will call you the workday [...] voiced no further questions at this time. [facility] 2018-10-07 07:49:00 [facility] ([facility]) Discharge Summary REPORT#:[id number] REPORT STATUS: Signed DATE:10/07/18 TIME: 748 PATIENT: KATHIE HUNTER UNIT #: [id number] ROOM/BED: Y522-A : 44 AGE: 72 SEX: F ATTEND: [...] up: In 1-2 weeks at 0753 RPT #:[id number] 2018-09-25 10:04:00 [facility] ([facility]) Clinical Note REPORT#:[id number] REPORT STATUS: Signed DATE:09/25/18 TIME: 1004 PATIENT: KATHIE HUNTER UNIT #: [id number] ROOM/BED: [address] : 44 AGE: 72 SEX: F ATTEND: Akin Ragsdale MD ADM AUTHOR: Alexandr Delgado MD * ALL edits or amendments must be made on the electronic/computer document * Clinical Note Note: [facility] Alexandr Blanca M.D. (cell text [phone]) Assessment/Plan 1.) Anemia of acute blood loss- [...] L Alexandr Blanca M.D. at 1043 RPT #:[id number] END OF REPORT [facility] 2018-09-25 07:28:00 [facility] ([facility]) Clinical Note REPORT#:[id number] REPORT STATUS: Signed DATE:09/25/18 TIME: 727 PATIENT: KATHIE HUNTER UNIT #: [id number] ROOM/BED: [address] : 44 AGE: 72 SEX: F [...] patient may shower Discharge planning at 0728 [facility] #:[id number] END OF REPORT [facility] 2018-09-24 17:42:00 [facility] ([facility]) Clinical Note REPORT#:[id number] REPORT STATUS: Signed DATE:09/24/18 TIME: 1741 PATIENT: KATHIE HUNTER UNIT #: [id number] ROOM/BED: [address] : 44 AGE: 72 SEX: F ATTEND: Akin Ragsdale MD ADM AUTHOR: Alexandr Delgado MD * ALL edits or amendments must be made on the electronic/computer document * Clinical Note Note: [facility] Alexandr Blanca MD (cell text [phone]) Internal Medicine Consult at request of : [...] MG PO Q4H SgHx: .Gastric sleeve in 2013, Hysterectomy, Tonsillectomy SHx: Tob: Quit 1994, 1 ppd x 30 yrs, FHx: .No significant hx of DVT/PE. Alcohol: none Drugs: none Lives: with family Vitals: Vital Signs Date Temp Pulse Resp B/P B/P Mean Pulse Ox FiO2 09/24 96.6-98.4 58-66 11-16 129-163/62-70 93-97 97-100 32 [...] on Rx. Alexandr Blanca M.D. Thanks! at 3367 [facility] #:[phone] 2018-09-24 10:07:00 [facility] ([facility]) Operative Note - Full REPORT#:[id number] REPORT STATUS: Signed DATE:09/24/18 TIME: 1007 PATIENT: KATHIE HUNTER UNIT #: [id number] ROOM/BED: [place] [address] : 44 AGE: 72 SEX: F ATTEND: [...] obtained was placed supine on a well-padded [place] table. The leg was then prepped in [...] the recovery in stable condition. INDICATIONS FOR MECHANIC FIELD SERVICE The presence of a skilled cafeteria assistant was medically necessary to aid for the [...] the procedure and not possible without an pediatric dental assistant. In addition having an pediatric dental assistant shortens operative times which decreases expenses and improves outcomes. I am not part of any residency or fellowship training programs and therefore require the help of the pediatric dental assistant listed above for this surgery. IMPLANTS Depuy 54mm [place] cup, 36+4 liner, 4 hi trilock, 36+1.5 mm CERAMIC head Primary Surgeon: MELYSSA Inventory Control Associate(s): BEATRIZ PALOMARES Anesthesia: TIVA Operative findings: OA Complications: none Estimated blood loss in ml's: 300 Specimens removed/altered: none Implant(s): DEPUY at 1009 RPT #:[id number] END OF REPORT [facility] 2018-07-08 15:07:00 [id number] [place] [address] PATIENT NAME: KATHIE HUNTER ADMIT DATE: ACCOUNT NO: [id number] ROOM NO: AGE: 72 REPORT TYPE: ELECTROCARDIOGRAM SEX: F ADMITTING PHYSICIAN:Jose Carlos Alicea MD ATTENDING PHYSICIAN:Jose Carlos Alicea MD Order: [id number] Test Reason : PRE OP CLEARANCE, H/O [...] ECGs available Confirmed by ELINOR OWENS MD ([id number]) on 07/11/2018 12:46:17 PM Referred By: Jose Carlos Alicea Confirmed by:ELINOR OWENS MD at 9921 PATIENT NAME: KATHIE HUNTER [facility]
[2024-10-13 11:37] LABS: Absolute Lymphocytes (CBC) 1.2 K/uL (0.7-4.9); Hematocrit 37.1 % (36.0-45.0); Hemoglobin 12.4 g/dL (12.0-15.0); MCH 29.4 pg (27.0-35.0); MCHC 33.4 g/dL (32.0-36.0); MCV 87.9 fL (80-100); MPV 8.2 fL (7.6-11.3); Nucleated RBC Absolute Count 0.0 (0-0); Nucleated Red Blood Cells % 0.0 % (0-0); RBC Red Blood Cell Count 4.22 M/uL (3.86-4.86); White Blood Count 8.10 thou/uL (4.3-10.9)
[2024-10-13 11:43] LABS: PT Prothrombin Time 12.4 SECONDS (10-13.0); Protime INR 1.1
--- NOTE | 2024-10-13 11:51 | RAD REPORT ---
EXAMINATION: CT Abdomen Pelvis Wo Contrast CLINICAL INDICATION: Female, 78 years old. ABD PAIN TECHNIQUE: CT abdomen and pelvis was performed, without IV contrast, as per department protocol. Axia l, sagittal and coronal reconstructions were obtained. One or more of the following dose reduction techniques were used: Automated exposure control, adjustment of the mA and kV according to the patien t size, and iterative reconstruction. Unless otherwise specified, incidental findings do not require dedicated imaging follow-up. COMPARISON: CT chest 07/07/2024 FINDINGS: The lack of intravenous contrast limits the sensitivity of this exam for evaluation of solid visceral organs, vascular structures, and retroperitoneum. LOWER CHEST: The visualized lung bases are clear. LIVER: Normal in size and contour. No focal lesion. BILIARY SYSTEM: No suspicious abnormalities. SPLEEN: Normal size. No focal lesion. PANCREAS: No mass, ductal dilation, or alicia-pancreatic fluid. ADRENALS: Normal; no mass. KIDNEYS AND URETERS: Normal size and contour. No hydronephrosis. URINARY BLADDER: Normal contour. GASTROINTESTINAL TRACT: Sequelae of gastric bypass. No evidence of bowel obstruction, significant elvira e fluid, free air or abscess. APPENDIX: Normal appendix. LYMPH NODES: No lymphadenopathy. MUSCULOSKELETAL: Right total hip arthroplasty hardware, with resulting streak artifact, limits evalua tion of the lytic structures. No acute or suspicious osseous abnormality. ADDITIONAL FINDINGS: None. IMPRESSION: No acute or concerning abnormalities in the abdomen or pelvis, with evaluation limited by lack of IV contrast.
[2024-10-13 12:02] LABS: AST/SGOT 13 U/L (15-37); Albumin 3.3 g/dL (3.4-5.0); Albumin/Globulin Ratio 1.1 (1.1-1.8); Alkaline Phosphatase 107 U/L (45-117); Anion Gap 7.7 mEq/L (5.0-15.0); BUN Blood Urea Nitrogen 13 mg/dL (7-18); Globulin 3.0 g/dL (2.3-3.5); Glucose Level 103 mg/dL (74-106); Lipase 15 U/L (13-75); Potassium 3.7 mEq/L (3.5-5.1)
[2024-10-13 12:03] LABS: ALT/SGPT < 14 U/L (13-56)
[2024-10-13] MEDS ORDERED: MORPHINE 2 MG/ML SYR ONE (12:04)
[2024-10-13] MEDS ORDERED: ONDANSETRON 4 MG/2 ML VIAL ONE (12:05)
[2024-10-13] MEDS ORDERED: NA CHLORIDE 0.9% 1,000 ML ONE (12:05)
--- NOTE | 2024-10-13 13:29 | EDPHYS ---
Physician Documentation [facility] Name: Kathie Hunter Age: 78 yrs Sex: Female : 1945 Arrival Date: 10/13/2024 Time: 10:17 Bed 18 Private MD: ED Physician Yola Love HPI: 10/13 16:52 This 78 yrs old Female presents to ER via Ambulatory with complaints of dr5 Vomiting, Abdominal Pain. 16:52 The patient presents to the emergency department with nausea, vomiting. Onset: The dr5 symptoms/episode began/occurred 2 month(s) ago. Patient states that he 8-year-old female with history of diabetes, high cholesterol, hypertension coming in with nausea vomiting this been going on for the past couple months. Patient reports that when she eats small amounts of food she has episode of vomiting afterwards. Patient reports gastric bypass surgery 10 years ago. Patient also reports that she started having black vomit this morning after taking Pepto-Bismol. Patient denies chest pain, nausea, vomiting and diarrhea. Patient also denies having primary care doctor and has not been seen for this since it started. Historical: - Allergies: 10:36 Iodine (Anaphylaxis); ap3 10:36 Latex; ap3 - PMHx: 10:36 diabetes mellitus; High Cholesterol; Hypertensive disorder; ap3 - PSHx: 10:36 Gastric Bypass; hysterectomy; Tonsillectomy; TOTAL HIP REPLACEMENT; ap3 - Immunization history:: Adult Immunizations up to date. - Infectious Disease History:: Denies. - Social history:: Smoking status: Patient denies any tobacco usage or history of. ROS: 16:52 Constitutional: as per hpi dr5 Exam: 17:26 Constitutional: This is a well developed, well nourished patient who is awake, alert, dr5 and in no acute distress. Head/Face: Normocephalic, atraumatic. Eyes: Pupils equal round and reactive to light, extra-ocular motions intact. Lids and lashes normal. Conjunctiva and sclera are non-icteric and not injected. Cornea within normal limits. Periorbital areas with no swelling, redness, or edema. Neck: Trachea midline, no thyromegaly or masses palpated, and no cervical lymphadenopathy. Supple, full range of motion without nuchal rigidity, or vertebral point tenderness. No Meningismus. Chest/axilla: Normal chest wall appearance and motion. Nontender with no deformity. No lesions are appreciated. Cardiovascular: Regular rate and rhythm with a normal S1 and S2. Normal PMI, no JVD. No pulse deficits. Respiratory: Lungs have equal breath sounds bilaterally, clear to auscultation. No rales, rhonchi or wheezes noted. No increased work of breathing, no retractions or nasal flaring. Abdomen/GI: Soft, non-tender, non-distended Back: No spinal tenderness. No costovertebral tenderness. Full range of motion. Skin: Warm, dry with normal turgor. Normal color with no rashes, no lesions, and no evidence of cellulitis. MS/ Extremity: Pulses equal, no cyanosis. Neurovascular intact. Full, normal range of motion. Neuro: Awake and alert, GCS 15, oriented to person, place, time, and situation. Cranial nerves II-XII grossly intact. Motor strength 5/5 in all extremities. Sensory grossly intact. Cerebellar exam normal. Normal gait. Vital Signs: 10:35 BP 143 / 85; Pulse 72; Resp 18; Temp 98.2; Pulse Ox 100% ; Weight 63.5 kg; Height 5 ft. ap3 5 in. ; 11:50 BP 158 / 79; Pulse 69; Resp 16; Pulse Ox 95% ; me1 12:10 BP 148 / 71; Pulse 76; Resp 17; Pulse Ox 100% ; rg5 13:19 BP 149 / 83; Pulse 72; Resp 18; Pulse Ox 100% on R/A; rg5 10:35 Body Mass Index 23.30 (63.50 kg, 165.1 cm) ap3 MDM: 10:21 Medical Screening Exam initiated dr5 17:26 Differential diagnosis: Nonspecific abd pain, gastritis, pancreatitis, diverticulitis, dr5 viral gastroenteritis, gastroenteritis. Data reviewed: vital signs, nurses notes, lab test result(s), cardiac enzymes, troponin i, CBC, white blood cell count, hemoglobin, hematocrit, platelets, electrolytes, sodium, potassium, chloride, serum bicarbonate, BUN, creatinine, serum glucose, EKG, radiologic studies, CT scan. Consideration of Admission/Observation Escalation of care including admission/observation considered. Admission considered if patient found to have abnormality on CT scan.. I considered the following discharge prescriptions or medication management in the emergency department I discussed and recommended Over The Counter medications, Medications were administered in the Emergency Department. See MAR. Care significantly affected by the following chronic conditions: Diabetes, Hypertension, Hyperlipidemia. Care significantly affected by the following Social Determinants of Health: Poor access to healthcare and/or lack of insurance, Poor access to transportation, Problems related to employment. Counseling: I had a detailed discussion with the patient and/or guardian regarding the historical points, exam findings, and any diagnostic results supporting the discharge/admit diagnosis, the presence of at least one elevated blood pressure reading (>120/80) during this emergency department visit, lab results, radiology results, the need for outpatient follow up, for definitive care, a air lift operator, to return to the emergency department if symptoms worsen or persist or if there are any questions or concerns that arise at home. Medication response: morphine relieved the patient's pain. Symptoms have resolved, Zofran relieved the patient's nausea. Response to treatment: the patient's symptoms have resolved after treatment, the patient's condition has returned to base line. Special discussion: I have referred the patient to see his PCP for further evaluation of high blood pressure. I discussed with the patient/guardian in detail that at this point there is no indication for admission to the hospital. It is understood, however, that if the symptoms persist or worsen the patient needs to return immediately for re-evaluation. Based on the history and exam findings, there is no indication for further emergent testing or inpatient evaluation. I discussed with the patient/guardian the need to see the air lift operator for further evaluation of the symptoms. ED course: Patient is feeling better. Explained that black vomit is likely due to Pepto Bismol. Patient denies pain and reports he is so much better. Will have patient establish care at [facility] for primary care and recommended follow-up with GI for further management. All questions are answered. Patient reports he is so much better. Strict ER precautions given.. 10/13 10:44 Order name: CBC with Diff; Complete Time: 12:10/13 10:44 Order name: CMP; Complete Time: 12:10/13 10:44 Order name: Lipase; Complete Time: 12:10/13 10:47 Order name: Troponin HS; Complete Time: 12:10/13 10:50 Order name: PT-INR; Complete Time: 12:10/13 10:50 Order name: Type And Screen; Complete Time: 13:06 dr5 10/13 10:45 Order name: CT Abd/Pelvis - Without Contrast; Complete Time: 12:10 [facility] 10/13 10:44 Order name: IV Saline Lock; Complete Time: 12:01 dr5 10/13 10:44 Order name: Labs collected and sent; Complete Time: 12:02 dr5 10/13 10:47 Order name: Cardiac monitoring; Complete Time: 12: dr5 10/13 10:47 Order name: EKG - Nurse/Tech; Complete Time: 12: dr5 10/13 11:30 Order name: Labs - recollect needed: collect abo\E\rh no charge; Complete Time: 11:58 bd EC:03 Rate is 68 beats/min. Rhythm is regular. QRS [place] is Normal. AR interval is normal at dr5 140 msec. QRS interval is normal at 90 msec. QT interval is normal at 398 msec. Administered Medications: 12:21 Drug: Ondansetron IVP 4 mg IVP once; over 2 minutes Route: IVP; Site: right antecubital;rg5 13:30 Follow up: Response: No adverse reaction rg5 12:21 Drug: NS 0.9% IV 1000 ml IV at 1 bolus Per protocol; to be given as a bolus over 60 rg5 minutes Route: IV; Rate: 1 bolus; Site: right antecubital; 13:30 Follow up: IV Status: Completed infusion; IV Intake: 1000ml rg5 12:21 Drug: morphine IVP or IV 4 mg IVP once over 4 mins Route: IVP; Infused Over: 4 mins; rg5 Site: right antecubital; 13:00 Follow up: Response: No adverse reaction; Pain is decreased rg5 Disposition Summary: 10/13/24 13:29 Discharge Ordered Notes: Location: Home dr5 Condition: Stable dr5 Diagnosis - Nausea with vomiting, unspecified dr5 - Other abdominal pain dr5 Followup: dr5 - With: Emergency Department - When: As needed - Reason: Worsening of condition Followup: dr5 - With: Private Physician - When: 1 - 2 days - Reason: Recheck today's complaints, Continuance of care, Re-evaluation by your physician Followup: dr5 - With: Oleksandr Sandy MD - When: 1 week - Reason: Recheck today's complaints, Continuance of care, Re-evaluation by your physician Discharge Instructions: - Discharge Summary Sheet dr5 - Nausea and Vomiting, Adult dr5 Forms: - Medication Reconciliation Form dr5 - Patient Portal Instructions dr5 - Leadership Thank You Letter dr5 Prescriptions: - Reglan 10 mg Oral Tablet - take 1 tablet ORAL route every 6 hours take 30 minutes before meals and at dr5 bedtime; 20 tablet; Refills: 0, Product Selection Permitted - Zofran 4 mg Oral Tablet - take 1 tablet ORAL route every 12 hours As needed; 20 tablet; Refills: 0, dr5 Product Selection Permitted Signatures: Dispatcher [employer] EDMS Blanca Comer Amanda RN RN ap3 Kamron Berger, RN RN rg5 Geronimo Mosqueda, NUTRITIONIST PUBLIC HEALTH-C NUTRITIONIST PUBLIC HEALTH-Cdr5 Corrections: (The following items were deleted from the chart) 10:45 10:45 CBC+H.LAB.BRZ ordered. EDMS EDMS 10:45 10:45 COMPREHENSIVE METABOLIC PANEL+C.LAB.BRZ ordered. EDMS EDMS 10:45 10:45 LIPASE+C.LAB.BRZ ordered. EDMS EDMS 10:51 10:51 PROTIME (+INR)+COAG.LAB.BRZ ordered. EDMS EDMS 10:51 10:51 TYPE AND SCREEN+BB.LAB.BRZ ordered. EDMS EDMS
--- NOTE | 2024-10-13 13:29 | ER ---
Nurse's Notes [facility] Name: Kathie Hunter Age: 78 yrs Sex: Female : 1945 Arrival Date: 10/13/2024 Time: 10:17 Bed 18 Private MD: Diagnosis: Nausea with vomiting, unspecified;Other abdominal pain Presentation: 10/13 10:35 Chief complaint: Patient states: she started having abdominal pain and vomiting that ap3 started last night. patient states "everything i vomit is black, even water." Patient reports this has actually been going on for a while, where she vomits every time she eats, but last night was the worst. Coronavirus screen: At this time, the client does not indicate any symptoms associated with coronavirus-19. Ebola Screen: No symptoms or risks identified at this time. Initial Sepsis Screen: Does the patient meet any 2 criteria? No. Patient's initial sepsis screen is negative. Does the patient have a suspected source of infection? No. Patient's initial sepsis screen is negative. Risk Assessment: Do you want to hurt yourself or someone else? Patient reports no desire to harm self or others. Onset of symptoms was October 12, 2024. 10:35 Method Of Arrival: Ambulatory ap3 10:35 Acuity: MAURICE 3 ap3 Triage Assessment: 10:38 General: Appears in no apparent distress. Behavior is calm, cooperative, appropriate ap3 for age. Pain: Complains of pain in abdomen. Cardiovascular: Patient's skin is warm and dry. Respiratory: Airway is patent Respiratory effort is even, unlabored, Respiratory pattern is regular, symmetrical. GI: Reports lower abdominal pain, upper abdominal pain, nausea, vomiting. Historical: - Allergies: 10:36 Iodine (Anaphylaxis); ap3 10:36 Latex; ap3 - PMHx: 10:36 diabetes mellitus; High Cholesterol; Hypertensive disorder; ap3 - PSHx: 10:36 Gastric Bypass; hysterectomy; Tonsillectomy; TOTAL HIP REPLACEMENT; ap3 - Immunization history:: Adult Immunizations up to date. - Infectious Disease History:: Denies. - Social history:: Smoking status: Patient denies any tobacco usage or history of. Screenin:38 [facility] ED Fall Risk Assessment (Adult) History of falling in the last 3 months, ap3 including since admission No falls in past 3 months (0 pts) Confusion or Disorientation No (0 pts) Intoxicated or Sedated No (0 pts) Impaired Gait No (0 pts) Mobility Assist Device Used No (0 pt) Altered Elimination No (0 pt) Score/Fall Risk Level 0 - 2 = Low Risk Oriented to surroundings, Maintained a safe environment, Educated pt \\T\\ family on fall prevention, incl call for assistance when getting out of bed, Assessed \\T\\ reinforced patient's understanding of fall precautions, Hourly rounding (assess needs \\T\\ fall precautionary measures) done, Used ambulatory aids as needed (educated on \\T\\ assisted with). Abuse screen: Denies threats or abuse. Nutritional screening: No deficits noted. Tuberculosis screening: No symptoms or risk factors identified. Assessment: 11:25 General: Appears ill, well groomed, well developed, well nourished, Behavior is calm, me1 cooperative, appropriate for age, Reports she started having abdominal pain and vomiting that started last night. patient states "everything i vomit is black, even water." Patient reports this has actually been going on for a while, where she vomits every time she eats, but last night was the worst. Pain: Complains of pain in abdomen Pain does not radiate. Pain currently is 4 out of 10 on a pain scale. Quality of pain is described as crampy, Pain began 1 day ago. Is continuous. Neuro: Level of Consciousness is awake, alert, obeys commands, Oriented to person, place, time, situation, Appropriate for age. Cardiovascular: Patient's skin is warm and dry. Respiratory: Airway is patent Respiratory effort is even, unlabored, Respiratory pattern is regular, symmetrical. GI: Abdomen is non-distended, Reports lower abdominal pain, upper abdominal pain, cramping, nausea, vomiting, dark black emesis since last night. : No signs and/or symptoms were reported regarding the genitourinary system. EENT: No signs and/or symptoms were reported regarding the EENT system. Derm: Skin is intact, is healthy with good turgor, Skin is pink, warm \\T\\ dry. Musculoskeletal: No signs and/or symptoms reported regarding the musculoskeletal system. 12:10 Reassessment: No changes from previously documented assessment. Patient is alert, rg5 oriented x 3, equal unlabored respirations, skin warm/dry/pink. 13:36 Reassessment: Patient and/or family updated on plan of care and expected duration. Pain rg5 level reassessed. Patient is alert, oriented x 3, equal unlabored respirations, skin warm/dry/pink. Patient states symptoms have improved. Vital Signs: 10:35 BP 143 / 85; Pulse 72; Resp 18; Temp 98.2; Pulse Ox 100% ; Weight 63.5 kg; Height 5 ft. ap3 5 in. ; 11:50 BP 158 / 79; Pulse 69; Resp 16; Pulse Ox 95% ; me1 12:10 BP 148 / 71; Pulse 76; Resp 17; Pulse Ox 100% ; rg5 13:19 BP 149 / 83; Pulse 72; Resp 18; Pulse Ox 100% on R/A; rg5 10:35 Body Mass Index 23.30 (63.50 kg, 165.1 cm) ap3 ED Course: 10:19 Patient arrived in ED. al6 10:21 Geronimo Mosqueda FNP-C is [facility]. dr5 10:21 Yola Love MD is Attending Physician. dr5 10:36 Triage completed. ap3 10:38 Arm band placed on right wrist. ap3 11:07 CT Abd/Pelvis - Without Contrast In Process Unspecified. EDMS 11:25 Patient has correct armband on for positive identification. Bed in low position. Call me1 light in reach. Side rails up X2. Provided Education on: POC. Verbalized understanding.. Client placed on continuous cardiac and pulse oximetry monitoring. NIBP monitoring applied. potline monitor on. Pulse ox on. NIBP on. 11:25 No provider procedures requiring assistance completed. me1 11:47 Lala Thorne, AKUA is Primary Nurse. me1 12:01 Initial lab(s) drawn, by in, sent to lab. Inserted saline lock: 20 gauge in right ap3 antecubital area, using aseptic technique. Blood collected. Flushed with 10 mL NS. 12:06 EKG done, by pest control chemical technician. ts3 13:28 Oleksandr Sandy MD is Referral Physician. dr5 13:35 IV discontinued, bleeding controlled, No redness/swelling at site. Pressure dressing rg5 applied. Administered Medications: 12:21 Drug: Ondansetron IVP 4 mg IVP once; over 2 minutes Route: IVP; Site: right antecubital;rg5 13:30 Follow up: Response: No adverse reaction rg5 12:21 Drug: NS 0.9% IV 1000 ml IV at 1 bolus Per protocol; to be given as a bolus over 60 rg5 minutes Route: IV; Rate: 1 bolus; Site: right antecubital; 13:30 Follow up: IV Status: Completed infusion; IV Intake: 1000ml rg5 12:21 Drug: morphine IVP or IV 4 mg IVP once over 4 mins Route: IVP; Infused Over: 4 mins; rg5 Site: right antecubital; 13:00 Follow up: Response: No adverse reaction; Pain is decreased rg5 Medication: 11:25 VIS not applicable for this client. me1 Intake: 13:30 IV: 1000ml; Total: 1000ml. rg5 Outcome: 13:29 Discharge ordered by . dr5 13:35 Discharged to home ambulatory, rg5 13:35 Condition: stable 13:35 Discharge instructions given to patient, Instructed on discharge instructions, follow up and referral plans. Demonstrated understanding of instructions, follow-up care, medications, Prescriptions given X 2, 13:40 Patient left the ED. rg5 Signatures: Dispatcher [employer] EDMS Maxine Rojas RN RN ap3 Lala Thorne RN RN me1 Kamron Berger RN RN rg5 Geronimo Mosqueda FNP-C FNP-5 Miryam Wade al6 Adriana Mcleod ts3 Corrections: (The following items were deleted from the chart) 10:38 10:35 Chief complaint: Patient states: she started having abdominal pain and vomiting ap3 that started last night. patient states "everything i vomit is black, even water." ap3 12:11 10:35 Chief complaint: Patient states: she started having abdominal pain and vomiting me1 that started last night. patient states "everything i vomit is black, even water." Patient reports this has actually been going on for a while, where she vomits every time she eats, but last night was the worst ap3
[2024-10-13 13:44] VITALS: TEMP 98.2
[2024-10-13 13:47] VITALS: O2SAT 100
[2024-10-13 13:48] VITALS: BP 149/83
== END 2024-10-13 13:40 | disposition home or self-care (01) ==
LOC: ER 10:17
DX: R11.2 Nausea with vomiting, unspecified (principal); R10.9 Unspecified abdominal pain; Z98.84 Bariatric surgery status
CPT/HCPCS: 96361; 85025; 36415; 86900; 86850; 85610; 86901; 84484; 83690; 80053; 74176; 96375; 96374; 99285; J2270; J2405; J7030